=== PATIENT | female | born 1955 | race Caucasian/White ===

== ENCOUNTER 2018-01-21 14:53 | Emergency (ER) | payer OTHER ==
--- OUTSIDE RECORDS SUMMARY | 2018-01-21 15:02 | XMS REPORT | Continuity of Care Document ---
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/2017 [facility], dysfunction of [address] [place] [address] [facility] Atherosclerotic 08/13/19 11/13/2017 [facility] heart disease of [address] [place] [address] coronary Center artery without angina pectoris CAD/ CHEST PAIN Active 07/24/[address] 4 MONTHS Active 07/23/[address] G82.52 - Active 05/31/20 [facility] QUADRIPLEGIA, [address] [place] C1-C4 INCOMPLETE F/U Active 10/20/19 [facility] 17 10CC Active 08/08/19 [facility] 17 2 MONTH FU Active 08/08/19 [facility] 17 10 ML Active 07/04/19 [facility] 17 EVAL Active 06/07/20 [facility] 16 PHENOL Active 01/19/20 [facility] 16 1500 UNITS Active 01/19/20 [facility] 16 6 MONTH FOLLOW UP Active 01/03/[address] FOLLOW UP-3 MONTHS Active 08/23/[address] M50.02 - CERVICAL Active 06/29/19 [facility] DISC DISORDER WITH [facility] NEUROGENIC BLADDER Active 06/25/19 [facility] 6 MONTH EVALUATION 15 DC F/U Active 06/01/20 [facility] 14 QUADRAPLEGIA Active 05/03/20 [facility] 14 CHRONIC NECK PAIN Active 05/03/20 [facility] 14 NEUROGENIC Active 04/28/20 [facility] BLADDER/RETENTION 14 CAD Active 02/10/[address] CAD/SP PCI PRE- Active 02/02/20 [facility] Center CHF Active 07/08/19 [facility] [place] 14 Medical Center FOLLOW-UP NEW TO Active 11/18/19 [facility] FACILITY. 13 Medical Center MANUAL WHEELCHAIR Active 06/17/19 [facility] EVAL 01 Coronary artery Active Problem 12/30/2017 Center disease for Adv Heart Failure, [facility] Diabetes mellitus Active Problem 12/30/2017 [facility] for Adv [facility], [facility] Heart disorder Active Problem 12/30/2017 [facility], [facility] Hypertension Active Problem 12/30/2017 [facility], [facility] Incontinence of Active Problem 12/30/2017 [facility] bowel for Adv Heart Failure, [facility] Incontinence of Active Problem 12/30/2017 [facility] urine for Adv Heart Failure, [facility] Lung collapse Resolved Problem 12/30/2017 [facility], [facility] Neurogenic bladder Active Problem 12/30/2017 [facility], [facility] Pain Active Problem 12/30/2017 [facility], [facility] Psoriasis (<span Active Problem 12/30/2017 Center ID="[id number]">C for Adv onfirmed</span>) Heart Failure, [facility] Quadriplegia Active Problem 12/30/2017 [facility], [facility] Rheumatoid Active Problem 12/30/2017 [facility] arthritis for Adv Heart Failure, [facility] Other muscle spasm Active Problem 12/30/2017 [facility], [facility] Chest pain, 11/13/2017 [facility] Coronary artery Active Problem 12/26/2017 Center disease for Adv Heart Failure,[facility] Diabetes mellitus Active Problem 12/26/2017 [facility] Heart disorder Active Problem 12/26/2017 [facility] Hypertension Active Problem 12/26/2017 [facility] Incontinence of Active Problem 12/26/2017 [facility] bowel for Adv Heart Failure,[facility] Incontinence of Active Problem 12/26/2017 [facility] urine for Adv Heart Failure,[facility] Lung collapse Resolved Problem 12/26/2017 [facility] for Adv Heart Failure,[facility] Neurogenic bladder Active Problem 12/26/2017 [facility] Pain Active Problem 12/26/2017 [facility] for Adv Heart Failure,[facility] Psoriasis (<span Active Problem 12/26/2017 Center ID="[id number]">C for Adv onfirmed</span>) Heart Failure,[facility] Quadriplegia Active Problem 12/26/2017 [facility] for Adv Heart Failure,[facility] Rheumatoid Active Problem 12/26/2017 [facility] arthritis for Adv Heart Failure,[facility] Other muscle spasm Active Problem 12/26/2017 [facility] for Adv Heart Failure,[facility] Essential 10/29/2017 [facility] hypertension [facility] Hyperlipidemia, 10/29/2017 [facility] unspecified [facility] Center Spinal stenosis, 10/29/2017 [facility] cervical region [facility] Type 2 diabetes 10/29/2017 [facility] mellitus without Medical complications Center ROUTINE MEDICAL Active [facility] QUADRPLG C1-C4, Active [facility] INCOMPLT CRNRY ATHRSCL Active [facility] PRE-OP EXAM NOS Active [facility] LATE EFF SPINAL Active [facility] CORD INJ FOLLOW-UP EXAM NOS Active [facility] MEDICAL SERVICES Active [facility] NOT AVAILABLE IN Medical HOME Center PARAPLEGIA, Active [facility] UNSPECIFIED QUADRIPLEGIA, Active [facility] UNSPECIFIED ENCNTR FOR GENERAL Active [facility] ADULT MEDICAL EXAM Medical W/ Center OTHER MUSCLE SPASM Active [facility] OTHER ABNORMAL Active [facility] INVOLUNTARY MOVEMENTS CRAMP AND SPASM Active [facility] ENCNTR FOR F/U Active [facility] EXAM AFT TRTMT FOR COND O OTHER CHRONIC PAIN Active [facility] Medications Medication Details Route Status Patient Ordering Order Source Instructions Provider Date atorvastatin 40 mg 40 mg=1 tab, Active 12/23[facility] oral tablet PO, Bedtime, 2017 Medical # 90 tab, 3 Center Refill(s) leflunomide 10 mg See Active 12/23[facility] oral tablet Instructions, 2018 Medical 1 tab PO Q Center Saturday and Saturday, 0 Refill(s) Centratex 1 cap, PO, Active 11/21[facility] qWeek, 0 2018 Refill(s) nortriptyline 25 mg 25 mg=1 cap, Active 11/21[facility] oral capsule PO, Bedtime, 2018 start with 1 tab nightly for 1 week, then increase to twice daily if needed, # 30 cap, 1 Refill(s), Pharmacy: [facility] [id number] Zinc-220 oral capsule 220 mg=1 cap, Active [facility] PO, Daily, 0 2018 Refill(s) sodium chloride 500 mL, Inactive [facility] Route: IRRIG, 2018 Irrigation Site: Bladder, "For Irrigation Only", Start date: 10/21/17 13:39:00 CDT, Stop date: 10/21/17 13:39:00 CDTNotes: For irrigation only. gabapentin 400 MG See Active [facility] Oral Capsule Instructions, 2018 # 540 unknown unit, Refill(s) 1, TAKE 2 CAPSULES BY MOUTH THREE TIMES DAILY, Pharmacy: [facility] [id number] clopidogrel 75 MG 75 mg=1 tab, Active Oral Tablet [Plavix] PO, Daily, # 2018 Center 90 tab, 3 for Adv Refill(s), Heart Pharmacy: [facility] [id number], PLEASE FAX ALL FUTURE REFILL REQUESTS TO: [phone]. magnesium oxide 600 600 mg=1 cap, Active [place] mg oral capsule PO, Daily, 0 2018 Medical Refill(s) [place] Diclofenac Sodium 20 TOP, BID, 0 Active [place] MG/ML Topical Refill(s) 2018 [facility] Center Fish Oil oral capsule =1 cap, PO, Active [place] Daily, # 100 2018 Medical cap, 0 Center Refill(s) gabapentin 800 MG 800 mg=1 tab, No Longer [facility] Oral Tablet PO, TID, # Active 2018 270 tab, 0 Refill(s), Pharmacy: [facility] [id number] gabapentin 400 MG 800 mg=2 cap, No Longer [facility] Oral Capsule PO, TID, # Active 2018 540 cap, 0 Refill(s), Pharmacy: [facility] [address] losartan 50 mg oral 100 mg=2 tab, Active tablet PO, Daily, # 2017 Center 60 tab, 2 for Adv Refill(s), Heart Pharmacy: [facility] [id number], PLEASE FAX ALL FUTURE REFILL REQUESTS TO: [phone] baclofen 20 mg oral 20 mg=1 tab, Active [facility] tablet PO, TID, # 2017 273 tab, 4 Refill(s), Pharmacy: [facility] [id number] cephalexin 500 mg 500 mg=1 tab, Active 05/23/ [facility] oral tablet PO, Daily, 0 2017 Refill(s) 24 HR Metoprolol 25 mg=1 tab, Active 05/16/ Tartrate 25 MG PO, BID, # 2017 Center Extended Release 180 tab, 3 for Adv Tablet [Toprol] Refill(s), Heart Pharmacy: [facility] [id number] 24 HR Metoprolol 25 mg=1 tab, Active 05/01/ Tartrate 25 MG PO, BID, # 2017 Center Extended Release 180 tab, 3 for Adv Tablet [Toprol] Refill(s), Heart Pharmacy: Failure [facility] [id number] cyclobenzaprine 10 mg 10 mg=1 tab, Active 11/29/ [facility] oral tablet PO, TID, # 90 2017 tab, 5 Refill(s), [facility] [address] losartan 50 mg oral 100 mg=2 tab, Active 11/26/ tablet PO, Daily, # 2017 Center 60 tab, 5 for Adv Refill(s), Heart Pharmacy: Failure [facility] [id number], PLEASE FAX ALL FUTURE REFILL REQUESTS TO: [phone] atorvastatin 80 mg 80 mg=1 tab, Active 11/19/ oral tablet PO, Daily, X 2017 Center 90 day, # 90 for Adv tab, 3 Heart Refill(s), Failure [facility] [address] 24 HR Isosorbide 30 mg=1 tab, Active 11/02/ Mononitrate 30 MG PO, QAM, # 90 2017 Center Extended Release tab, 3 for Adv Tablet [Imdur] Refill(s), Heart Pharmacy: Failure [facility] [address] losartan 50 mg oral 100 mg=2 tab, Active 10/18/ tablet PO, Daily, # 2017 Center 60 tab, 5 for Adv Refill(s), Heart Pharmacy: Failure [facility] [address], PLEASE FAX ALL FUTURE REFILL REQUESTS TO: [phone] Nitroglycerin 0.4 MG 0.4 mg=1 tab, Active 08/28/ Sublingual Tablet SL, Q5Min, 2017 Center PRN Chest for Adv pain, Give up Heart to 3 doses. Failure Call 911 if pain persists., # 100 tab, 1 Refill(s), Pharmacy: [facility] [id number], PLEASE FAX ALL FUTURE REFILL REQUESTS TO: [phone]. clopidogrel 75 MG 75 mg=1 tab, Active Oral Tablet [Plavix] PO, Daily, # 2017 Center 90 tab, 3 for Adv Refill(s), Heart Pharmacy: Failure [facility] [id number], PLEASE FAX ALL FUTURE REFILL REQUESTS TO: [phone]. tramadol 50 mg=1 tab, Active [facility] hydrochloride 50 MG PO, BID, PRN 2017 Oral Tablet Pain Score 7-10, X 30 day, # 60 tab, 0 Refill(s) Nitroglycerin 0.4 MG 0.4 mg=1 tab, Active [place] Sublingual Tablet SL, Q5Min, 2017 Medical [Nitrostat] PRN Chest Center Pain, # 100 tab, 0 Refill(s), Pharmacy: [facility] [id number] lidocaine 1% 10 mL, Route: Inactive [facility] preservative-free intra-ARTICUL 2017 injectable solution AR, Dosing Weight 57.273, kg, ONCE, Start date: 07/11/16 12:43:00 [employer], Stop date: 07/11/16 12:43:00 [employer] losartan 50 mg oral 100 mg=2 tab, Active [place] tablet PO, Daily, 2017 Medical Reminder: Center Follow-up appointment with Dr. Tang07/23/16 @ 11:20 A.M., # 60 tab, 1 Refill(s), Pharmacy: [facility] [id number] cyclobenzaprine 10 mg 5 mg=0.5 tab, Active [facility] oral tablet PO, TID, PRN 2016 for spasms, Start taking 0.5 mg TID x 1 week then increase it to 10 mg TID, X 30 day, # 45 tab, 4 Refill(s), Pharmacy: [facility] [id number] gabapentin 800 MG 800 mg=1 tab, Active [facility] Oral Tablet PO, TID, # 90 2016 tab, 3 Refill(s), Pharmacy: [facility] [id number] 24 HR Metoprolol 25 mg=1 tab, Active Tartrate 25 MG PO, BID, # 2016 [place] Extended Release 180 tab, 3 for Adv Tablet [Toprol] Refill(s), Heart Pharmacy: Failure [facility] [id number] phenol 6% AQ in water 15 mL, Route: Inactive [facility] for injection NERVE BLOCK, 2016 Dosing Weight 58.636, kg, ONCALL, Start date: 02/17/16 14:00:00 CDT, Duration: 30 day, Stop date: 03/18/16 13:59:00 CDT Losartan Potassium 50 100 mg=2 tab, Active MG Oral Tablet PO, Daily, # 2016 [place] [Cozaar] 60 tab, 4 for Adv Refill(s), Heart Pharmacy: [facility] [address] tizanidine 2 mg oral 4 mg=2 tab, Active [facility] tablet PO, Q8H, # 2016 180 tab, 2 Refill(s), Pharmacy: [facility] [address] certolizumab pegol See Active [facility] 200 MG/ML Injectable Instructions, 2016 Solution [Cimzia] SUB-Q q4wk, 0 Refill(s) atorvastatin 80 mg See Active [facility] oral tablet Instructions, 2016 # 30 tab, TAKE 1 TABLET BY MOUTH AT BEDTIME., [facility] [id number] 24 HR Metoprolol 25 mg=1 tab, Active [place] Tartrate 25 MG PO, BID, 0 2016 Medical Extended Release Refill(s) [place] Tablet [Toprol] baclofen 10 mg oral 10 mg=1 tab, Active [place] tablet PO, QID, 0 2016 Medical Refill(s) [place] certolizumab pegol See Active [place] 200 MG/ML Injectable Instructions, 2016 Medical Solution [Cimzia] 200 mg SUB-Q Center twice a month, 0 Refill(s) methotrexate 2.5 mg 2.5 mg=1 tab, Active [place] oral tablet PO, TID, 0 2016 Medical Refill(s) Center Probiotic Formula 1 cap, PO, Active [facility] Daily, 0 2016 Medical Refill(s) [place] duloxetine 60 MG 60 mg=1 cap, Active [facility] Enteric Coated PO, Daily, # 2016 Medical Capsule [Cymbalta] 30 cap, 0 Center Refill(s) lubiprostone 0.024 MG 24 Active [facility] Oral Capsule microgram=1 2016 Medical [Amitiza] cap, PO, BID, Center # 60 cap, 0 Refill(s) D3 1000 1,000 Active [facility] IntlUnit, PO, 2016 Medical Daily, 0 Center Refill(s) Metformin 500 mg=1 tab, Active [facility] hydrochloride 500 MG PO, TID, 0 2016 Medical Oral Tablet Refill(s) [place] promethazine 25 mg 25 mg=1 tab, Active [facility] oral tablet PO, PRN, 0 2016 Medical Refill(s) [place] gabapentin 800 MG 800 mg=1 tab, Active [facility] Oral Tablet PO, TID, # 90 2016 tab, 3 Refill(s) gabapentin 800 MG 800 mg=1 tab, Inactive [facility] Oral Tablet PO, TID, # 90 2016 tab, 3 Refill(s) atorvastatin 80 MG 80 mg=1 tab, Active Oral Tablet [Lipitor] PO, Bedtime, 2016 Center # 90 tab, 3 for Adv Refill(s), Heart Pharmacy: [facility] [id number], PLEASE FAX ALL FUTURE REFILL REQUESTS TO: [phone]. 24 HR Isosorbide 30 mg=1 tab, Active [facility] Mononitrate 30 MG PO, QAM, # 90 2016 Medical Extended Release tab, 3 Center Tablet [Imdur] Refill(s), Pharmacy: [facility] [id number] clopidogrel 75 MG 75 mg=1 tab, Active Oral Tablet [Plavix] PO, Daily, # 2016 Center 90 tab, 3 for Adv Refill(s), [facility] [employer] [facility] [address], PLEASE FAX ALL FUTURE REFILL REQUESTS TO: [phone]. baclofen 10 mg oral 10 mg=1 tab, Active 03/08/ [facility] [place] tablet PO, Q8H-05, # 2016 Medical 90 tab, 0 Center Refill(s), Pharmacy: [facility] [address] Losartan Potassium 50 100 mg=2 tab, Active [place] MG Oral Tablet PO, Daily, # 2016 Medical [Cozaar] 60 tab, 4 Center Refill(s), Pharmacy: [facility] [address] Nitroglycerin 0.4 0.4 mg=1 Active [place] MG/ACTUAT Mucosal spray, SL, 2015 Medical [place] Q5Min, # 4 Center gm, 1 Refill(s), Pharmacy: [facility], Please fax all future refill requests to: [phone]. 24 HR Metoprolol 25 mg=1 tab, Active [place] Tartrate 25 MG PO, BID, # 2015 Medical Extended Release 180 tab, 3 Center Tablet [Toprol] Refill(s), Pharmacy: [facility] Aspirin 81 MG 81 mg=1 tab, Active [facility] Chewable Tablet PO, Daily, # 2015 Medical 30 tab, 0 Center Refill(s), other Metformin 1,000 mg=1 Active [facility] hydrochloride 1000 MG tab, PO, 2015 Medical Oral Tablet BID-Meals, # Center [Glucophage] 60 tab, 1 Refill(s) Losartan Potassium 50 50 mg=1 tab, Active [place] MG Oral Tablet PO, Daily, # 2015 Medical [Cozaar] 30 tab, 0 Center Refill(s) Vitamin B 12 =1 mL, per Active [facility] month, 0 2014 Medical Refill(s) Center Vitamin C 1000 mg 1,000 mg=1 Active [facility] oral tablet tab, PO, 2015 Medical Daily, # 30 Center tab, 0 Refill(s) atorvastatin 80 MG 80 mg=1 tab, Active [facility] Oral Tablet [Lipitor] PO, Bedtime, 2014 Medical # 30 tab, 0 Center Refill(s) lubiprostone 24 mcg 24 Active [facility] oral capsule microgram=1 2014 Medical cap, PO, BID, Center # 60 cap, 0 Refill(s) meloxicam 15 mg oral 15 mg=1 tab, Active [facility] tablet PO, Daily, # 2015 14 tab, 0 Refill(s) gabapentin 300 MG 600 mg=2 cap, Active [facility] Oral Capsule PO, TID, # 2014 180 cap, 11 Refill(s) Aquaphor topical 1 appl, TOP, Active [facility] ointment BID, for dry 2014 skin, # 454 gm, 0 Refill(s), Pharmacy: [facility]94 Aspirin 81 MG 1/2 tablet, Active [facility] Chewable Tablet PO, Daily, # 2014 30 tab, 0 Refill(s), Pharmacy: [facility] #1294 Trazodone 100 mg=1 tab, Active [facility] Hydrochloride 100 MG PO, Bedtime, 2014 Oral Tablet # 30 tab, 6 Refill(s), Pharmacy: [facility] #1294 gabapentin 300 MG 300 mg=1 cap, Active 07/06/ [facility] Oral Capsule PO, Q8H-05, # 2014 90 cap, 6 Refill(s), Pharmacy: [facility] #1294 baclofen 10 mg oral 10 mg=1 tab, Active [facility] tablet PO, Q8H-05, # 2014 90 tab, 6 Refill(s), Pharmacy: [facility] #[id number] 24 HR Metoprolol 25 mg=1 tab, Active 06/04/ Tartrate 25 MG PO, Daily, # 2013 Center Extended Release 30 tab, 5 for Adv Tablet [Toprol] Refill(s), Heart [facility]: [facility] Docusate Sodium 100 100 mg=1 cap, Active 06/03/ [facility] MG Oral Capsule PO, BID, 2013 [Colace] Constipation, # 60 cap, 1 Refill(s) Docusate Sodium 56.6 283 mg=1 ea, Inactive [facility] MG/ML Enema [Enemeez] AK, Every 2013 Other Day, # 30 ea, 0 Refill(s) gabapentin 300 MG 300 mg=1 cap, Active 06/03/ [facility] Oral Capsule PO, Q8H-05, # 2013 90 cap, 0 Refill(s) Magnesium Sulfate 2 gm, 50 mL, Inactive [facility] Route: IVPB, 2013 Drug form: INJ, Q2H, Dosing Weight 60.966, kg, Total dose=4 gm, Start date: 06/02/14 16:00:00, Duration: 2 doses or times, Stop date: 06/02/14 18:00:00 Amiloride 5 mg, 1 tab, No Longer [facility] Route: PO, Active 2013 Drug form: TAB, Daily, Dosing Weight 60.966, kg, Start date: 06/02/14 8:30:00, Duration: 60 day, Stop date: 07/31/14 8:30:00Notes: Non-Formulary Drug (Same as: Midamor) Miralax 17 gm, Route: No Longer [facility] PO, Daily, Active 2013 Dosing Weight 60.966, kg, Start date: 06/02/14 8:30:00, Duration: 30 day, Stop date: 07/01/14 8:30:00 Miralax 17 gm, 1 pkt, No Longer [facility] Route: PO, Active 2013 Drug form: PWDR, BID, Dosing Weight 60.966, kg, Start date: 06/01/14 21:00:00, Duration: 30 day, Stop date: 07/01/14 8:30:00Notes: Dissolve in 8 oz of water or juice. (Same as: Miralax) magnesium sulfate 2 gm, 50 mL, Inactive [facility] Route: IVPB, 2013 Drug form: INJ, ONCE, Start date: 06/01/14 17:47:00, Stop date: 06/01/14 17:47:00 magnesium oxide 400 800 mg=2 tab, Active [facility] mg oral tablet PO, TID, 0 2013 Refill(s) Lidocaine 2 patch, TOP, Active [facility] Hydrochloride 0.05 Daily, Remove 2014 MG/MG Transdermal after 12 Patch [Lidoderm] hours, 0 Refill(s)Spec ial Instructions: Remove after 12 hours Fluocinonide 0.5 1 appl, TOP, Active [facility] MG/ML Topical Cream BID, 0 2013 Refill(s) Folic Acid 1 MG Oral 1 mg=1 tab, Active [facility] Tablet PO, Daily, 0 2013 Refill(s) bisacodyl 5 mg oral 10 mg=2 tab, Active [facility] enteric coated tablet PO, Daily, # 2013 60 tab, 1 Refill(s) bisacodyl 10 mg 10 mg=1 supp, Active [facility] rectal suppository AK, Daily, # 2013 30 supp, 1 Refill(s) gabapentin 300 MG 300 mg=1 cap, No Longer [facility] Oral Capsule PO, Q8H, # 90 Active 2013 cap, 1 Refill(s) Cranberry preparation 36 mg=1 cap, Active [facility] PO, Daily, 0 2013 Refill(s) baclofen 10 mg oral 10 mg=1 tab, Active [facility] tablet PO, Q8H-05, # 2013 90 tab, 1 Refill(s) aMILoride 5 mg oral 5 mg=1 tab, Active [facility] tablet PO, Daily, # 2013 30 tab, 0 Refill(s) atorvastatin 40 mg 80 mg=2 tab, Active [facility] oral tablet PO, Bedtime, 2013 0 Refill(s) ascorbic acid 500 mg 500 mg=1 tab, Active [facility] oral tablet PO, BID, 0 2013 Refill(s) enoxaparin 30 mg/0.3 30 mg=0.3 mL, Active [facility] mL subcutaneous SUB-Q, 2013 solution [id number], # 42 unit, 0 Refill(s) pantoprazole 40 mg 40 mg=1 tab, Active [facility] oral enteric coated PO, Before 2013 tablet Breakfast, 0 Refill(s) 24 HR Metoprolol 1/2 tab, PO, No Longer [facility] Tartrate 25 MG Daily, 0 Active 2013 Extended Release Refill(s) Tablet [Toprol] polyethylene glycol 17 gm, PO, Active [facility] 3350 oral powder for BID, # 527 2014 reconstitution gm, 1 Refill(s) Trazodone 50 mg=1 tab, Active [facility] Hydrochloride 50 MG PO, Bedtime, 2013 Oral Tablet # 30 tab, 1 Refill(s) Magnesium Sulfate 2 gm, 50 mL, Inactive [facility] Route: IVPB, 2013 Drug form: INJ, Q2H, Dosing Weight 60.966, kg, Total dose=4 gm, Start date: 06/01/14 12:00:00, Duration: 2 doses or times, Stop date: 06/01/14 14:00:00 BD Normal Saline 10 mL, Route: Inactive [facility] Flush IV, Drug 2013 Form: INJ, ONCE, Start date: 06/01/14 11:19:00, Stop date: 06/01/14 11:19:00Notes : (Same as: BD Posiflush) BD Normal Saline 10 mL, Route: Inactive [facility] Flush IV, Drug 2013 Form: INJ, PRN, PRN Other -See Comment, Start date: 05/31/14 17:52:00, Duration: 6 hr, Stop date: 05/31/14 23:51:00Notes : (Same as: BD Posiflush) Magnesium Sulfate 2 gm, 50 mL, Inactive [facility] Route: IVPB2013 Drug form: INJ, Q2H, Dosing Weight 60.966, kg, Total dose=4 gm, Start date: 05/31/14 12:00:00, Duration: 2 doses or times, Stop date: 05/31/14 14:00:00 Docusate Sodium 56.6 283 mg, 5 mL, No Longer [facility] MG/ML Enema [Enemeez] Route: AK, Active 2013 Drug form: [place], Every Other Day, Dosing Weight 60.966, kg, Start date: 05/30/14 9:00:00, Stop date: 07/27/14 21:00:00Notes : Same as Enemeez Non formulary item Baclofen 10 mg, 1 tab, No Longer [facility] Route: PO, Active 2013 Drug form: TAB, Q8H-05, Dosing Weight 60.966, kg, Start date: 05/27/14 21:00:00, Duration: 30 day, Stop date: 06/26/14 13:00:00Notes : (Same As: Lioresal) Fluocinonide 0.5 1 appl, No Longer [facility] MG/ML Topical Cream Route: TOP, Active 2013 BID, Drug form: CRM, Start date: 05/26/14 8:30:00, Duration: 30 day, Stop date: 06/24/14 21:00:00Notes : (Same as: Lidex) sennosides, [facility] 34.4 mg, 4 No Longer [facility] tab, Route: Active 2013 PO, Drug Form: TAB, Dosing Weight 65.455, kg, QNoon, Start date: 05/25/14 12:00:00, Duration: 60 day, Stop date: 07/23/14 12:00:00Notes : (Same as: Senokot) Dulcolax Laxative 10 mg, 1 No Longer [facility] supp, Route: Active 2013 AK, Drug form: SUPP, Bedtime, Dosing Weight 60.966, kg, Start date: 05/24/14 21:00:00, Duration: 60 day, Stop date: 07/22/14 21:00:00Notes : (Same As: Dulcolax, Bisco-Lax) Magnesium Oxide 800 mg, 2 No Longer [facility] tab, Route: Active 2013 PO, Drug form: TAB, TID, Dosing Weight 65.455, kg, Start date: 05/24/14 21:00:00, Duration: 60 day, Stop date: 07/23/14 13:00:00Notes : (Same as: Mag-Ox 400) Magnesium oxide [id number] elemental magnesium Dose=____mg magnesium oxide (___mg elemental magnesium) Folic Acid 1 mg, 1 tab, No Longer [facility] Route: PO, Active 2013 Drug form: TAB, Daily, Dosing Weight 60.966, kg, Start date: 05/22/14 8:30:00, Duration: 30 day, Stop date: 06/20/14 8:30:00Notes: (Same as: Folvite) Baclofen 5 mg, 0.5 No Longer [facility] tab, Route: Active 2013 PO, Drug form: TAB, Q8H-05, Dosing Weight 60.966, kg, Start date: 05/21/14 21:00:00, Duration: 30 day, Stop date: 06/20/14 13:00:00Notes : (Same As: Lioresal) azelaic acid 5 MG / 1 tab, Route: Inactive [facility] Cupric oxide 1.5 MG / PO, Drug 2013 Folic Acid 0.5 MG / Form: TAB, Niacinamide 600 MG / Dosing Weight pyridoxine 5 MG / 60.966, kg, Zinc Oxide 10 MG Oral Daily, Start Tablet date: 05/21/14 8:30:00, Duration: 60 day, Stop date: 07/19/14 8:30:00Notes: (Same as:Thera-M, Theragran-M) Give with food. Zinc Sulfate 220 mg, 1 No Longer [facility] cap, Route: Active 2013 PO, Drug form: CAP, Daily, Dosing Weight 60.966, kg, Start date: 05/20/14 8:30:00, Duration: 60 day, Stop date: 07/18/14 8:30:00Notes: (Zinc sulfate capsule) - 220 mg Zinc sulfate=50 mg elemental zinc Same as Zinc Sulfate Ascorbic Acid 120 MG 1 tab, Route: Inactive [facility] / Beta Carotene 2700 PO, Drug 2013 UNT / Calcium Form: TAB, Carbonate 200 MG / Dosing Weight Cholecalciferol 400 60.966, kg, UNT / Cupric oxide 2 Daily, Start MG / Docusate Sodium date: 50 MG / Folic Acid 1 05/20/14 MG / Iron Carbonyl 90 8:30:00, MG / Magnesium Oxide Duration: 60 30 MG / Niacinamide day, Stop 20 MG / Pyridoxine date: Hydrochloride 2 07/18/14 8:30:00 Vitamin C 500 mg, 1 No Longer [facility] tab, Route: Active 2013 PO, Drug form: TAB, BID, Dosing Weight 60.966, kg, Start date: 05/19/14 21:00:00, Duration: 60 day, Stop date: 07/18/14 8:30:00Notes: (Same as: Vitamin C) Oxymetazoline 2 spray, No Longer [facility] hydrochloride 0.5 Route: NASAL, Active 2013 MG/ML Nasal [place] Q12H, Drug [Afrin] form: SPRY, PRN Nasal Congestion, Start date: 05/19/14 11:29:00, Duration: 3 day, Stop date: 05/22/14 11:28:00Notes : (Same as: Afrin) 120 ACTUAT 2 spray, No Longer [facility] Fluticasone Route: Each Active 2013 propionate 0.05 Affected MG/ACTUAT Nasal Nostril, Drug Inhaler [Flonase] Form: SPRY, Dosing Weight 60.966, kg, Daily, PRN Allergic reaction, Start date: 05/19/14 7:33:00, Duration: 30 day, Stop date: 06/18/14 7:32:00Notes: (Same as: Flonase) Robitussin Cough & 10 mL, Route: No Longer [facility] Congestion PO, Drug Active 2013 Form: LIQ, Dosing Weight 60.966, kg, Q6H, PRN as needed for cough, Start date: 05/16/14 21:59:00, Duration: 30 day, Stop date: 06/15/14 21:58:00Notes : (dextromethor burleson-guaifene sin 10-100mg/5ml 120ml LIQ) (Same as: Robitussin-DM ) remove patch 1 patch, No Longer [facility] Route: TOP, Active 2013 Bedtime, Drug form: ERFILM, Start date: 05/16/14 20:30:00, Duration: 60 day, Stop date: 07/14/14 20:30:00Notes : Remove patch 12 hours after application each day. Lidocaine 2 patch, No Longer [facility] Hydrochloride 0.05 Route: TOP, Active 2013 MG/MG Transdermal Daily, Drug Patch [Lidoderm] form: FILM, Start date: 05/16/14 10:30:00, Stop date: 07/15/14 8:30:00, Remove after 12 hoursSpecial Instructions: Remove after 12 hoursNotes: Apply only once for up to 12 hours in a 24-hour period (12 hours on and 12 hours off). (Same as: Lidoderm) "Remove old patch before application of new patch" Mag-Tab SR 168 mg, 2 No Longer [facility] tab, Route: Active 2013 PO, Drug form: TAB, BID, Dosing Weight 60.966, kg, Start date: 05/12/14 21:00:00, Duration: 10 day, Stop date: 05/22/14 8:30:00Notes: (Same as: Mag Tab SR) Docusate Sodium 56.6 283 mg, 5 mL, No Longer [facility] MG/ML Enema [Enemeez] Route: AK, Active 2013 Drug form: GEORGINA, Bedtime, Dosing Weight 60.966, kg, Start date: 05/12/14 21:00:00, Stop date: 07/09/14 21:00:00Notes : Same as Enemeez Non formulary item Milk of Magnesia 60 ml, Route: Inactive [facility] PO, Drug 2013 Form: SUSP, Dosing Weight 60.966, kg, ONCE, Start date: 05/12/14 16:19:00, Stop date: 05/12/14 16:19:00Notes : (Same as: Milk of Magnesia, MOM) Cascara sagrada 450 mg, 1 Inactive [facility] cap, Route: 2013 PO, Drug Form: CAP, Dosing Weight 60.966, kg, ONCE, Start date: 05/12/14 11:29:00, Stop date: 05/12/14 11:29:00Notes : Non-Formulary Item Milk of Magnesia 60 ml, Route: Inactive [facility] PO, Drug 2013 Form: SUSP, Dosing Weight 60.966, kg, ONCE, Start date: 05/12/14 11:29:00, Stop date: 05/12/14 11:29:00Notes : (Same as: Milk of Magnesia, MOM) SMOG Enema 900 ml, Inactive [facility] Route: AK, 2013 Drug Form: GEORGINA, Dosing Weight 60.966, kg, ONCE, Start date: 05/12/14 11:29:00, Duration: 1 doses or times, Stop date: 05/12/14 11:29:00Notes : Non formulary item gabapentin 300 MG 300 mg, 1 No Longer [facility] Oral Capsule cap, Route: Active 2013 PO, Drug form: CAP, Q8H-05, Dosing Weight 65.455, kg, Start date: 05/10/14 21:00:00, Duration: 60 day, Stop date: 07/09/14 13:00:00Notes : (Same as: Neurontin) Docusate Sodium 56.6 283 mg, 5 mL, No Longer [facility] MG/ML Enema [Enemeez] Route: AK, Active 2013 Drug form: GEORGINA, BID, Dosing Weight 60.966, kg, PRN Constipation, Start date: 05/10/14 14:06:00, Duration: 60 day, Stop date: 07/09/14 14:05:00Notes : Same as Enemeez Non formulary item Trazodone 50 mg, 1 tab, No Longer [facility] Hydrochloride 50 MG Route: PO, Active 2013 Oral Tablet Drug form: TAB, Bedtime, Dosing Weight 65.455, kg, Start date: 05/09/14 21:00:00, Duration: 30 day, Stop date: 07/07/14 21:00:00Notes : (Same As: Desyrel) Magnesium Oxide 800 mg, 2 No Longer [facility] tab, Route: 2013 PO, Drug form: TAB, BID, Dosing Weight 65.455, kg, Start date: 05/07/14 21:00:00, Duration: 60 day, Stop date: 07/06/14 8:30:00Notes: (Same as: Mag-Ox 400) Magnesium oxide 349ao=365ct elemental magnesium Dose=____mg magnesium oxide (___mg elemental magnesium) Bisacodyl 10 mg, 1 No Longer [facility] supp, Route: 2013 AK, Drug form: SUPP, Daily, Dosing Weight 65.455, kg, Start date: 05/07/14 20:00:00, Duration: 60 day, Stop date: 07/05/14 20:00:00Notes : (Same As: Dulcolax, Bisco-Lax) sennosides, [facility] 17.2 mg, 2 No Longer [facility] tab, Route: Active 2013 PO, Drug Form: TAB, Dosing Weight 65.455, kg, QNoon, Start date: 05/07/14 12:00:00, Duration: 60 day, Stop date: 07/05/14 12:00:00Notes : (Same as: Senokot) Fish Oil 1,000 mg, 1 No Longer [facility] cap, Route: Active 2013 PO, Drug form: CAP, Daily, Dosing Weight 65.455, kg, Start date: 05/07/14 8:30:00, Duration: 60 day, Stop date: 07/05/14 8:30:00Notes: (Same as: MaxEPA, Emmalena 3 fish oil ) Non-Formular y Drug 24 HR Metoprolol 12.5 mg, 0.5 No Longer [facility] Tartrate 25 MG tab, Route: 2013 Extended Release PO, Drug Tablet [Toprol] form: ERTAB, Daily, Start date: 05/07/14 8:30:00, Duration: 60 day, Stop date: 07/05/14 8:30:00Notes: (Same as: Toprol XL) Do Not Crush Cymbalta 20 mg, 1 cap, No Longer [facility] Route: PO, 2013 Drug form: DRC, Daily, Dosing Weight 65.455, kg, Start date: 05/07/14 8:30:00, Duration: 60 day, Stop date: 07/05/14 8:30:00Notes: (Same as: Cymbalta) (Do Not Crush) Folic Acid 1 mg, 1 tab, No Longer [facility] Route: PO, 2013 Drug form: TAB, Daily, Dosing Weight 65.455, kg, Start date: 05/07/14 8:30:00, Duration: 60 day, Stop date: 07/05/14 8:30:00Notes: (Same as: Folvite) Plavix 75 mg, 1 tab, No Longer [facility] Route: PO, Active 2013 Drug form: TAB, Daily, Dosing Weight 65.455, kg, Start date: 05/07/14 8:30:00, Duration: 60 day, Stop date: 07/05/14 8:30:00Notes: (Same As: Plavix) Bisacodyl 10 mg, 2 tab, No Longer [facility] Route: PO, Active 2013 Drug form: ECTAB, Daily, Dosing Weight 65.455, kg, Start date: 05/07/14 8:30:00, Duration: 60 day, Stop date: 07/05/14 8:30:00Notes: (Same As: Dulcolax, Correctol) (Do Not Crush) "Do Not Crush" Cranberry preparation 36 mg, 1 cap, No Longer [facility] Route: PO, Active 2013 Drug Form: CAP, Dosing Weight 65.455, kg, Daily, Start date: 05/07/14 8:30:00, Stop date: 07/05/14 8:30:00Notes: (Same as: Soni) Non Formulary Metformin 500 mg, 1 No Longer [facility] hydrochloride 500 MG tab, Route: Active 2013 Oral Tablet PO, Drug form: TAB, TID-Meals, Dosing Weight 65.455, kg, Start date: 05/07/14 8:00:00, Duration: 60 day, Stop date: 07/05/14 17:00:00Notes : (Same as: Glucophage) Take with meal Protonix 40 mg, 1 tab, No Longer [facility] Route: PO, Active 2013 Drug form: ECTAB, Before Breakfast, Dosing Weight 65.455, kg, Start date: 05/07/14 7:30:00, Stop date: 08/06/14 7:30:00Notes: Tablet should not be chewed or crushed. (Same as: Protonix) Imdur 30 mg, 1 tab, No Longer [facility] Route: PO, Active 2013 Drug form: ERTAB, QAM, Dosing Weight 65.455, kg, Start date: 05/07/14 6:30:00, Duration: 60 day, Stop date: 07/05/14 6:30:00Notes: (Same as:Imdur) "Do Not Crush" Take on empty stomach/ full glass of water. Do not crush Lovenox 30 mg, 0.3 No Longer [facility] mL, Route: Active 2013 SUB-Q, Drug form: INJ, [id number], Dosing Weight 65.455, kg, Start date: 05/06/14 22:00:00, Stop date: 08/06/14 9:00:00Notes: (Same as: Lovenox) gabapentin 300 MG 300 mg, 1 No Longer [facility] Oral Capsule cap, Route: Active 2013 PO, Drug form: CAP, TID, Dosing Weight 65.455, kg, Start date: 05/06/14 21:00:00, Duration: 60 day, Stop date: 07/05/14 13:00:00Notes : (Same as: Neurontin) Docusate Sodium 100 100 mg, 1 No Longer [facility] MG Oral Capsule cap, Route: Active 2013 [Colace] PO, Drug form: CAP, BID, Dosing Weight 65.455, kg, Start date: 05/06/14 21:00:00, Duration: 60 day, Stop date: 07/05/14 8:30:00Notes: (Same as: Colace) (Do Not Crush) Lipitor 80 mg, 2 tab, No Longer [facility] Route: PO, Active 2013 Drug form: TAB, Bedtime, Dosing Weight 65.455, kg, Start date: 05/06/14 21:00:00, Duration: 60 day, Stop date: 07/04/14 21:00:00Notes : (Same as: Lipitor) Robaxin 500 mg, 1 No Longer [facility] tab, Route: Active 2013 PO, Drug form: TAB, Q8H, PRN Muscle Spasms, Start date: 05/06/14 20:49:00, Duration: 60 day, Stop date: 07/05/14 20:48:00Notes : (Same as:Robaxin) Tylenol 650 mg, 2 No Longer [facility] tab, Route: Active 2013 PO, Drug form: TAB, Q6H, Dosing Weight 65.455, kg, PRN Pain Score 1-3, Start date: 05/06/14 20:37:00, Duration: 60 day, Stop date: 07/05/14 20:36:00Notes : Do not exceed 4 gm/day. (Same as: Tylenol) Acetaminophen 325 MG 1 tab, Route: No Longer [facility] / Hydrocodone PO, Drug Active 2013 Bitartrate 10 MG Oral Form: TAB, Tablet [Elora 10/325] Dosing Weight 65.455, kg, Q4H, PRN Pain Score 1-3, Start date: 05/06/14 20:00:00, Duration: 60 day, Stop date: 07/05/14:59:00Notes : Do not exceed 4gm/day of acetaminophen . (Same as: Elora 325/10) Simethicone 80 mg, 1 tab, No Longer [facility] Route: PO, Active 2013 Drug form: CHEWTAB, Q6H, Dosing Weight 65.455, kg, PRN Gas, Start date: 05/06/14 20:00:00, Duration: 60 day, Stop date: 07/05/14 19:59:00Notes : (Same as: Mylicon) Insulin, Aspart, 10 unit, 0.1 No Longer [facility] Human mL, Route: Active 2013 SUB-Q, Drug form: SOLN, TID-Before Meals, Dosing Weight 65.455, kg, PRN Blood Glucose Results, Start date: 05/06/14 20:00:00, Duration: 60 day, Stop date: 07/05/14:59:00Notes : Roll in palms of hands gently; Do not shake vigorously. (Same as: NovoLOG) "single patient use only" Stable for 28 days at room temperature. Expires in days from _Date Melatonin 6 mg, 2 tab, No Longer [facility] Route: PO, Active 2013 Drug form: TAB, Bedtime, Dosing Weight 65.455, kg, PRN Insomnia, Start date: 05/06/14 20:00:00, Stop date: 07/05/14:59:00Notes : (Same as: Melatonin) Saline Flush 0.9% 10 mL, Route: No Longer [facility] IVP, Drug Active 2013 Form: INJ, Dosing Weight 65.455, kg, PRN, PRN Line Flush, Start date: 05/06/14 20:00:00, Duration: 60 day, Stop date: 07/05/14 19:59:00Notes : (Same as: BD Posiflush) Zofran 4 mg, 1 tab, No Longer [facility] Route: PO, Active 2013 Drug form: TAB, Q8H, Dosing Weight 65.455, kg, PRN Nausea, Start date: 05/06/14 20:00:00, Duration: 60 day, Stop date: 07/05/14 19:59:00Notes : (Same as: Zofran) Acetaminophen 325 MG 1 tab, Route: No Longer [facility] / Hydrocodone PO, Drug Active 2013 Bitartrate 5 MG Oral Form: TAB, Tablet [Elora 5/325] Dosing Weight 65.455, kg, Q4H, PRN Pain Score 1-3, Start date: 05/06/14 20:00:00, Duration: 60 day, Stop date: 07/05/14 19:59:00Notes : (Same as: Elora 325/5) Do not exceed 4gm/day of acetaminophen . Promethazine 25 mg, 1 tab, No Longer [facility] Route: PO, Active 2013 Drug form: TAB, Daily, Dosing Weight 65.455, kg, PRN as needed for nausea/vomiti ng, Start date: 05/06/14 19:51:00, Duration: 60 day, Stop date: 07/05/14 19:50:00Notes : (Same as: Phenergan) Clonidine 0.1 mg, 1 No Longer [facility] Hydrochloride 0.1 MG tab, Route: Active 2013 Oral Tablet PO, Drug form: TAB, TID, Dosing Weight 65.455, kg, PRN Hypertension, Start date: 05/06/14 19:48:00, Duration: 60 day, Stop date: 07/05/14 19:47:00Notes : (Same As: Catapres) Soma 350 mg, Inactive [facility] Route: PO, 2013 Drug form: TAB, Q8H, Dosing Weight 65.455, kg, PRN Muscle Spasms, Start date: 05/06/14 19:48:00, Stop date: 06/05/14 19:47:00 Clonidine 0.1 mg, PO, No Longer [facility] Hydrochloride 0.1 MG TID, Active 2013 Oral Tablet Hypertension, 0 Refill(s) Docusate Sodium 100 100 mg, PO, No Longer [facility] MG Oral Capsule BID, Active 2013 [Colace] Constipation, # 20 cap, 0 Refill(s) 24 HR Isosorbide 30 mg=1 tab, Active [facility] Mononitrate 30 MG PO, QAM, # 90 2013 Extended Release tab, 0 Tablet [Imdur] Refill(s) Carisoprodol 350 MG 350 mg, PO, No Longer [facility] Oral Tablet [Soma] Q8H, Muscle Active 2013 Spasms, 0 Refill(s) bisacodyl 5 mg oral 10 mg=2 tab, No Longer [facility] enteric coated tablet PO, Daily, Active 2013 Constipation, # 20 tab, 0 Refill(s) bisacodyl 10 mg 10 mg=1 supp, No Longer [facility] rectal suppository AK, Daily, Active 2013 Constipation, # 10 supp, 0 Refill(s) gabapentin 300 MG 300 mg=1 cap, No Longer [facility] Oral Capsule PO, TID, # 90 Active 2013 cap, 0 Refill(s) Hydrochlorothiazide 25 mg, Daily, Active [facility] 0 Refill(s) 2013 [facility] Metformin 500 mg=1 tab, Active [facility] hydrochloride 500 MG PO, TID, # 30 2013 [facility] Oral Tablet tab, 0 Center Refill(s) [place] Potassium 99 oral 2 tabs, PO, Active [facility] tablet Daily, 0 2013 Medical Refill(s) [place] Insulin, Aspart, sliding Active [place] [facility] 100 UNT/ML scale, SUB-Q, 2013 [facility] Injectable Solution PRN, # 10 mL, [place] [NovoLog] 0 Refill(s) Insulin Glargine 100 =15 unit, Active [facility] UNT/ML Injectable SUB-Q, Daily, 2013 Medical Solution [Lantus] # 10 ml, 0 Center Refill(s) atorvastatin 80 MG 80 mg=1 tab, Active [facility] Oral Tablet [Lipitor] PO, Bedtime, 2013 Medical # 90 tab, 0 Center Refill(s) promethazine 25 mg 25 mg=1 tab, Active [facility] oral tablet PO, Daily, 2013 [facility] sickness, # 60 tab, 0 Refill(s) Probiotic Formula PO, Daily, 0 Active [facility] oral capsule Refill(s) 2013 [facility] metoprolol 50 mg oral =0.5 mg, PO, Active [facility] tablet, extended Daily, # 30 2013 Medical release tab, 0 Center Refill(s) isosorbide dinitrate 30 mg=1 tab, Active [facility] 30 mg oral tablet PO, Daily, # 2013 Medical 120 tab, 0 Center Refill(s) lubiprostone 0.024 MG 24 Active [facility] Oral Capsule microgram=1 2013 Medical [Amitiza] cap, PO, BID, Center # 60 cap, 0 Refill(s) duloxetine 20 MG 20 mg=1 cap, Active [facility] Enteric Coated PO, Daily, # 2013 Medical Capsule [Cymbalta] 180 cap, 0 Center Refill(s) Zinc 50 mg, PO, Active [facility] Daily, 0 2013 Medical Refill(s) Center Aspirin 81 MG Enteric 81 mg=1 tab, Active [facility] Coated Tablet PO, Daily, # 2013 Medical 0 tab, 0 Center Refill(s) Vitamin C 500 mg oral 500 mg=1 tab, Active [facility] tablet PO, Daily, # 2013 Medical 30 tab, 0 Center Refill(s) clopidogrel 75 MG 75 mg=1 tab, Active [facility] Oral Tablet [Plavix] PO, Daily, # 2013 Medical 30 tab, 0 Center Refill(s) magnesium oxide 400 400 mg=1 tab, Active 11/02[facility] mg oral tablet PO, BID, # 10 2013 Medical tab, 0 Center Refill(s) Fish Oil PO, Daily, 0 Active [facility] Refill(s) 2013 [facility] Folic Acid 400 mg, PO, Active 11/02[facility] BID, 0 2013 Medical Refill(s) Center ramipril 10 mg oral 10 mg=1 cap, Active 11/02[facility] capsule PO, BID, # 30 2013 Medical cap, 0 Center Refill(s) Nitroglycerin 0.4 MG 0.4 mg=1 tab, Active 11/02[facility] Sublingual Tablet SL, Q5Min, 2013 [facility] Chest pain, # Center 100 tab, 0 Refill(s) Allergies, Adverse Reactions, Alerts Substance Category Reaction Severity Reaction Status Date Comments Source type Reported Cipro Assertion Drug Active [facility] allergy erythromycin Assertion Drug Active [facility] allergy Erythromycin Assertion Drug Active [facility] Ethylsuccinate allergy penicillins Assertion Drug Active [facility] allergy NKDA Assertion Drug Active [facility] Immunizations Immunization Date Given Site Status Last Comments Source Updated influenza virus 05/10/2014 Right completed [facility] vaccine, deltoid for Adv inactivated Heart Failure, [facility] influenza virus 05/10/2014 [facility], deltoid for Adv inactivated Heart Failure,[facility] Results Order Name Results Value Reference Date Interpretation Comments Source Range Shoulder 2+ Shoulder 2+ 3 VIEW LEFT SHOULDER 11/21 - [facility] Views Views /2017 - Bilateral Bilateral DX 3 VIEW RIGHT SHOULDER DX Read by: Fadi Betancourt MD Dictated Date/time: 11/21/17 09:49 HISTORY: Tetraplegia. Bilateral shoulder pain. Electronically Signed by: Fadi Betancourt MD 11/21/17 09:53 FINAL REPORT COMPARISON: 05/25/2014 right shoulder x-ray. Left shoulder: Bony structures are intact without fracture or malalignment. Subacromial space normal. Upper left ribs intact. Right shoulder: Bony structures are intact. Subacromial space normal. Acromioclavicular and glenohumeral joints normal. Upper left ribs and clavicle normal. IMPRESSION: Negative bilateral shoulders. END REPORT SL: [id number] Abdomen/Pel Abdomen/Pelv PROCEDURE: CT ABDOMEN AND PELVIS WITHOUT CONTRAST 09/23 - [facility] vis wo IV is wo IV /2017 - contrast CT contrast CT Clinical Indication: Neurogenic bladder. Presurgical planning for suprapubic tube placement . Read by: Fadi Betancourt MD Dictated Date/time: 09/23/17 13:16 Comparison: No relevant priors available. Electronically Signed by: Fadi Betancourt MD 09/23/17 13:22 FINAL REPORT TECHNIQUE: Helical imaging was performed diaphragm through the symphysis with multiplanar reconstructions. IV CONTRAST: None. GI CONTRAST: None. DLP: 141.61 mGy-cm FINDINGS: This examination is limited for the evaluation of solid organs and vascular structures due to lack of intravenous contrast. LOWER CHEST: Chronic interstitial fibrotic changes both lung bases. No acute infiltrate or pleural fluid collection. LIVER: Normal. GALLBLADDER: Cholecystectomy. SPLEEN: Normal. PANCREAS: Normal. ADRENALS: Normal. 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 I cannot definitely follow [address] into the bladder. Kidneys otherwise normal. BOWEL: Stomach is distended with debris and fluid. Large amount of rectal stool. Appendix not identified. PERITONEUM: No free intraperitoneal fluid or air. RETROPERITONEUM: No adenopathy. The aorta is normal. PELVIS: A Figueroa catheter present in the urinary bladder is empty. No pelvic mass. MUSCULOSKELETAL: Bones are osteopenic but intact. IMPRESSION: 1. 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 2. Chronic fibrotic interstitial changes both lung bases. 3. Large amount of rectal and distal sigmoid colon stool. 4. Figueroa catheter present. END REPORT SL: [id number] Spine Spine PROCEDURE: CT CERVICAL SPINE WITHOUT CONTRAST 06/07 - [facility] cervical wo cervical - contrast CT contrast CT Clinical Indication: Pain upper portion of the neck. Read by: Fadi Betancourt MD Dictated Date/time: 06/07/16 14:51 Comparison: Cervical spine x-ray 05/12/2014 Electronically Signed by : Fadi Betancourt MD 06/07/16 15:04 FINAL REPORT Technique: Multi-detector CT imaging of the cervical spine is performed. Coronal and sagittal reconstructions were obtained. DLP 357.90 mGy-cm FINDINGS: ALIGNMENT AND GENERAL ASSESSMENT: There is reversal of the normal lordotic curve. Laminectomies resident C1-C7. There is posterior longitudinal ligament ossification extending from inferior aspect of C3 superiorly to inferior aspect to C1. There is fusion of the articulation between the anterior arch of C1 and the odontoid there also appears to be fusion with the basion. C2-3: Prominent ossification of the longitudinal ligament displaces the cord posteriorly without significant spinal stenosis due to the laminectomy. Bony foramina are patent. C3-4: There is moderate left foraminal stenosis. No significant right foraminal stenosis. Posterior osteophytes are present. C4-5: Posterior osteophytes. There is moderate bilateral foraminal narrowing right worse than left. C5-6: There is severe right and moderate left bony foraminal stenosis. Posterior osteophytes present. C6-7: No bony foraminal stenosis evident. IMPRESSION: 1. Extensive postoperative change as noted above consisting of laminectomies C1-C7. 2. Prominent posterior longitudinal ligament ossification. 3. C1-2 fusion. 4. Multilevel bony foraminal stenosis. END IMPRESSION [id number] Spine Spine MRI CERVICAL SPINE WITHOUT CONTRAST 07/08 - [facility] cervical cervical /2015 - [facility] w/wo w/ [place] contrast contrast MRI MRI TECHNIQUE: Multiplanar multisequence imaging of the cervical spine was performed without administration of intravenous gadolinium. Read by: Sam Haynes MD Dictated Date/time: 07/09/15 08:46 Electronically Signed by: Sam Haynes MD 07/09/15 09:36 FINAL REPORT COMPARISON: 05/12/2014 radiograph exam. FINDINGS: Multilevel disc desiccation is seen. C1 to C6 laminectomies are again seen. No pseudomeningocele, osteomyelitis , or discitis is identified. Multilevel cervical cord myelomalacia and atrophy are present. 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 C2-C3: Left paracentral C2 and C3 level ossification of the posterior longitudinal ligament is seen, measuring up to 4.7 mm AP dimension, with mild central canal stenosis and mild mass effect on the left anterior cord margin. No foraminal stenosis. C3-C4: 3.5 mm central OPLL and disc protrusion complex is seen, without central canal stenosis due to the laminectomy. There is severe left foraminal stenosis due to foraminal osteophytes and left uncovertebral joint arthrosis. C4-C5: 2.8 mm left paracentral disc protrusion is seen without central canal stenosis due to the laminectomy. Bilateral foraminal osteophytes are present with moderate to severe right foraminal stenosis and moderate left foraminal stenosis. C5-C6: Anterior and posterior disc osteophyte complexes are present with the posterior complex measuring 2.8 mm. No central canal stenosis. Severe right foraminal stenosis and moderate left foraminal stenosis are present. C6-C7: 3.5 mm posterior disc osteophyte complex is seen without central canal stenosis due to the laminectomy. There is moderate to severe left foraminal stenosis and moderate right foraminal stenosis. C7-T1: No central canal stenosis. Mild left foraminal stenosis is present. IMPRESSION: 1. Multilevel laminectomies without pseudomeningocele. 2. 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 3. C2 and C3 level OPLL with mild central canal stenosis and mild mass effect on the left cord margin. 4. Additional multilevel disc osteophyte complexes without central canal stenosis due to the laminectomies. 5. C3-C4 to C6-C7 moderate to severe foraminal stenosis. CHEM PANEL eGFR 114 07/06 1Result Comment: The eGFR is calculated using the CKD-EPI formula. In most young, healthy individuals the eGFR will be > 90 mL/min/1.73m2. The eGFR declines with age. An eGFR of 60-89 may be normal in R mL/min/1. some populations, particularly the elderly, for whom the CKD-EPI formula has not been extensively validated. Use of the eGFR is not recommended in the following populations: 3m2 Individuals with unstable creatinine concentrations, including patients and those with serious co-morbid conditions. Patients with extremes in muscle mass or diet. The data above are obtained from the National Kidney Disease Education Program (NKDEP) which additionally recommends that when the eGFR is used in patients with extremes of body mass index for purposes of drug dosing, the eGFR should be multiplied by the estimated BMI. CHEM PANEL CO2 24 meq/L 24 - 32 07/06 [facility] CHEM PANEL Chloride Lvl 94 meq/L 95 - 109 07/06 [facility] CHEM PANEL Alk Phos 76 unit/L 39 - 136 07/06 [facility] CHEM PANEL AST 13 unit/L 0 - 37 07/06 [facility] CHEM PANEL Total 6.3 g/dL 6.4 - 8.4 07/06 [facility] CHEM PANEL Calcium Lvl 9.3 mg/dL 8.5 - 10.5 07/06 [facility] CHEM PANEL Bili Total 0.4 mg/dL 0.2 - 1.3 07/06 [facility] CHEM PANEL ALT 14 unit/L 0 - 65 07/06 [facility] CHEM PANEL Albumin Lvl 3.0 g/dL 3.5 - 5.0 07/06 [facility] CHEM PANEL Potassium 5.0 meq/L 3.5 - 5.1 07/06 [facility] CHEM PANEL Sodium Lvl 128 meq/L 135 - 145 07/06 [facility] CHEM PANEL Creatinine 0.4 mg/dL 0.5 - 1.4 07/06 [facility] CHEM PANEL BUN 8 mg/dL 7 - 22 07/06 [facility] CHEM PANEL Glucose Lvl 113 mg/dL 70 - 99 07/06 2Interpretive Data: Adult reference range values reflect the clinical guidelines of the [place] [employer]. CHEM PANEL AGAP 15.0 meq/L 10.0 - 07/06 [facility] . CHEM PANEL B/C Ratio 20 6 - 25 07/06 [facility] CHEM PANEL Globulin 3.3 g/dL 2.0 - 4.0 07/06 [facility] CHEM PANEL A/G Ratio 0.9 0.7 - 1.6 07/06 [facility] HEMATOLOGY Basophils 0.4 % 0.0 - 1.0 07/06 [facility] HEMATOLOGY Segs-Bands # 8.7 K/CMM 1.5 - 8.1 07/06 [facility] HEMATOLOGY Monocytes 9.2 % 2.0 - 12.0 07/06 [facility] HEMATOLOGY Lymphocytes 20.1 % 20.0 - 07/06 [facility] 40.0 HEMATOLOGY Eosinophils 0.7 % 0.0 - 4.0 07/06 [facility]EMATOLOGY Segs 69.6 % 45.0 - 07/06 [facility] 75.0 HEMATOLOGY Toxic Gran Slight 07/06 [facility] HEMATOLOGY Anisocyte 1+ None Seen 07/06 [facility] *ABN* (07/06/14 10:20 AM) HEMATOLOGY Microcyte 3+ None Seen 07/06 [facility] *NA* (07/06/14 10:20 AM) HEMATOLOGY Basophils # 0.1 K/CMM 0.0 - 0.2 07/06 [facility] HEMATOLOGY Monocytes # 1.1 K/CMM 0.0 - 0.8 07/06 [facility] HEMATOLOGY Eosinophils 0.1 K/CMM 0.0 - 0.5 07/06 [facility] HEMATOLOGY Lymphocytes 2.5 K/CMM 1.0 - 5.5 07/06 [facility] HEMATOLOGY Plt Morph Normal 07/06 [facility] (07/06/14 10:20 AM) HEMATOLOGY Hypochrom 1+ None Seen 07/06 [facility] (07/06/14 10:20 AM) HEMATOLOGY MPV 8.6 fL 7.4 - 10.4 07/06 [facility] HEMATOLOGY RDW 21.4 % 11.5 - 07/06 [facility] 14.5 HEMATOLOGY Platelet 354 K/CMM 133 - 450 07/06 [facility] HEMATOLOGY MCH 21.3 pg 27.0 - 07/06 [facility] 31.0 HEMATOLOGY MCHC 29.8 g/dL 32.0 - 07/06 [facility] 36.0 HEMATOLOGY Hgb 10.6 g/dL 12.0 - 07/06 [facility] 16.0 HEMATOLOGY RBC 5.01 M/CMM 4.20 - 07/06 [facility] 5.40 /2014 HEMATOLOGY Hct 35.7 % 36.0 - 07/06 [facility] 48.0 HEMATOLOGY MCV 71.3 fL 80.0 - 07/06 [facility] 98.0 HEMATOLOGY WBC 12.5 K/CMM 3.7 - 10.4 07/06 [facility] CHEM PANEL Magnesium 1.5 mg/dL 1.8 - 2.4 06/03 [facility] Lvl CHEM PANEL eGFR 106 06/03 1Result Comment: The eGFR is calculated using the CKD-EPI formula. In most young, healthy individuals the eGFR will be > 90 mL/min/1.73m2. The eGFR declines with age. An eGFR of 60-89 may be normal in [facility] mL/min/1.7 some populations, particularly the elderly, for whom the CKD-EPI formula has not been extensively validated. Use of the eGFR is not recommended in the following populations: 3m2 Individuals with unstable creatinine concentrations, including patients and those with serious co-morbid conditions. Patients with extremes in muscle mass or diet. The data above are obtained from the National Kidney Disease Education Program (NKDEP) which additionally recommends that when the eGFR is used in patients with extremes of body mass index for purposes of drug dosing, the eGFR should be multiplied by the estimated BMI. CHEM PANEL CO2 30 meq/L 24 - 32 06/03 [facility] CHEM PANEL Chloride Lvl 101 meq/L 95 - 109 06/03 [facility] CHEM PANEL AGAP 12.6 meq/L 10.0 - 06/03 [facility] . CHEM PANEL Calcium Lvl 9.1 mg/dL 8.5 - 10.5 06/03 [facility] CHEM PANEL Glucose Lvl 104 mg/dL 70 - 99 06/03 4Interpretive Data: Adult reference range values reflect the clinical guidelines of the [place] [employer]. CHEM PANEL Potassium 4.6 meq/L 3.5 - 5.1 06/03 [facility] Lv CHEM PANEL Sodium Lvl 139 meq/L 135 - 145 06/03 CHEM PANEL BUN 4 mg/dL 7 - 22 06/03 [facility] CHEM PANEL Creatinine 0.5 mg/dL 0.5 - 1.4 06/03 [facility] Lv CHEM PANEL Magnesium 1.2 mg/dL 1.8 - 2.4 06/02 [facility] Lv CHEM PANEL eGFR 106 06/02 2Result Comment: The eGFR is calculated using the CKD-EPI formula. In most young, healthy individuals the eGFR will be > 90 mL/min/1.73m2. The eGFR declines with age. An eGFR of 60-89 may be normal in [facility] mL/min/1.7 some populations, particularly the elderly, for whom the CKD-EPI formula has not been extensively validated. Use of the eGFR is not recommended in the following populations: 3m2 Individuals with unstable creatinine concentrations, including patients and those with serious co-morbid conditions. Patients with extremes in muscle mass or diet. The data above are obtained from the National Kidney Disease Education Program (NKDEP) which additionally recommends that when the eGFR is used in patients with extremes of body mass index for purposes of drug dosing, the eGFR should be multiplied by the estimated BMI. CHEM PANEL Calcium Lvl 8.9 mg/dL 8.5 - 10.5 06/02 [facility] CHEM PANEL AGAP 15.3 meq/L 10.0 - 06/02 [facility] . CHEM PANEL CO2 28 meq/L 24 - 32 06/02 [facility] CHEM PANEL Creatinine 0.5 mg/dL 0.5 - 1.4 06/02 [facility] CHEM PANEL Sodium Lvl 138 meq/L 135 - 145 06/02 CHEM PANEL Potassium 4.3 meq/L 3.5 - 5.1 06/02 [facility] CHEM PANEL Chloride Lvl 99 meq/L 95 - 109 06/02 CHEM PANEL BUN 7 mg/dL 7 - 22 06/02 CHEM PANEL Glucose Lvl 123 mg/dL 70 - 99 06/02 5Interpretive Data: Adult reference range values reflect the clinical guidelines of the [place] [employer]. CHEM PANEL Magnesium 1.5 mg/dL 1.8 - 2.4 06/01 [facility] ELECTROLYTE CO2 29 meq/L 24 - 32 06/01 [facility] ELECTROLYTE Calcium Lvl 8.7 mg/dL 8.5 - 10.5 06/01 [facility] ELECTROLYTE AGAP 14.7 meq/L 10.0 - 06/01 [facility] .0 ELECTROLYTE Chloride Lvl 99 meq/L 95 - 109 06/01 R ELECTROLYTE Potassium 4.7 meq/L 3.5 - 5.1 06/01 [facility] ELECTROLYTE Creatinine 0.5 mg/dL 0.5 - 1.4 06/01 [facility] ELECTROLYTE Sodium Lvl 138 meq/L 135 - 145 06/01 R ELECTROLYTE eGFR 106 06/01 3Result Comment: The eGFR is calculated using the CKD-EPI formula. In most young, healthy individuals the eGFR will be > 90 mL/min/1.73m2. The eGFR declines with age. An eGFR of 60-89 may be normal in [facility] mL/min/1.7 /2013 some populations, particularly the elderly, for whom the CKD-EPI formula has not been extensively validated. Use of the eGFR is not recommended in the following populations: 3m2 Individuals with unstable creatinine concentrations, including patients and those with serious co-morbid conditions. Patients with extremes in muscle mass or diet. The data above are obtained from the National Kidney Disease Education Program (NKDEP) which additionally recommends that when the eGFR is used in patients with extremes of body mass index for purposes of drug dosing, the eGFR should be multiplied by the estimated BMI. ELECTROLYTE BUN 6 mg/dL 7 - 22 06/01 [facility] S ELECTROLYTE Glucose Lvl 92 mg/dL 70 - 99 06/01 6Interpretive Data: Adult reference range values reflect the clinical guidelines [facility] of the [place] [employer]. CHEM PANEL Phosphorus 3.1 mg/dL 2.5 - 4.5 05/31 [facility] HEMATOLOGY Eosinophils 0.2 K/CMM 0.0 - 0.5 05/31 [facility] HEMATOLOGY Lymphocytes 3.2 K/CMM 1.0 - 5.5 05/31 [facility] HEMATOLOGY Anisocyte 1+ None Seen 05/31 [facility] *ABN* (05/31/14 4:16 AM) HEMATOLOGY Basophils # 0.0 K/CMM 0.0 - 0.2 05/31 [facility] HEMATOLOGY Monocytes # 0.6 K/CMM 0.0 - 0.8 05/31 [facility] HEMATOLOGY Polychrom Slight 05/31 [facility] HEMATOLOGY Microcyte 3+ None Seen 05/31 [facility] *NA* (05/31/14 4:16 AM) HEMATOLOGY Lymphocytes 33.1 % 20.0 - 05/31 [facility] 40.0 HEMATOLOGY Monocytes 6.6 % 2.0 - 12.0 05/31 [facility] HEMATOLOGY Segs-Bands # 5.8 K/CMM 1.5 - 8.1 05/31 [facility] HEMATOLOGY Basophils 0.1 % 0.0 - 1.0 05/31 [facility] HEMATOLOGY Segs 58.5 % 45.0 - 05/31 [facility] 75.0 HEMATOLOGY Eosinophils 1.7 % 0.0 - 4.0 05/31 [facility] HEMATOLOGY MCHC 31.3 g/dL 32.0 - 05/31 [facility] 36.0 /2013 HEMATOLOGY MCH 21.7 pg 27.0 - 05/31 [facility] 31.0 HEMATOLOGY MPV 8.2 fL 7.4 - 10.4 05/31 [facility] /2013 HEMATOLOGY Platelet 563 K/CMM 133 - 450 05/31 [facility] HEMATOLOGY RDW 20.7 % 11.5 - 05/31 [facility] 14. HEMATOLOGY WBC 9.8 K/CMM 3.7 - 10.4 05/31 [facility] HEMATOLOGY MCV 69.2 fL 80.0 - 05/31 [facility] 98.0 HEMATOLOGY Hct 28.9 % 36.0 - 05/31 [facility] 48.0 HEMATOLOGY Hgb 9.1 g/dL 12.0 - 05/31 [facility] 16.0 HEMATOLOGY RBC 4.18 M/CMM 4.20 - 05/31 [facility] 5. CHEM PANEL Phosphorus 2.8 mg/dL 2.5 - 4.5 05/24 [facility] HEMATOLOGY Monocytes # 0.5 K/CMM 0.0 - 0.8 05/24 [facility] HEMATOLOGY Lymphocytes 3.3 K/CMM 1.0 - 5.5 05/24 [facility] HEMATOLOGY Segs-Bands # 2.2 K/CMM 1.5 - 8.1 05/24 [facility] HEMATOLOGY Eosinophils 3.5 % 0.0 - 4.0 05/24 [facility] HEMATOLOGY Monocytes 7.4 % 2.0 - 12.0 05/24 [facility] HEMATOLOGY Lymphocytes 52.6 % 20.0 - 05/24 [facility] 40.0 HEMATOLOGY Basophils 0.3 % 0.0 - 1.0 05/24 [facility] HEMATOLOGY Microcyte 3+ None Seen 05/24 [facility] *NA* (05/24/14 5:00 AM) HEMATOLOGY Anisocyte 1+ None Seen 05/24 [facility] *ABN* (05/24/14 5:00 AM) HEMATOLOGY Basophils # 0.0 K/CMM 0.0 - 0.2 05/24 [facility] HEMATOLOGY Eosinophils 0.2 K/CMM 0.0 - 0.5 05/24 [facility] HEMATOLOGY Plt Morph Normal 05/24 [facility] (05/24/14 5:00 AM) HEMATOLOGY Segs 36.2 % 45.0 - 05/24 [facility] 75.0 HEMATOLOGY Hypochrom 1+ None Seen 05/24 [facility] (05/24/14 5:00 AM) HEMATOLOGY RBC 4.35 M/CMM 4.20 - 05/24 [facility] 5. HEMATOLOGY WBC 6.2 K/CMM 3.7 - 10.4 05/24 [facility] HEMATOLOGY Hct 29.3 % 36.0 - 05/24 [facility] 48.0 HEMATOLOGY MCHC 30.7 g/dL 32.0 - 05/24 [facility] 36.0 HEMATOLOGY Hgb 9.0 g/dL 12.0 - 05/24 [facility] 16.0 HEMATOLOGY MCV 67.4 fL 80.0 - 05/24 [facility] 98.0 HEMATOLOGY MCH 20.7 pg 27.0 - 05/24 [facility] 31.0 HEMATOLOGY RDW 21.3 % 11.5 - 05/24 [facility] 14. HEMATOLOGY Platelet 409 K/CMM 133 - 450 05/24 [facility] HEMATOLOGY MPV 8.5 fL 7.4 - 10.4 05/24 [facility] CHEM PANEL Phosphorus 3.6 mg/dL 2.5 - 4.5 05/20 [facility] HEMATOLOGY Microcyte 3+ None Seen 05/20 [facility] *NA* (05/20/14 5:20 AM) HEMATOLOGY Anisocyte 1+ None Seen 05/20 [facility] *ABN* (05/20/14 5:20 AM) HEMATOLOGY Monocytes # 0.4 K/CMM 0.0 - 0.8 05/20 [facility] HEMATOLOGY Basophils # 0.0 K/CMM 0.0 - 0.2 05/20 [facility] HEMATOLOGY Eosinophils 0.1 K/CMM 0.0 - 0.5 05/20 [facility] HEMATOLOGY Lymphocytes 2.7 K/CMM 1.0 - 5.5 05/20 [facility] HEMATOLOGY Hypochrom 1+ None Seen 05/20 [facility] (05/20/14 5:20 AM) HEMATOLOGY Basophils 0.2 % 0.0 - 1.0 05/20 [facility] HEMATOLOGY Segs-Bands # 3.6 K/CMM 1.5 - 8.1 05/20 [facility] HEMATOLOGY Segs 52.5 % 45.0 - 05/20 [facility] 75.0 HEMATOLOGY Eosinophils 2.0 % 0.0 - 4.0 05/20 [facility] HEMATOLOGY Monocytes 6.1 % 2.0 - 12.0 05/20 [facility] HEMATOLOGY Lymphocytes 39.2 % 20.0 - 05/20 [facility] 40.0 HEMATOLOGY MCHC 30.7 g/dL 32.0 - 05/20 7Result [facility] 36.0 Comment: rechecked. HEMATOLOGY MCH 20.7 pg 27.0 - 05/20 [facility] 31.0 HEMATOLOGY MCV 67.3 fL 80.0 - 05/20 [facility] 98.0 HEMATOLOGY MPV 9.0 fL 7.4 - 10.4 05/20 [facility] HEMATOLOGY RDW 21.1 % 11.5 - 05/20 [facility] 14.5 HEMATOLOGY Platelet 286 K/CMM 133 - 450 05/20 [facility] HEMATOLOGY WBC 6.8 K/CMM 3.7 - 10.4 05/20 [facility] HEMATOLOGY Hct 30.1 % 36.0 - 05/20 [facility] 48.0 HEMATOLOGY RBC 4.47 M/CMM 4.20 - 05/20 [facility] 5.40 HEMATOLOGY Hgb 9.2 g/dL 12.0 - 05/20 [facility] 16.0 HEMATOLOGY Polychrom Slight 05/17 [facility] HEMAT[facility] Target Cell Slight 05/17 [facility] HEMATOLOGY Hypochrom 1+ None Seen 05/17 [facility] (05/17/14 4:30 AM) HEMATOLOGY Plt Morph Normal 05/17 [facility] (05/17/14 4:30 AM) HEMATOLOGY Bands 0.0 % 0.0 - 11.0 05/17 [facility] HEMATOLOGY Atypical 0.0 % <=0.0 % 05/17 [facility] CHEM PANEL Globulin 3.1 g/dL 2.0 - 4.0 05/14 [facility] CHEM PANEL B/C Ratio 18 6 - 25 05/14 [facility] CHEM PANEL A/G Ratio 0.8 0.7 - 1.6 05/14 [facility] CHEM PANEL Bili Total 0.3 mg/dL 0.2 - 1.3 05/14 [facility] CHEM PANEL Alk Phos 75 unit/L 39 - 136 05/14 [facility] CHEM PANEL Total 5.6 g/dL 6.4 - 8.4 05/14 [facility] Protein CHEM PANEL ALT 17 unit/L 0 - 65 05/14 [facility] CHEM PANEL Albumin Lvl 2.5 g/dL 3.5 - 5.0 05/14 [facility] CHEM PANEL AST 20 unit/L 0 - 37 05/14 [facility] HEMATOLOGY Plt Morph Normal 05/14 [facility] (05/14/14 5:45 AM) HEMATOLOGY Sed Rate 50 mm/h 0 - 20 05/12 [facility] IMMUNOLOGY C-REACTIVE 64.3 mg/L <=2.9 mg/L 05/12 [facility] PROTEIN HEMATOLOGY Polychrom Slight 05/12 [facility] HEMATOLOGY Atypical 0.0 % <=0.0 % 05/11 [facility] Lymphs HEMATOLOGY Bands 0.0 % 0.0 - 11.0 05/11 [facility] URINE AND UA Turbidity Clear Clear 05/07 [facility]OOL (05/07/14 6:38 AM) URINE AND UA Spec Grav 1.012 <=1.030 05/07 [facility]OL URINE AND UA Leuk Est Negative Negative 05/07 [facility] (05/07/14 6:38 AM) URINE AND UA Nitrite Negative Negative 05/07 [facility] (05/07/14 6:38 AM) URINE AND UA 0.2 EU/dL 0.1 - 1.0 05/07 [facility] Urobilinogen URINE AND UA Ketones Negative Negative 05/07 [facility] *NA* (05/07/14 6:38 AM) URINE AND UA Glucose Negative Negative 05/07 [facility] (05/07/14 6:38 AM) URINE AND UA Blood Negative Negative 05/07 [facility] (05/07/14 6:38 AM) URINE AND UA Bili Negative Negative 05/07 [facility] *NA* (05/07/14 6:38 AM) URINE AND UA Color Yellow Yellow 05/07 [facility] *NA* (05/07/14 6:38 AM) URINE AND UA Protein Negative Negative 05/07 [facility] (05/07/14 6:38 AM) URINE AND UA pH 6.0 5.0 - 8.0 05/07 [facility] ST[facility]OL URINE AND UA Bacteria Rare 05/07 [facility] URINE AND UA Sq Epi None Seen Few 05/07 [facility]OOL /2013 (05/07/14 6:38 AM) URINE AND UA WBC 0-2 /HPF None Seen 05/07 [facility]OL /HPF /2013 URINE AND UA RBC 0-2 /HPF 0 - 2 05/07 [facility] SPECIAL Hgb A1C 6.9 % <=5.6 % 05/07 [facility] CHEMISTRY /2013 HEMATOLOGY PT 13.9 s 12.0 - 05/07 [facility] 14.7 HEMATOLOGY INR 1.07 0.85 - 05/07 8Interpretive Data: RECOMMENDED RANGES FOR PROTIME INR: [facility] 1.17 2.0-3.0 for most medical and surgical thromboembolic states. 2.5-3.5 for artificial heart valves and recurrent embolism. INR SHOULD BE USED ONLY FOR PATIENTS ON STABLE ANTICOAGULANT THERAPY. HEMATOLOGY PTT 24.6 s 22.9 - 05/07 9Interpretive [facility] 35.8 Data: Heparin Therapeutic Range: 57 - 92 Seconds LIPIDS VLDL 26 05/07 [facility] LIPIDS Trig 131 mg/dL <=149 05/07 [facility] mg/dL LIPIDS Chol 115 mg/dL <=199 05/07 [facility] mg/dL LIPIDS HDL 36 mg/dL >=61 mg/dL 05/07 [facility] LIPIDS CHD Risk 3.19 3.90 - 05/07 [facility] 5.80 LIPIDS LDL 53 mg/dL <=99 mg/dL 05/07 [facility] (Calculated) CHEM PANEL B/C Ratio 27 6 - 25 05/07 [facility] CHEM PANEL A/G Ratio 0.9 0.7 - 1.6 05/07 [facility] CHEM PANEL Globulin 3.0 g/dL 2.0 - 4.0 05/07 [facility] CHEM PANEL ALT 16 unit/L 0 - 65 05/07 [facility] CHEM PANEL Bili Total 0.3 mg/dL 0.2 - 1.3 05/07 [facility] CHEM PANEL AST 15 unit/L 0 - 37 05/07 [facility] /2013 CHEM PANEL Alk Phos 79 unit/L 39 - 136 05/07 [facility] CHEM PANEL Albumin Lvl 2.7 g/dL 3.5 - 5.0 05/07 [facility] CHEM PANEL Total 5.7 g/dL 6.4 - 8.4 05/07 [facility] Protein THYROID T4 Free 1.55 ng/dL 0.76 - 05/07 [facility] PANEL 1.46 /2013 THYROID TSH 4.080 0.360 - 05/07 [facility] PANEL uIU/mL 3.740 /2013 Vital Signs Vital Sign Value Date Comments Source Height 152.4 cm 12/23/2017 [facility] Weight 63.636 12/23/2017 [facility] BMI Calculated 27.4 12/23/2017 [facility] Respitory Rate 18 12/23/2017 [facility] Temperature Oral (F) 97.7 F 12/23/2017 [facility] Heart Rate 99 12/23/2017 [facility] Systolic (mm Hg) 113 12/23/2017 [facility] Diastolic (mm Hg) 76 12/23/2017 [facility] Weight 66.818 11/21/2017 [facility] BMI Calculated 28.77 11/21/2017 [facility] Height 152.4 cm 11/21/2017 [facility] Respitory Rate 20 11/21/2017 [facility] Heart Rate 93 11/21/2017 [facility] Systolic (mm Hg) 104 11/21/2017 [facility] Diastolic (mm Hg) 73 11/21/2017 [facility] Weight 63.636 11/20/2017 [facility] Systolic (mm Hg) 126 11/20/2017 [facility] Diastolic (mm Hg) 57 11/20/2017 [facility] Heart Rate 83 11/20/2017 [facility] Temperature Oral (F) 97.3 F 11/20/2017 [facility] Height 152.4 cm 11/20/2017 [facility] BMI Calculated 27.4 11/20/2017 [facility] Heart Rate 85 10/21/2017 [facility] Respitory Rate 20 10/21/2017 [facility] Systolic (mm Hg) 123 10/21/2017 [facility] Diastolic (mm Hg) 78 10/21/2017 [facility] Weight 62.273 10/21/2017 [facility] BMI Calculated 26.81 10/21/2017 [facility] Height 152.4 cm 10/21/2017 [facility] BMI Calculated 26.81 10/08/2017 [facility] Weight 62.273 10/08/2017 [facility] Height 152.4 cm 10/08/2017 [facility] Heart Rate 87 10/08/2017 [facility] Temperature Oral (F) 98.1 F 10/08/2017 [facility] Systolic (mm Hg) 134 10/08/2017 [facility] Diastolic (mm Hg) 72 10/08/2017 [facility] BMI Calculated 25.44 09/23/2017 [facility] Weight 59.091 09/23/2017 [facility] Height 152.4 cm 09/23/2017 [facility] Systolic (mm Hg) 135 09/23/2017 [facility] Diastolic (mm Hg) 72 09/23/2017 [facility] Heart Rate 82 09/23/2017 [facility] Respitory Rate 20 09/23/2017 [facility] Weight 60 08/08/2017 [facility] BMI Calculated 25.83 08/08/2017 [facility] Height 152.4 cm 08/08/2017 [facility] Heart Rate 92 08/08/2017 [facility] Temperature Oral (F) 98.4 F 08/08/2017 [facility] Systolic (mm Hg) 101 08/08/2017 [facility] Diastolic (mm Hg) 66 08/08/[facility] Temperature Oral (F) 97.6 F 08/07/2017 [facility] Systolic (mm Hg) 94 08/07/2017 [facility] Diastolic (mm Hg) 53 08/07/2017 [facility] Weight 60 08/07/2017 [facility] BMI Calculated 25.83 08/07/2017 [facility] Height 152.4 cm 08/07/2017 [facility] Weight 62.273 07/23/2017 [facility] BMI Calculated 26.78 07/23/2017 [facility] Respitory Rate 18 07/23/2017 [facility] Temperature Oral (F) 97.9 F 07/23/2017 [facility] Heart Rate 83 07/23/2017 [facility] Height 152.5 cm 07/23/2017 [facility] Systolic (mm Hg) 108 07/23/2017 [facility] Diastolic (mm Hg) 70 07/23/2017 [facility] BMI Calculated 27.4 06/26/2017 [facility] Weight 63.636 06/26/2017 [facility] Systolic (mm Hg) 122 06/26/2017 [facility] Diastolic (mm Hg) 71 06/26/2017 [facility] Respitory Rate 20 06/26/2017 [facility] Heart Rate 108 06/26/2017 [facility] Height 152.4 cm 06/26/2017 [facility] Heart Rate 89 05/23/2017 [facility] Respitory Rate 20 05/23/2017 [facility] Temperature Oral (F) 98.1 F 05/23/2017 [facility] Systolic (mm Hg) 139 05/23/2017 [facility] Diastolic (mm Hg) 89 05/23/2017 [facility] BMI Calculated 20.13 11/29/2016 [facility] Weight 63.636 11/29/2016 [facility] Height 177.8 cm 11/29/2016 [facility] Respitory Rate 18 11/29/2016 [facility] Heart Rate 89 11/29/2016 [facility] Systolic (mm Hg) 96 11/29/2016 [facility] Diastolic (mm Hg) 54 11/29/2016 [facility] Height 152.4 cm 08/08/2016 [facility] BMI Calculated 27.99 08/08/2016 [facility] Weight 65 08/08/2016 [facility] Respitory Rate 18 08/08/2016 [facility] Heart Rate 79 08/08/2016 [facility] Systolic (mm Hg) 127 08/08/2016 [facility] Diastolic (mm Hg) 78 08/08/2016 [facility] BMI Calculated 27.4 07/23/2016 [facility] Weight 63.636 07/23/2016 [facility] Height 152.4 cm 07/23/2016 [facility] Temperature Oral (F) 97.4 F 07/23/2016 [facility] Respitory Rate 16 07/23/2016 [facility] Heart Rate 80 07/23/2016 [facility] Systolic (mm Hg) 93 07/23/2016 [facility] Diastolic (mm Hg) 58 07/23/2016 [facility] Weight 63.636 07/11/2016 [facility] BMI Calculated 27.4 07/11/2016 [facility] Height 152.4 cm 07/11/2016 [facility] Heart Rate 70 07/11/2016 [facility] Respitory Rate 20 07/11/2016 [facility] Systolic (mm Hg) 126 07/11/2016 [facility] Diastolic (mm Hg) 71 07/11/2016 [facility] Height 152.4 cm 07/04/2016 [facility] BMI Calculated 24.66 07/04/2016 [facility] Weight 57.273 07/04/2016 [facility] Systolic (mm Hg) 101 07/04/2016 [facility] Diastolic (mm Hg) 68 07/04/2016 [facility] Heart Rate 76 07/04/2016 [facility] Respitory Rate 18 07/04/2016 [facility] Weight 55.455 06/07/2016 [facility] BMI Calculated 23.88 06/07/2016 [facility] Height 152.4 cm 06/07/2016 [facility] Systolic (mm Hg) 127 06/07/2016 [facility] Diastolic (mm Hg) 72 06/07/2016 [facility] Respitory Rate 18 06/07/2016 [facility] Weight 62.273 04/20/2016 [facility] Height 152.4 cm 04/20/2016 [facility] BMI Calculated 26.81 04/20/2016 [facility] BMI Calculated 25.05 02/17/2016 [facility] Weight 58.182 02/17/2016 [facility] Height 152.4 cm 02/17/2016 [facility] Respitory Rate 20 02/17/2016 [facility] Heart Rate 72 02/17/2016 [facility] Systolic (mm Hg) 130 02/17/2016 [facility] Diastolic (mm Hg) 69 02/17/2016 [facility] Height 152.4 cm 02/15/2016 [facility] BMI Calculated 26.44 02/15/2016 [facility] Weight 61.42 02/15/2016 [facility] Heart Rate 79 02/15/2016 [facility] Systolic (mm Hg) 121 02/15/2016 [facility] Diastolic (mm Hg) 69 02/15/2016 [facility] Height 152.4 cm 01/19/2016 [facility] BMI Calculated 25.25 01/19/2016 [facility] Weight 58.636 01/19/2016 [facility] Respitory Rate 20 01/19/2016 [facility] Heart Rate 73 01/19/2016 [facility] Systolic (mm Hg) 145 01/19/2016 [facility] Diastolic (mm Hg) 84 01/19/2016 [facility] Weight 59.659 01/03/2016 [facility] Height 152.4 cm 01/03/2016 [facility] BMI Calculated 25.69 01/03/2016 [facility] Heart Rate 71 01/03/2016 [facility] Respitory Rate 16 01/03/2016 [facility] Temperature Oral (F) 97.9 F 01/03/2016 [facility] Systolic (mm Hg) 147 01/03/2016 [facility] Diastolic (mm Hg) 79 01/03/2016 [facility] Weight 57.273 12/29/2015 [facility] Systolic (mm Hg) 165 12/29/2015 [facility] Diastolic (mm Hg) 86 12/29/2015 [facility] BMI Calculated 24.66 12/29/2015 [facility] Height 152.4 cm 12/29/2015 [facility] Temperature Oral (F) 97.8 F 12/29/2015 [facility] Heart Rate 75 12/29/2015 [facility] Respitory Rate 20 12/29/2015 [facility] BMI Calculated 23.51 08/23/2015 [facility] Weight 54.602 08/23/2015 [facility] Height 152.4 cm 08/23/2015 [facility] Heart Rate 69 08/23/2015 [facility] Respitory Rate 16 08/23/2015 [facility] Temperature Oral (F) 97.7 F 08/23/2015 [facility] Systolic (mm Hg) 121 08/23/2015 [facility] Diastolic (mm Hg) 74 08/23/2015 [facility] Heart Rate 77 04/26/2015 [facility] Respitory Rate 16 04/26/2015 [facility] Temperature Oral (F) 97.8 F 04/26/2015 [facility] Systolic (mm Hg) 151 04/26/2015 [facility] Diastolic (mm Hg) 86 04/26/2015 [facility] Weight 47.5 04/26/2015 [facility] BMI Calculated 20.45 04/26/2015 [facility] Height 152.4 cm 04/26/2015 [facility] Systolic (mm Hg) 77 12/22/2014 [facility] Diastolic (mm Hg) 48 12/22/2014 [facility] Respitory Rate 18 12/22/2014 [facility] Heart Rate 92 12/22/2014 [facility] Weight 52.727 12/22/2014 [facility] BMI Calculated 22.7 12/22/2014 [facility] Height 152.4 cm 12/22/2014 [facility] Systolic (mm Hg) 77 12/22/2014 [facility] Diastolic (mm Hg) 48 12/22/2014 [facility] Diastolic (mm Hg) 54 07/06/2014 [facility] Heart Rate 92 07/06/2014 [facility] Respitory Rate 18 07/06/2014 [facility] Systolic (mm Hg) 98 07/06/2014 [facility] Height 152.4 cm 07/06/2014 [facility] Weight 59.545 06/25/2014 [facility] Height 152.4 cm 06/25/2014 [facility] BMI Calculated 25.64 06/25/2014 [facility] Diastolic (mm Hg) 59 06/25/2014 [facility] Systolic (mm Hg) 91 06/25/2014 [facility] Temperature Oral (F) 98.4 F 06/25/2014 [facility] Heart Rate 92 06/25/2014 [facility] Diastolic (mm Hg) 60 06/03/2014 [facility] Heart Rate 76 06/03/2014 [facility] Respitory Rate 18 06/03/2014 [facility] Systolic (mm Hg) 113 06/03/2014 [facility] Diastolic (mm Hg) 64 06/03/2014 [facility] Heart Rate 74 06/03/2014 [facility] Respitory Rate 19 06/03/2014 [facility] Systolic (mm Hg) 115 06/03/2014 [facility] Respitory Rate 18 06/02/2014 [facility] Diastolic (mm Hg) 73 06/02/2014 [facility] Systolic (mm Hg) 141 06/02/2014 [facility] Heart Rate 72 06/02/2014 [facility] Height 152.4 cm 05/27/2014 [facility] Height 152.4 cm 05/25/2014 [facility] Height 152.4 cm 05/24/2014 [facility] Weight 60.966 05/10/2014 [facility] BMI Calculated 26.25 05/10/2014 [facility] Weight 65.455 05/07/2014 [facility] BMI Calculated 28.18 05/07/2014 [facility] BMI Calculated 28.23 05/06/2014 [facility] Weight 65.568 05/06/2014 [facility] Weight 61.364 03/22/2014 [facility] BMI Calculated 23.22 03/22/2014 [facility] Height 162.56 cm 03/22/2014 [facility] Heart Rate 81 02/01/2014 [facility] Temperature Oral (F) 96.9 F 02/01/2014 [facility] Diastolic (mm Hg) 77 02/01/2014 [facility] Systolic (mm Hg) 163 02/01/2014 [facility] Respitory Rate 16 02/01/2014 [facility] Height 152.4 cm 02/01/2014 [facility] BMI Calculated 28.88 02/01/2014 [facility] Weight 67.074 02/01/2014 [facility] Height 152.4 cm 11/02/2013 [facility] BMI Calculated 28.57 11/02/2013 [facility] Heart Rate 92 11/02/2013 [facility] Temperature Oral (F) 97.4 F 11/02/2013 [facility] Weight 66.364 11/02/2013 [facility] Diastolic (mm Hg) 74 11/02/2013 [facility] Systolic (mm Hg) 117 11/02/2013 [facility] Respitory Rate 16 11/02/2013 [facility] Encounters Location Location Encounter Encounter Reason Attending ADM DC Status Source Details Type Number For Provider Date Date Visit [facility] Outpatient [id number] FOLLOW- BISJIT 10/13 Active [facility] Center [facility] Outpatient [id number] FOLLOW- JIT 11/17 Active [facility] [id number] 10/05 10/07 [facility] Message /2013 [facility] [id number] Biswajit 11/02 11/03 [facility] Mario /2013 [facility] [id number] Biswajit 02/01 02/02 [facility] Mario /2013 [facility] Outpatient [id number] Biswajit 03/22 03/23 [facility] Mario /2013 [facility] Inpatient [id number] Eleanor 05/06 06/03 [facility] [place] [facility] Lexus /2013 [facility] Phone [id number] 06/04 06/06 [facility] Message /2013 [facility] Outpatient [id number] Roldan 06/25 06/26 [facility] [place] Barrera /2014 [facility] Outpatient [id number] Eleanor 07/06 07/07 [facility] Ablerts /2014 [facility] Outpatient [id number] Roldan 12/22 12/23 [facility] [place] Barrera /2014 [facility] Outpatient [id number] Biswanano 04/26 04/27 [facility] /2014 [facility] Advanced Heart Failure [facility] Outpt Diag [id number] Tobias Cho 07/08 07/09 [facility] Gui /2015 [facility] Outpatient [id number] Biswajit 08/22 08/23 [facility] /2015 [facility] [place] for Center Advanced Heart Failure [facility] Phone [id number] 08/24 08/26 [place] Message /2015 [facility] Heart Heart Failure Failure [facility] Phone [id number] 11/24 11/25 [place] Message /2015 [facility] Advanced Heart Heart Failure Failure [facility] Outpatient [id number] Argyrios 12/28 12/29 [facility] /2015 [facility] Outpatient [id number] Biswajoset 01/02 01/03 [facility] /2015 [facility] Advanced Heart Failure [facility] Outpatient [id number] Kayla 01/18 01/19 [facility] /2015 [facility] Phone [id number] 01/18 01/20 Fritz Message /2015 [facility] Advanced Heart Heart Failure Failure [facility] Recurring [id number] Argyrios 02/14 03/16 [facility] /2015 [facility] Outpatient [id number] Kayla 02/16 02/17 [facility]2015 [facility] Outpatient [id number] Kayla 04/20 04/21 [facility] /2015 [facility] Phone [id number] 05/01 05/03 Fritz Message /2015 [facility] Heart Failure Failure [facility] Outpatient [id number] Kayla 06/07 06/08 [facility] [place] /2015 [facility] Outpatient [id number] Yfn 07/04 07/05 [facility] [place] /2016 [facility] Outpatient [id number] Yfn 07/11 07/12 [facility] [place] [id number] Rosywajoset 07/23 07/24 [place] Mario /2016 [facility] Advanced [facility] Failure [facility] Outpatient [id number] Yfn 08/08 08/09 [facility] [place] Phone [id number] 08/14 08/16 Fritz Message /2016 [facility] Failure [facility] Phone [id number] 08/28 08/30 Fritz Message /2016 [facility] Heart Failure [facility] Phone [id number] 10/18 10/20 [place] Message /2016 [facility] Heart Failure [facility] Phone [id number] 11/01 11/03 Fritz Message /2016 [facility] Heart Failure [facility] Phone [id number] 11/19 11/21 [place] Message /2016 [facility] Heart Failure [facility] Phone [id number] 11/20 11/22 [place] Message /2016 [facility] Heart Failure [facility] Phone [id number] 11/26 11/28 Fritz Message /2016 [facility] Heart Failure Failure [facility] Outpatient [id number] Kayla 11/29 11/30 [facility] [place] /2016 [facility] Phone [id number] 05/01 05/03 [place] Message /2016 [facility] Heart Heart Failure Failure [facility] Phone [id number] 05/16 05/18 Fritz Message /2016 [facility] Heart Failure Failure [facility] Outpatient [id number] Argyrios 05/23 05/24 [facility]2016 [facility] Phone [id number] 06/03 06/05 [facility] Heart Failure [facility] Outpatient [id number] Roldan 06/26 06/27 [facility] Phone [id number] 07/15 07/17 [facility] Message Neuro y [facility] Outpatient [id number] Biswajit 07/23 07/24 [facility] Advanced Heart Failure [facility] Outpatient [id number] Biswajit 08/07 08/08 [facility] /2017 [facility] Outpatient [id number] CHAVEZ 08/08 [facility][note 2] [place] [facility] Outpatient [id number] Argyrios 08/08 08/09 [facility] Neuro y [facility] Phone [id number] 08/20 08/22 [facility] Message [facility] Heart Failure [facility] Outpatient [id number] Roldan 09/23 09/24 [facility] Outpatient [id number] Roldan 10/08 10/09 [facility] Fritz [facility] Outpatient [id number] Roldan 10/21 10/22 [facility] Outpatient [id number] Roldan 11/20 11/21 [facility] Fritz [facility] Outpatient [id number] Argyrios 11/21 11/22 [facility] Outpatient [id number] Biswajit 12/23 12/24 [facility] /2017 [facility] Advanced Heart Failure [facility] Outpatient [id number] FOLLOW- BISWAJIT Cancel [facility] TO [facility] FACILIT Y. [facility] Preadmit [id number] CHF BISWAJIT Cancel [facility] Center Procedures Procedure Code Date Perfomer Comments Source Change of [id number] 11/20/2017 [facility] suprapubic catheter-(18 fr 5cc) Change of [id number] 11/20/2017 Center for suprapubic Adv Heart catheter-(18 fr Failure 5cc) Change of [id number] 11/20/2017 [facility] catheter-(18 fr 5cc) Video urodynamic [id number] 06/25/2014 Center for study Adv Heart Failure Video urodynamic [id number] 06/25/2014 [facility] study Video urodynamic [id number] 06/25/2014 [facility] Video urodynamic [id number] 06/25/2014 [facility] study Video urodynamic [id number] 06/25/2014 [facility] study [facility] Bile duct stone [id number] Center for removal Adv Heart Failure Gallbladder 62099730 Center for excision Adv Heart Failure Hysterectomy 816886569 [facility] Knee maneuver 534787704 [facility] Stent placement [id number] [facility] Bile duct stone 966229190 [facility] removal Gallbladder 42700196 [facility] excision Hysterectomy 414822823 [facility] Knee maneuver 719230045 [facility] Stent placement [id number] [facility] Bile duct stone [id number] [facility] Gallbladder [id number] [facility] Hysterectomy 122813442 [facility] Knee maneuver [id number] [facility] Stent placement [id number] [facility] Bile duct stone 221955107 [facility] removal Gallbladder 11169255 [facility] excision Hysterectomy 393724346 [facility] Knee maneuver 906960199 [facility] Stent placement [id number] [facility] Bile duct stone [id number] [facility] removal [facility] Gallbladder [id number] [facility] excision [facility] Hysterectomy [id number] [facility] Knee maneuver [id number] [facility] Stent placement [id number] [facility]
--- OUTSIDE RECORDS SUMMARY | 2018-01-21 15:05 | XMS REPORT | Summary of Care ---
:1955 Author Organization [facility] Address [address] [place], [place] [address] Encounter HQ Stanislav_cony(FIN) [id number] Date(s): 09/23/17 - 09/23/[address] [phone] Encounter Diagnosis Neuromuscular dysfunction of bladder, unspecified (Final) - 09/26/17 Discharge Disposition: Home or Self Care Attending Physician: Roldan Barrera MD Referring Physician: Roldan Barrera MD Vital Signs Most recent to oldest [Reference Range]: 1 Height 152.4 cm (09/23/17 1:28 PM) Blood Pressure [90-140/60-90 mmHg] 135/72 mmHg (09/23/17 1:28 PM) Respiratory Rate [14-20 BRMIN] 20 BRMIN (09/23/17 1:28 PM) Peripheral Pulse Rate [60-100 bpm] 82 bpm (09/23/17 1:28 PM) Weight 59.091 kg (09/23/17 1:28 PM) Body Mass Index 25.44 m2 (09/23/17 1:28 PM) Problem List Condition Effective Dates Status Health Status Informant Coronary artery disease(Confirmed) Active Diabetes mellitus(Confirmed) Active Heart disorder(Confirmed) Active Hypertension(Confirmed) Active Hypertension(Confirmed) Active Incontinence of bowel(Confirmed) Active Incontinence of urine(Confirmed) Active Lung collapse(Confirmed) Resolved Neurogenic bladder(Confirmed) Active Pain(Confirmed) Active Psoriasis (a type of skin Active inflammation)(Confirmed) Quadriplegia(Confirmed) Active Rheumatoid arthritis(Confirmed) Active Other muscle spasm(Confirmed) Active Allergies, Adverse Reactions, Alerts Substance Reaction Severity Status penicillins Active erythromycin Active Cipro Active Medications No Known Medications Results No data available for this section Immunizations Given and Recorded Vaccine Date Status Refusal Reason influenza virus vaccine, inactivated 05/09/14 Given Procedures Procedure Date Related Diagnosis Body Site Status Change of suprapubic catheter-(18 fr 11/20/17 Completed 5cc) Video urodynamic study 06/25/14 Completed Bile duct stone removal Completed Gallbladder excision Completed Hysterectomy Completed Knee maneuver Completed Stent placement Completed Social History Social History Type Response Smoking Status Never smoker; Ready to change: No; Concerns about tobacco use in household: No; Lives with someone who smokes; Cigarette Smoking Last 365 Days No; Reg Smoking Cessation Counseling No entered on: 12/23/17 Assessment and Plan No data available for this section
--- OUTSIDE RECORDS SUMMARY | 2018-01-21 15:07 | XMS REPORT ---
:1955 [facility] Address [address] [place] [address] Care Team Providers Name Role Phone UNKNOWN, REFFERING Primary Care Provider Unavailable ISIAH BLACKMAN Unavailable Unavailable Problems This patient has no known problems. Allergies, Adverse Reactions, Alerts This patient has no known allergies or adverse reactions. Medications This patient has no known medications. Results Test Description Test Time Test Comments Text Results Atomic Results Result Comments Culture, Urine 2017-09-27 Specimen: UrineCollected: 09/24/2017 07:00 Status : 08:48:00 Final Last Updated: 09/27/2017 08:48 Isolate (Final) (Final) 09/25/17 >100,000 CFU/mL Enterobacter cloacae Amikacin <=16 Susceptible Ampicillin <=8 Resistant Ampicillin/Sulb <=8/4 Resistant Cefazolin >16 Resistant Cefepime <=4 Susceptible Cefotaxime <=2 Susceptible Ceftazidime <=1 Susceptible Ceftriaxone <=1 Susceptible Cefuroxime <=4 Resistant Ciprofloxacin <=1 Susceptible Gentamicin <=4 Susceptible Imipenem <=1 Susceptible Levofloxacin <=2 Susceptible Meropenem <=1 Susceptible Nitrofurantoin <=32 Susceptible Piperacillin/Tazo <=16 Susceptible Tobramycin <=4 Susceptible Trimethoprim/Sulfa <=2/38 Susceptible Isolate (Final) (Final) 09/25/17 60,000 CFU/mL Group D Enterococcus Isolate (Final) (Final) 09/26/17 20,000 CFU/mL Staph-coag positive 09/27/17 Methicillin Resistant Staph aureus- contact isolationrecommended Isolate Isolate Group D Enterococcus Staph-coag positive JESS (mcg/ml) Amoxicillin/Clav (AUG) >4/2 Resistant Ampicillin (AM) <=2 Susceptible >8 Resistant Ampicillin/Sulb (A/S) <=8/4 Resistant Cefazolin (CFZ) 16 Resistant Ceftriaxone (LINING LAYER) 16 Resistant Ciprofloxacin (CP) >2 Resistant >2 Resistant Gentamicin (GM) 8 Intermediate Gentamicin Syn (HLG) >500 Resistant Imipenem (IMP) 8 Resistant Levofloxacin (LEV) >4 Resistant >4 Resistant Linezolid (LNZ) 2 Susceptible 2 Susceptible Nitrofurantoin (FT) <=32 Susceptible <=32 Susceptible Oxacillin (OX1) >2 Resistant Penicillin (P) 8 Susceptible >8 Resistant Rifampin (RA) <=1 Susceptible Streptomycin Syn (HLS)>1000 Resistant Tetracycline (TE) >8 Resistant >8 Resistant Trimethoprim/Sulfa <=0.5/9.Susceptible (SXT) 5 Vancomycin (VA) 2 Susceptible 1 Susceptible Antibiotic Summary Grid: AUG AM A/S CFZ LINING LAYER CP GM HLG IMP LEV LNZ Group D S R R R S Enterococcus Staph-coag positive R R R R R R I R R S FT OX1 P RA HLS TE SXT VA Group D S S R R S Enterococcus Staph-coag positive S R R S R S S POC Glucose, Blood 2017-09-24 11:09:00 Test Item Value Reference Range Comments POC Glucose (test code=POCGLUC) 112 mg/dL 70-115 If you consider your patient critically ill, the Gui Accu-Chek InformII metershould not be used for Glucose determinations.Draw a venous Glucose and send to the Main Lab for Analysis. Urinalysis [id number] 10:12:00 Test Item Value Reference Range Comments Color (test code=COLOR) Yellow Yellow,Straw,Pl yellow Clarity (test code=CLAR) Sl Cloudy Clear Specific [place] (test code=SPGR) 1.006 1.001-1.035 pH (test code=PH) 5.0 5.0-9.0 Ketone (test code=KET) Negative mg/dL Negative Glucose (test code=GLUCUR) Negative mg/dL Negative Protein (test code=PROT) 25 mg/dL Negative Bilirubin (test code=BILI) Negative mg/dL Negative Occult Blood (test code=UDOB) Large Negative Urobilinogen (test code=UROB) 0.2 mg/dL 0.2-1.0 Nitrite (test code=NIT) Positive Negative Leuk Esterase (test code=LEUK) Large Negative Micros Exam (test code=MEXAM) Indicated Epithelial Cells (test code=EPI) 3-5 /LPF 0-30 WBC, Urine (test code=UWBC) 2-5 /HPF 0-5 RBC, Urine (test code=URBC) 3-5 /HPF 0-5 Amorph Deposit (test code=AMORD) Few /HPF Bacteria (test code=BACT) Few /HPF CBC with [id number] 09:23:00 Test Item Value Reference Range Comments WBC (test code=WBC) 9.6 K/cumm 4.4-10.5 RBC (test code=RBC) 3.97 M/cumm 3.75-5.20 Hemoglobin (test code=HGB) 10.5 gm/dL 12.2-14.8 Hematocrit (test code=HCT) 31.9 % 36.5-44.4 MCV (test code=MCV) 80.5 fL 80-100 MCH (test code=MCH) 26.4 pg 27.0-32.5 MCHC (test code=MCHC) 32.8 g/dL 32.0-37.5 RDW (test code=RDW) 22.3 % 11.5-14.5 Platelet Count (test 290 K/cumm 140-440 code=PLTCT) MPV (test code=MPV) 7.5 fL Diff Method (test code=DIFFM) Auto Neutrophil (test code=NEUT) 53.6 % 36-70 Lymphocyte (test code=LYMPH) 37.4 % 12-44 Monocyte (test code=MONO) 3.6 % 0-11 Eosinophil (test code=EOS) 5.1 % 0-7 Basophil (test code=BASO) 0.3 % 0-2 Neutro Abs (test code=ANEUT) 5.2 K/cumm 1.6-7.4 Lymph Abs (test code=ALYMPH) 3.6 K/cumm 0.5-4.6 Turner Abs (test code=AMONO) 0.3 K/cumm 0.0-1.2 Eos Abs (test code=AEOS) 0.49 K/cumm 0.00-0.74 Baso Abs (test code=ABASO) 0.0 K/cumm 0.00-0.21 RBC Morphology (test Slight Microcytosis ; Slight code=RBCMRPH) Hypochromia ; Moderate Anisocytosis Platelet Est (test Normal Platelet on Smear code=PLTEST) Comprehensive Metabolic [id number] 07:35:00 Test Item Value Reference Range Comments Sodium (test code=NA) 139 mmol/L 135-145 Potassium (test code=K) 4.5 mmol/L 3.5-5.1 Chloride (test code=CL) 98 mmol/L 98-105 Carbon Dioxide (test 27 mmol/L 22-29 code=CO2) Glucose (test code=GLU) 151 mg/dL 70-115 Blood Urea Nitrogen 6 mg/dL 8-23 (test code=BUN) Creatinine (test 0.5 mg/dL 0.5-0.9 code=CREAT) Calcium (test code=CA) 9.1 mg/dL 8.3-10.5 Prot Total (test 6.1 g/dL 6.4-8.3 code=TP) Albumin (test code=ALB) 3.6 g/dL 3.5-5.2 A/G Ratio (test 1.4 Ratio code=AGRATIO) Globulin (test 2.5 2.9-3.1 code=GLOB) Bili Total (test <0.1 mg/dL 0.1-0.9 code=TBIL) Alk Phos (test 95 U/L 35-104 code=APHOS) AST (test code=AST) 20 U/L 1-32 ALT (test code=ALT) 18 U/L 1-33 BUN/Creatinine Ratio 12.0 (test code=BCRATIO) Anion Gap (test 14 mmol/L 7-16 code=AGAP) Estimated GFR (test >60 mL/min/1.73m2 eGFR (estimated Glomerular code=GFR) Filtration Rate) is an estimated value,calculated from the patient's serum creatinine using the MDRD equation.It is NOT the patient's actual GFR. The eGFR provides a more clinicallyuseful measure of kidney disease than serum creatinine alone.This calculation takes sex and race into account, if the informationis provided. If the race is not provided, and the patient isAfrican-Polish, multiply by 1.212. If sex is not provided, and thepatient is female, multiply by 0.742. Results for patients <18 years ofage have not been validated by the MDRD study and should be interpretedwith caution.eGFR Result Interpretation:eGFR > or=60 is in the Normal RangeeGFR < 60 may mean kidney diseaseeGFR < 15 may mean kidney failureRanges recommended by the National Kidney Foundation,http://nkdep.nih .gov POC Glucose, [id number] 07:12:00 Test Item Value Reference Range Comments POC Glucose (test 138 mg/dL 70-115 If you consider your patient code=POCGLUC) critically ill, the Gui Accu-Chek InformII metershould not be used for Glucose determinations.Draw a venous Glucose and send to the Main Lab for Analysis.
--- NOTE | 2018-01-21 15:43 | RAD REPORT ---
EXAM DESCRIPTION: CT - Head Brain Wo Cont - 01/21/2018 3:28 pm CLINICAL HISTORY: Numbness 2 bilateral lower extremities COMPARISON: May 2017 TECHNIQUE: Computed axial tomography of the head was obtained. IV contrast was not requested. All CT scans are performed using dose optimization technique as appropriate and may include automated exposure control or mA/KV adjustment according to patient size. FINDINGS: An intracranial bleed is not seen . The ventricles are normal in caliber. No extra-axial fluid collection is noted. Fluid within the sinuses/ mastoids is not seen. IMPRESSION: No acute intracranial abnormality is seen. If patient's symptoms persist MRI of the bra in would be recommended.
--- NOTE | 2018-01-21 15:55 | RAD REPORT ---
EXAM DESCRIPTION: CT - C Spine Wo Con - 01/21/2018 3:28 pm CLINICAL HISTORY: Bilateral leg numbness COMPARISON: May 2017 MRI TECHNIQUE: Computed axial tomography of the cervical spine were obtained with sagittal and coronal r econstruction images generated and reviewed. All CT scans are performed using dose optimization technique as appropriate and may include automated exposure control or mA/KV adjustment according to patient size. FINDINGS: Laminectomies involve most of the cervical spine. 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 Mild to moderate central spinal stenosis is present throughout most of the cervical spine. The spinal cord appears flattened. A syrinx seen on the prior MRI is not as well depicted on the current exam. No fracture or dislocation is seen. Disc osteophyte complexes are present from C3-C7 IMPRESSION: Postsurgical changes involving the cervical spine Ossification of the posterior longitudinal ligament in combination with disc osteophyte complexes res ulting in central spinal stenosis and compression of the spinal cord. No obvious change from the prio r MRI is noted
--- NOTE | 2018-01-21 15:58 | RAD REPORT ---
EXAM DESCRIPTION: CTThoracic Spine W/o Cont01/21/2018 3:28 pm CLINICAL HISTORY: Bilateral leg numbness COMPARISON: None TECHNIQUE: Computed axial tomography of thoracic spine was obtained with coronal and sagittal recons truction. All CT scans are performed using dose optimization technique as appropriate and may include automated exposure control or mA/KV adjustment according to patient size. FINDINGS: No fracture is seen. No dislocation is noted. An obvious significant bulging/disc herniation is not seen. Mild spondylosis is present IMPRESSION: Negative for a thoracic fracture Central spinal stenosis is not seen. If the patient has clinical symptoms to suggest spinal cord/canal pathology then MRI would be recomme nded.
[2018-01-21 15:59] LABS: Absolute Lymphocytes (CBC) 4.4 K/uL (0.7-4.9); Absolute Monocytes 0.7 K/uL (0.1-1.3); Absolute Neutrophil 6.4 K/uL (1.8-8.0); Basophils % 1.2 % (0-1.3); Eosinophils % 5.2 % (0-4.4); Hematocrit 35.3 % (36.0-45.0); Lymphocytes % 35.5 % (15.3-44.8); MCH 27.8 pg (27.0-35.0); MCV 84.8 fL (80-100); MPV 8.1 fL (7.6-11.3); RBC Red Blood Cell Count 4.16 M/uL (3.86-4.86)
--- NOTE | 2018-01-21 16:01 | RAD REPORT ---
EXAM DESCRIPTION: CTSpine Lumbar Wo Con01/21/2018 3:28 pm CLINICAL HISTORY: Bilateral leg numbness COMPARISON: None TECHNIQUE: Computed axial tomography lumbar spine was obtained with coronal and sagittal reconstruct ion. All CT scans are performed using dose optimization technique as appropriate and may include automated exposure control or mA/KV adjustment according to patient size. FINDINGS: No fracture is seen. No dislocation is noted. Disc bulge with ligamentum flavum and facet hypertrophy at L4-5 results in narrowing of the thecal sa c which measures approximately 6 millimeters. Moderate narrowing of the right neural foramina is pres ent. Mild spondylosis involves remainder of the lumbar spine. IMPRESSION: Spondylosis L4-5 resulting in moderate central spinal stenosis
[2018-01-21 16:07] LABS: Protime INR 1.04
[2018-01-21 16:16] LABS: Urine Bacteria 20-50 /HPF (<20); Urine Culture Reflex Order REFLEXED; Urine Mucus 1+ /HPF (NONE SEEN); Urine RBC <5 /HPF (NONE SEEN)
[2018-01-21 16:17] LABS: Urine Blood NEGATIVE (NEG); Urine Glucose NEGATIVE (NEG); Urine Protein NEGATIVE (NEG); Urine Specific Gravity 1.005 (1.005-1.030); Urine pH 6.5 (5.0-7.0)
[2018-01-21 16:19] LABS: BUN Blood Urea Nitrogen 5 mg/dL (7-18); Bicarbonate 29 mmol/L (21-32); Creatine Phosphokinase 49 U/L (26-192); Glucose Level 110 mg/dL (74-106); Magnesium 1.7 mg/dL (1.8-2.4); Potassium 4.1 mmol/L (3.5-5.1); Sodium Level 139 mmol/L (136-145)
--- NOTE | 2018-01-21 17:17 | RAD REPORT ---
EXAM DESCRIPTION: MRI - C Spine Wo Cont- 01/21/2018 5:07 pm CLINICAL HISTORY: numbness to bilateral legs Radiculopathy. COMPARISON: C Spine Wo Cont dated 06/06/2017; Thoracic Spine W/o Cont dated 01/21/2018; C Spine Wo Con dated 01/21/2018; Thoracic Spine Wo Contr dated 01/21/2018 FINDINGS: Again noted are changes of OPLL spanning C1-3 resulting in moderate central canal narrowin g. The findings appear mildly to moderately progressive since the 06/06/2017 prior exam. Multilevel posterior laminectomy noted. Mild spondylosis is also present at C3-4 and C6-7 in the form of posterior disc bulging and endplate osteophyte complexes. Significant myelomalacia involves the cervical cord with syrinx present in the upper cervical levels, appearing unchanged since prior study. IMPRESSION: Mild to moderate progression of central canal stenosis is in the upper cervical levels r elated to OPLL since 06/06/2017. Again noted is prominent cervical cord myelomalacia with syrinx, unchanged.
--- NOTE | 2018-01-21 17:20 | RAD REPORT ---
EXAM DESCRIPTION: MRI - Thoracic Spine Wo Contr - 01/21/2018 5:08 pm CLINICAL HISTORY: numbness to bilateral legs Radiculopathy COMPARISON: Thoracic Spine W/o Cont dated 01/21/2018; Spine Lumbar Wo Con dated 01/21/2018 FINDINGS: The vertebral body heights and disc spaces are maintained. Marrow pattern of the thoracic spine is within normal limits. Mild disc bulges are present throughout the thoracic levels without significant disc herniation, idalia l stenosis or foraminal stenosis seen. No paraspinal mass or hematoma. The thoracic cord is thin. IMPRESSION: No acute thoracic spine abnormality seen. Mild thoracic spondylosis.
--- NOTE | 2018-01-21 17:23 | RAD REPORT ---
EXAM DESCRIPTION: MRI - Lumbar Spine Wo Con- 01/21/2018 5:10 pm CLINICAL HISTORY: numbness to bilateral legs Radiculopathy COMPARISON: Spine Lumbar Wo Con dated 01/21/2018 FINDINGS: Vertebral body heights are within normal limits. No aggressive marrow pattern is observed. No fracture is suspected. The conus medullaris terminates at a normal level. No thickening of the cauda equina or clumping of n erve roots seen. L1-2 level: No significant findings. L2-3 level: Minimal posterior disc bulge with facet and ligamentum flavum hypertrophy. No significant canal or foraminal stenosis. L3-4 level: Mild posterior disc bulge is present with mild to moderate facet and ligamentum flavum hy pertrophy. No significant canal or foraminal stenosis. L4-5 level: Mild posterior disc bulge is present with mild to moderate facet and ligamentum flavum hy pertrophy. Mild central canal narrowing is present. Mild narrowing the anterior inferior aspect of nazanin th exit foramina. L5-S1 level: No significant findings. IMPRESSION: No acute lumbar spine abnormality detected. Mild lower lumbar spondylosis.
--- NOTE | 2018-01-21 18:20 | EKG ---
Test Date: 2018-01-21 Test Time: 15:05:32 Rn Labor And Delivery: MARYANNE MEASUREMENT RESULTS: Intervals: Rate: 86 NC: 148 QRSD: 72 QT: 342 QTc: 409 [place]: P: 59 NC: 148 QRS: 1 T: -2 INTERPRETIVE STATEMENTS: Normal sinus rhythm Inferior infarct, age undetermined Cannot rule out Anterior infarct, age undetermined Abnormal ECG Compared to ECG 03/25/2017 13:58:52 Left ventricular hypertrophy no longer present Myocardial infarct finding still present Electronically Signed On 01-21-18 18:19:37 CDT by Austin Barrera
[2018-01-21] MEDS ORDERED: MAGNESIUM SULFATE 1 gm IVPB 1 GM/100 ML BAG IV ONE (18:33)
--- NOTE | 2018-01-21 19:01 | EDPHYS ---
Physician Documentation [facility] Name: Radha Shipman Age: 63 yrs Sex: Female : 1955 Arrival Date: 01/21/2018 Time: 14:56 Bed 5 Private MD: ED Physician Altaf Machuca HPI: 01/21 18:19 This 63 yrs old Female presents to ER via EMS with complaints of numbness to rn bilateral legs. 18:19 The patient presents to the emergency department with difficulty standing, paresthesias rn of the. Onset: The symptoms/episode began/occurred at an unknown time. Associated signs and symptoms: Pertinent positives: paresthesias, weakness. Severity of symptoms: At their worst the symptoms were moderate in the emergency department the symptoms have improved. Current symptoms: paralysis or paresis. The patient has experienced similar episodes in the past. Reports today noticed increased difficulty standing up, has had chronic spinal cord issues following spinal surgery in past, cannot walk on her own or move her legs at baseline, but daughter states able to help with standing by bearing weight, today felt would collapse if let her go, was feeling numbness to both legs, noticed this AM upon awakening, now numbness and weakness has resolved of left leg, still mild presence on right leg, No other new focal problems. . Historical: - Allergies: 15:07 Cipro IV; jl7 15:07 Erythromycin; jl7 15:07 PENICILLINS; jl7 - Home Meds: 16:07 Flexeril 10 mg Oral tab 1 tab 3 times per day [Active]; Toprol XL 25 mg Oral Tb24 jl7 [Active]; isosorbide mononitrate 30 mg Oral Tb24 1 tab once daily [Active]; Cozaar 50 mg Oral tab 1 tab 2 times per day [Active]; metformin 500 mg Oral Tb24 [Active]; Amitiza 24 mcg oral cap 1 cap 2 times per day [Active]; Cymbalta 60 mg oral cpDR 1 cap once daily [Active]; Lipitor 40 mg Oral tab 1 tab once daily [Active]; Plavix 75 mg Oral tab 1 tab once daily [Active]; methotrexate sodium 2.5 mg Oral tab 3 tabs once wkly [Active]; baclofen 20 mg Oral tab 1 tab 3 times per day [Active]; gabapentin 800 mg oral tab 1 tab 3 times per day [Active]; aspirin 81 mg Oral TbEC 1 tab once daily [Active]; promethazine 25 mg Oral tab [Active]; folic acid 800 mcg Oral tab 1 tab once daily [Active]; Vitamin D Oral [Active]; Probiotic oral oral [Active]; Cimzia 400 mg/2 mL (200 mg/mL x 2) subcutaneous sykt 1 mL every 2 wks [Active]; magnesium oxide 250 mg Oral tab [Active]; leflunomide 10 mg oral tab [Active]; zinc sulfate 220 mg Oral tab [Active]; Hemocyte-Plus oral oral [Active]; nortriptyline 25 mg Oral cap 1 cap [Active]; - PMHx: 15:07 UTI; urinary retention; self cath having bladder spasms; [place] x 3; Hypertension; Diabetes jl7 - NIDDM; cardiac stent x 9; both lungs collapsed before; - PSHx: 15:07 Cholecystectomy; Hysterectomy; Knee surgery; Heart stents; neck sx; sx removal of tail jl7 bone; Suprapubic catheter; - Immunization history:: Adult Immunizations up to date. - Social history:: Smoking status: Patient/guardian denies using tobacco, Patient/guardian denies using alcohol, street drugs. - Ebola Screening: : No symptoms or risks identified at this time. - Family history:: not pertinent. - Hospitalizations: : No recent hospitalization is reported. ROS: 18:19 Constitutional: Negative for fever, chills, and weight loss, Eyes: Negative for injury, rn pain, redness, and discharge, Neck: Negative for injury, pain, and swelling, Cardiovascular: Negative for chest pain, palpitations, and edema, Respiratory: Negative for shortness of breath, cough, wheezing, and pleuritic chest pain, Abdomen/GI: Negative for abdominal pain, nausea, vomiting, diarrhea, and constipation, MS/Extremity: Negative for injury and deformity, Skin: Negative for injury, rash, and discoloration, Neuro: + weakness and numbness bilateral lower ext Exam: 18:19 Constitutional: This is a well developed, well nourished patient who is awake, alert, rn and in no acute distress. Head/Face: Normocephalic, atraumatic. Eyes: Pupils equal round and reactive to light, extra-ocular motions intact. Lids and lashes normal. Conjunctiva and sclera are non-icteric and not injected. Cornea within normal limits. Periorbital areas with no swelling, redness, or edema. ENT: MMM Cardiovascular: Regular rate and rhythm with a normal S1 and S2. No gallops, murmurs, or rubs. Normal PMI, no JVD. No pulse deficits. Respiratory: Lungs have equal breath sounds bilaterally, clear to auscultation and percussion. No rales, rhonchi or wheezes noted. No increased work of breathing, no retractions or nasal flaring. Abdomen/GI: Soft, non-tender, with normal bowel sounds. No distension or tympany. No guarding or rebound. No evidence of tenderness throughout. Neuro: Awake and alert, GCS 15, oriented to person, place, time, and situation. Cranial nerves II-XII grossly intact. Motor strength bilateral upper extremities at baseline, cannot lift arms against gravity but can wiggle fingers. 3+/5 strength bilateral lower ext and equal, but numbness proximal right thigh. normal plantar flexion of bilateral feet and equal. No saddle anesthesia. Vital Signs: 15:02 BP 135 / 76; Pulse 88; Resp 16 S; Temp 98.7(O); Pulse Ox 97% on R/A; Pain 7/10; jl7 17:00 BP 127 / 73; Pulse 85; Resp 16; Pulse Ox 97% ; jl7 18:00 BP 156 / 80; Pulse 78; Resp 16; Pulse Ox 97% ; jl7 19:00 BP 140 / 75; Pulse 85; Resp 16 S; Pulse Ox 97% on R/A; jl7 19:40 BP 156 / 76; Pulse 86; Resp 18; Pulse Ox 96% on R/A; lp1 MDM: 14:58 Patient medically screened. rn 18:57 Data reviewed: vital signs, nurses notes, lab test result(s), EKG, radiologic studies, rn CT scan, MRI, and as a result, I will discharge patient. Counseling: I had a detailed discussion with the patient and/or guardian regarding: the historical points, exam findings, and any diagnostic results supporting the discharge/admit diagnosis, lab results, radiology results, the need for outpatient follow up, to return to the emergency department if symptoms worsen or persist or if there are any questions or concerns that arise at home. Response to treatment: the patient's symptoms have mildly improved after treatment, and as a result, I will discharge patient. Special discussion: I discussed with the patient/guardian in detail that at this point there is no indication for admission to the hospital. It is understood, however, that if the symptoms persist or worsen the patient needs to return immediately for re-evaluation. ED course: Pt with chronic spinal cord issues and worsening weakness/numbness over last year or so per and daughter, worse today, but now improved, Cervical spinal changes unchanged compared to previous MRI, lumbar disc bulge with right foraminal stenosis likely explains lower ext problems that are intermittent and why right leg is worse, has f/u with her spinal doctor in 2 days, will treat with steroids and return precautions, offered transfer for spinal evaluation but patient and family state she feels better, is now able to stand near baseline, declines transfer. . 19:01 ED course: Pt with UTI signs on exam, family and patient state that has been told is rn colonized and will "always test positive for UTI", no urinary symptoms so will not treat with abx. . 01/21 15:10 Order name: Urine Microscopic Only 01/21 15:10 Order name: Basic Metabolic Panel 01/21 15:10 Order name: CBC with Diff rn 01/21 15:10 Order name: CPK 01/21 15:10 Order name: Magnesium rn 01/21 15:10 Order name: Protime (+inr) 01/21 15:10 Order name: Ptt, Activated rn 01/21 15:10 Order name: Troponin (emerg Dept Use Only) 01/21 16:02 Order name: CBC with Automated Diff; Complete Time: 17:47 EDSD 01/21 16:03 Order name: Urine Dipstick--Ancillary (enter results) 01/21 16:08 Order name: Protime (+INR); Complete Time: 17:47 EDMS 01/21 16:08 Order name: PTT, Activated Partial Thromb; Complete Time: 17:47 EDSD 01/21 16:16 Order name: Urine Microscopic Only; Complete Time: 17:47 EDSD 01/21 16:17 Order name: Urine Dipstick-Ancillary; Complete Time: 17:47 EDSD 01/21 15:10 Order name: CT Head Brain wo Cont rn 01/21 15:12 Order name: CT Lumbar Spine Wo Con rn 01/21 15:12 Order name: Thoracic Spine WO Cont CT rn 01/21 15:12 Order name: CT C Spine rn 01/21 15:44 Order name: CT; Complete Time: 15:49 EDMS 01/21 15:55 Order name: CT; Complete Time: 17:47 EDMS 01/21 15:58 Order name: CT; Complete Time: 17:47 EDMS 01/21 16:01 Order name: CT; Complete Time: 17:47 EDMS 01/21 16:19 Order name: Basic Metabolic Panel; Complete Time: 17:47 EDMS 01/21 16:19 Order name: Creatine Phosphokinase; Complete Time: 17:47 EDMS 01/21 16:19 Order name: Magnesium; Complete Time: 17:47 EDMS 01/21 16:19 Order name: Troponin (Emerg Dept Use Only); Complete Time: 17:47 EDMS 01/21 17:17 Order name: MRI; Complete Time: 17:47 EDMS 01/21 17:20 Order name: MRI; Complete Time: 17:47 EDMS 01/21 17:24 Order name: MRI; Complete Time: 17:47 EDMS 01/21 15:10 Order name: EKG; Complete Time: 15:11 rn 01/21 15:10 Order name: Cardiac monitoring; Complete Time: 15:58 rn 01/21 15:10 Order name: EKG - Nurse/Tech; Complete Time: 15:58 rn 07 15:10 Order name: IV Saline Lock; Complete Time: 15:58 rn 01/21 15:10 Order name: Labs collected and sent; Complete Time: 15:57 rn 01/21 15:10 Order name: NPO; Complete Time: 15:57 rn 01/21 15:10 Order name: O2 Per Protocol; Complete Time: 15:57 rn 01/21 15:10 Order name: O2 Sat Monitoring; Complete Time: 15:57 rn 01/21 15:10 Order name: Urine Dipstick-Ancillary (obtain specimen); Complete Time: 15:57 rn Administered Medications: 18:30 Drug: Magnesium Sulfate 1 grams Route: IVPB; Infused Over: 1 hrs; Site: right wrist; jl7 19:43 Follow up: IV Status: Completed infusion lp1 19:13 Drug: Decadron - Dexamethasone 10 mg Route: IVP; Site: right hand; lp1 19:44 Follow up: Response: No adverse reaction lp1 Disposition: 01/21/18 19:01 Discharged to Home. Impression: Paresthesia of skin, Weakness, Radiculopathy, lumbosacral region. - Condition is Stable. - Discharge Instructions: Lumbosacral Radiculopathy, Paresthesia, Weakness. - Prescriptions for Medrol (Martin) 4 mg Oral Tablets, Dose Pack - take 1 tablet by ORAL route as directed - follow package instructions; 1 packet. - Medication Reconciliation Form, Thank You Letter, Antibiotic Education, Prescription Opioid Use form. - Follow up: Private Physician; When: 2 - 3 days; Reason: Recheck today's complaints, Re-evaluation by your physician. - Problem is new. - Symptoms have improved. Signatures: Dispatcher [employer] EDMS Altaf Machuca MD MD rn Pena, Laura RN RN lp1 Lelo Pacheco RN RN jl7 Corrections: (The following items were deleted from the chart) 19:01 19:01 01/21/2018 19:01 Discharged to Home. Impression: Paresthesia of skin; Weakness. rn Condition is Stable. Forms are Medication Reconciliation Form, Thank You Letter, Antibiotic Education, Prescription Opioid Use. Follow up: Private Physician; When: 2 - 3 days; Reason: Recheck today's complaints, Re-evaluation by your physician. Problem is new. Symptoms have improved. rn 19:43 19:01 01/21/2018 19:01 Discharged to Home. Impression: Paresthesia of skin; Weakness; lp1 Radiculopathy, lumbosacral region. Condition is Stable. Forms are Medication Reconciliation Form, Thank You Letter, Antibiotic Education, Prescription Opioid Use. Follow up: Private Physician; When: 2 - 3 days; Reason: Recheck today's complaints, Re-evaluation by your physician. Problem is new. Symptoms have improved. rn
--- NOTE | 2018-01-21 19:01 | ER ---
Nurse's Notes [facility] Name: Radha Shipman Age: 63 yrs Sex: Female : 1955 Arrival Date: 01/21/2018 Time: 14:56 Bed 5 Private MD: Diagnosis: Paresthesia of skin;Weakness;Radiculopathy, lumbosacral region Presentation: 01/21 14:56 Presenting complaint: EMS states: Pt woke up at approx 1100 today and reported to ss caregiver that she was experiencing numbness to bilateral lower extremities. Pt reports that some sensation has returned to L leg. Pt has a history of an "old neck injury" four years ago. Transition of care: patient was not received from another setting of care. Onset of symptoms was January 21, 2018. Risk Assessment: Do you want to hurt yourself or someone else? Patient reports no desire to harm self or others. Initial Sepsis Screen: Does the patient meet any 2 criteria? No. Patient's initial sepsis screen is negative. Does the patient have a suspected source of infection? No. Patient's initial sepsis screen is negative. Care prior to arrival: None. 14:56 Method Of Arrival: EMS: [facility] 14:56 Acuity: JULISSA 3 Triage Assessment: 15:07 General: Appears in no apparent distress. uncomfortable, Behavior is calm, cooperative, jl7 appropriate for age. Pain: Complains of pain in neck and bilateral shoulders Pain currently is 7 out of 10 on a pain scale. Pain began years ago. Is continuous. EENT: No signs and/or symptoms were reported regarding the EENT system. Neuro: Level of Consciousness is awake, alert, obeys commands, Oriented to person, place, time, situation, Speech is normal, Facial symmetry appears normal. Cardiovascular: Patient's skin is warm and dry. Respiratory: Airway is patent Respiratory effort is even, unlabored, Respiratory pattern is regular, symmetrical. GI: No signs and/or symptoms were reported involving the gastrointestinal system. : [place] in place. Derm: Skin is pink, warm \\T\\ dry. Historical: - Allergies: 15:07 Cipro IV; jl7 15:07 Erythromycin; jl7 15:07 PENICILLINS; jl7 - Home Meds: 16:07 Flexeril 10 mg Oral tab 1 tab 3 times per day [Active]; Toprol XL 25 mg Oral Tb24 jl7 [Active]; isosorbide mononitrate 30 mg Oral Tb24 1 tab once daily [Active]; Cozaar 50 mg Oral tab 1 tab 2 times per day [Active]; metformin 500 mg Oral Tb24 [Active]; Amitiza 24 mcg oral cap 1 cap 2 times per day [Active]; Cymbalta 60 mg oral cpDR 1 cap once daily [Active]; Lipitor 40 mg Oral tab 1 tab once daily [Active]; Plavix 75 mg Oral tab 1 tab once daily [Active]; methotrexate sodium 2.5 mg Oral tab 3 tabs once wkly [Active]; baclofen 20 mg Oral tab 1 tab 3 times per day [Active]; gabapentin 800 mg oral tab 1 tab 3 times per day [Active]; aspirin 81 mg Oral TbEC 1 tab once daily [Active]; promethazine 25 mg Oral tab [Active]; folic acid 800 mcg Oral tab 1 tab once daily [Active]; Vitamin D Oral [Active]; Probiotic oral oral [Active]; Cimzia 400 mg/2 mL (200 mg/mL x 2) subcutaneous sykt 1 mL every 2 wks [Active]; magnesium oxide 250 mg Oral tab [Active]; leflunomide 10 mg oral tab [Active]; zinc sulfate 220 mg Oral tab [Active]; Hemocyte-Plus oral oral [Active]; nortriptyline 25 mg Oral cap 1 cap [Active]; - PMHx: 15:07 UTI; urinary retention; self cath having bladder spasms; [place] x 3; Hypertension; Diabetes jl7 - NIDDM; cardiac stent x 9; both lungs collapsed before; - PSHx: 15:07 Cholecystectomy; Hysterectomy; Knee surgery; Heart stents; neck sx; sx removal of tail jl7 bone; Suprapubic catheter; - Immunization history:: Adult Immunizations up to date. - Social history:: Smoking status: Patient/guardian denies using tobacco, Patient/guardian denies using alcohol, street drugs. - Ebola Screening: : No symptoms or risks identified at this time. - Family history:: not pertinent. - Hospitalizations: : No recent hospitalization is reported. Screenin:27 Abuse screen: Denies threats or abuse. Denies injuries from another. Nutritional jl7 screening: No deficits noted. Tuberculosis screening: No symptoms or risk factors identified. Fall Risk No fall in past 12 months (0 pts). Secondary diagnosis (15 points) impaired mobility, IV access (20 points). Ambulatory Aid- Crutches/Cane/Walker (15 pts). Gait- Impaired (20 pts.). Mental Status- Oriented to own ability (0 pts). Total Kerr Fall Scale indicates High Risk Score (45 or more points). Fall prevention measures have been instituted. Side Rails Up X 2 Placed Close to Nursing Station Frequent Obs/Assessments Occuring Family Present and informed to notify staff if the need to leave the bedside As available patient and family educated on Fall Prevention Program and Strategies. Assessment: 15:00 General: See triage assessment. jl7 16:02 Reassessment: No changes from previously documented assessment. Patient and/or family jl7 updated on plan of care and expected duration. Pain level reassessed. Patient is alert, oriented x 3, equal unlabored respirations, skin warm/dry/pink. 17:30 Reassessment: No changes from previously documented assessment. Patient and/or family jl7 updated on plan of care and expected duration. Pain level reassessed. Patient is alert, oriented x 3, equal unlabored respirations, skin warm/dry/pink. 18:30 Reassessment: Patient and/or family updated on plan of care and expected duration. Pain jl7 level reassessed. Patient is alert, oriented x 3, equal unlabored respirations, skin warm/dry/pink. 19:07 Reassessment: Pt will be discharged once Magnesium infusion is complete. jl7 19:41 Reassessment: Patient appears in no apparent distress at this time. Patient is alert, lp1 oriented x 3, equal unlabored respirations, skin warm/dry/pink. Patient states feeling better. Vital Signs: 15:02 BP 135 / 76; Pulse 88; Resp 16 S; Temp 98.7(O); Pulse Ox 97% on R/A; Pain 7/10; jl7 17:00 BP 127 / 73; Pulse 85; Resp 16; Pulse Ox 97% ; jl7 18:00 BP 156 / 80; Pulse 78; Resp 16; Pulse Ox 97% ; jl7 19:00 BP 140 / 75; Pulse 85; Resp 16 S; Pulse Ox 97% on R/A; jl7 19:40 BP 156 / 76; Pulse 86; Resp 18; Pulse Ox 96% on R/A; lp1 ED Course: 14:56 Patient arrived in ED. ss 14:58 Altaf Machuca MD is Attending Physician. rn 15:00 Triage completed. ss 15:02 Lelo Pacheco RN is Primary Nurse. jl7 15:02 Arm band placed on right wrist. jl7 15:[address] vm2 15:27 Patient has correct armband on for positive identification. Placed in gown. Bed in low jl7 position. Call light in reach. Side rails up X 1. satellite project site monitor on. Pulse ox on. NIBP on. Warm blanket given. 15:27 EKG done, by geospatial technologist. reviewed by Altaf Machuca MD. tc 15:58 CT C Spine Sent. jl7 15:58 Thoracic Spine WO Cont CT Sent. jl7 15:58 CT Lumbar Spine Wo Con Sent. jl7 15:58 CT Head Brain wo Cont Sent. jl7 16:05 Patient moved to MRI via stretcher. em2 17:21 MRI completed. Patient tolerated well. Patient moved back from MRI. em2 18:25 Troponin (emerg Dept Use Only) Sent. jl7 19:31 Primary Nurse role handed off by Lelo Pacheco RN rg2 19:39 Alyssa Lopez, SUSAN is Primary Nurse. lp1 19:41 No provider procedures requiring assistance completed. IV discontinued, No lp1 redness/swelling at site. Pressure dressing applied. Administered Medications: 18:30 Drug: Magnesium Sulfate 1 grams Route: IVPB; Infused Over: 1 hrs; Site: right wrist; jl7 19:43 Follow up: IV Status: Completed infusion lp1 19:13 Drug: Decadron - Dexamethasone 10 mg Route: IVP; Site: right hand; lp1 19:44 Follow up: Response: No adverse reaction lp1 Outcome: 19:01 Discharge ordered by . rn 19:41 Discharged to home via wheelchair, with family. lp1 19:41 Condition: good 19:41 Discharge instructions given to patient, family, Instructed on discharge instructions, follow up and referral plans. medication usage, Demonstrated understanding of instructions, follow-up care, medications, Prescriptions given X 1. 19:43 Patient left the ED. lp1 Addendum: 01/26/2018 07:39 Addendum: Culture Results: Positive urine culture. No further action required. Other: h b Per Dr. Machuca, pt was asymptomatic. no action needed. Signatures: Snehal Contreras rg2 Altaf Machuca MD MD rn Smirch, Shelby, RN RN Alyssa Lopez RN RN 1 Cecil Palacios [facility] Maria Teresa Goins, summer child caregiver EKG Ttc Bonnie Man RN RN Lelo Pacheco RN RN 7 Merle [facility]
[2018-01-21] MEDS ORDERED: DEXAMETHASONE 10 MG/ML VIAL ONE (19:11)
[2018-01-21 19:46] VITALS: TEMP 98.7
[2018-01-21 19:51] VITALS: BP 156/76; O2SAT 96
== END 2018-01-21 19:43 | disposition home or self-care (01) ==
LOC: ER 14:53
DX: M54.17 Radiculopathy, lumbosacral region (principal); R53.1 Weakness; I10 Essential (primary) hypertension; E11.9 Type 2 diabetes mellitus without complications; Z79.01 Long term (current) use of anticoagulants; Z79.82 Long term (current) use of aspirin; Z88.0 Allergy status to penicillin; Z88.1 Allergy status to other antibiotic agents; Z88.3 Allergy status to other anti-infective agents; Z95.818 Presence of other cardiac implants and grafts
CPT/HCPCS: 36415; 70450; 72125; 72128; 72131; 72141; 72146; 72148; 80048; 82550; 83735; 84484; 85025; 85610; 85730; 87086; 87088; 93005; J1100; J3475; 81003; 81015; 87077; 87186; 96365; 96375; 99285

== ENCOUNTER 2018-07-10 12:36 | Inpatient (IN) | payer OTHER ==
--- OUTSIDE RECORDS SUMMARY | 2018-07-10 12:57 | XMS REPORT | Continuity of Care Document ---
:1955 Author Organization Interface Problems Problem Status Onset Classification Date Comments Source Date Reported FOLLOW UP Active 11/22/19 [facility] [address] [place] [address] 4 MONTH FOLLOW UP Active 11/07/19 [facility],[address] NEUROGENIC BLADDER Active 10/22/19 [facility] 18 POST OP FOLLOW UP Active 10/09/19 [facility] WITH INITIAL SP 18 FIGUEROA Neuromuscular 09/28/19 01/30/2018 [facility], dysfunction of [address] [place] [address] bladder, [facility] unspecified Center Atherosclerotic 08/13/19 11/13/2017 [facility] heart disease of [address] [place] [address] coronary [place] artery without angina pectoris CAD/ CHEST PAIN Active 07/24/[address] 4 MONTHS Active 07/23/[address] G82.52 - Active 05/31/20 [facility] QUADRIPLEGIA, 17 [facility] C1-C4 INCOMPLETE Hypokalemia Active 03/26/20 Finding 06/07/[address] [facility] Hyponatremia Active 03/26/20 Finding 06/07/[address] [facility] [facility] UTI Active 03/26/20 Finding 06/07/[address] [facility] [facility] Coronary disease Active 03/26/20 Finding 06/07/[address] [facility] [facility] Depression Active 03/26/20 Finding 06/07/[address] [facility] [facility] Hyperlipidemia Active 03/26/20 Finding 06/07/[address] [facility] [facility] Myopathy Active 03/26/20 Finding 06/07/[address] [facility] [facility] Psoriasis Active 03/26/20 Finding 06/07/[address] [facility] [facility] Obstructive Active 03/26/20 Finding 06/07/[address] uropathy [facility] Acute metabolic Active 03/26/20 Finding 06/07/[address] [facility] encephalopathy [facility] Urinary tract Active 03/26/20 Finding 06/07/[address] [facility] infection [facility] F/U Active 10/20/19 [facility] 17 10CC Active 10/04/19 [facility] 17 2 MONTH FU Active 08/08/19 [facility] 17 10 ML Active 07/04/19 [facility] 17 EVAL Active 06/07/20 [facility] 16 PHENOL Active 01/19/20 [facility] 16 1500 UNITS Active 01/19/20 [facility] 16 6 MONTH FOLLOW UP Active 01/03/20 [place] [address] [facility] FOLLOW UP-3 MONTHS Active 08/23/[address] M50.02 - CERVICAL Active 06/29/19 [facility] DISC DISORDER WITH [address] [facility] NEUROGENIC BLADDER Active 06/25/19 [facility] 6 MONTH EVALUATION 15 DC F/U Active 06/01/20 [facility] 14 QUADRAPLEGIA Active 05/03/20 [facility] 14 CHRONIC NECK PAIN Active 05/03/20 [facility] 14 NEUROGENIC Active 04/28/20 [facility] BLADDER/RETENTION 14 CAD Active 02/10/20 [place] [address] [facility] CAD/SP PCI PRE- Active 02/02/20 [facility] 14 Medical CLEARANCE Center CHF Active 07/08/19 [place] [address] [facility] Center FOLLOW-UP NEW TO Active 11/18/19 [facility] FACILITY. 13 Medical Center MANUAL WHEELCHAIR Active 06/17/19 [facility] EVAL 01 Hypocalcemia Active Finding 06/07/2017 DARREN Rivas - Diandrat Attacks of Active Finding 06/07/2017 DARREN StLupe weakness Deepti - Diandrat Dizziness Active Finding 06/07/2017 DARREN Manning Hypertension Active Problem 12/26/2017 Jerzy Santacruz [facility] Hypertension Active Problem 11/28/2017 Jerzy Santacruz [facility] Coronary artery Active Problem 01/30/2018 [facility], [facility], [facility] Diabetes mellitus Active Problem 01/30/2018 [facility] for Adv Heart Failure, [facility] Heart disorder Active Problem 01/30/2018 [facility] for Adv Heart Failure, [facility] Hypertension Active Problem 01/30/2018 Jerzy Santacruz H [facility] Incontinence of Active Problem 01/30/2018 [facility] bowel for Adv Heart Failure, [facility] Incontinence of Active Problem 01/30/2018 [facility] urine for Adv Heart Failure, [facility] Lung collapse Resolved Problem 01/30/2018 [facility], [facility] Neurogenic bladder Active Problem 01/30/2018 [facility], [facility] Neuro Pain Active Problem 01/30/2018 [facility], [facility] Psoriasis (<span Active Problem 01/30/2018 Center ID="[id number]">C for Adv onfirmed</span>) Heart Failure, [facility] Quadriplegia Active Problem 01/30/2018 [facility], [facility] Rheumatoid Active Problem 01/30/2018 [facility] arthritis for Adv Heart Failure, [facility] Diabetes mellitus Active Problem 12/26/2017 [facility] for Adv Heart Failure,[facility] Heart disorder Active Problem 12/26/2017 [facility] Incontinence of Active Problem 12/26/2017 [facility] bowel for Adv Heart Failure,[facility] Incontinence of Active Problem 12/26/2017 [facility] urine for Adv Heart Failure,[facility] Lung collapse Resolved Problem 12/26/2017 [facility] for Adv Heart Failure,[facility] Pain Active Problem 12/26/2017 [facility] for Adv Heart Failure,[facility] Psoriasis (<span Active Problem 12/26/2017 Center ID="[id number]">C for Adv onfirmed</span>) Heart Failure,[facility] Quadriplegia Active Problem 12/26/2017 [facility] for Adv Heart Failure,[facility] Rheumatoid Active Problem 12/26/2017 [facility] arthritis for Adv Heart Failure,[facility] Other muscle spasm Active Problem 01/30/2018 [facility] for Adv Heart Failure, [facility] Other muscle spasm Active Problem 12/26/2017 [facility] for Adv Heart Failure,[facility] Chest pain, [facility]13[facility]2017 [facility] Hypertension Active Problem 11/14/2017 Jerzy Santacruz [facility] Neuro Essential 10/29/2017 [facility] hypertension Medical Center Hyperlipidemia, 10/29/2017 [facility] unspecified Medical Center Spinal stenosis, 10/29/2017 [facility] cervical region [facility] Center Type 2 diabetes 10/29/2017 [facility] mellitus without Medical complications Center ROUTINE MEDICAL Active [facility] QUADRPLG C1-C4, Active [facility] INCOMPLT CRNRY ATHRSCL Active [facility] PRE-OP EXAM NOS Active [facility] LATE EFF SPINAL Active [facility] CORD INJ FOLLOW-UP EXAM NOS [facility] Active [facility] NOT AVAILABLE IN Medical HOME Center PARAPLEGIA, Active [facility] UNSPECIFIED QUADRIPLEGIA, Active [facility] UNSPECIFIED ENCNTR FOR GENERAL Active [facility] ADULT MEDICAL EXAM Medical W/ Center OTHER MUSCLE SPASM Active [facility] OTHER ABNORMAL Active [facility] INVOLUNTARY MOVEMENTS CRAMP AND SPASM Active [facility] ENCNTR FOR F/U Active [facility] EXAM AFT TRTMT FOR COND O OTHER CHRONIC PAIN Active [facility] Medications Medication Details Route Status Patient Ordering Order Source Instructions Provider Date atorvastatin 40 mg 40 mg=1 tab, Active 12/23[facility] oral tablet PO, Bedtime, 2018 Medical # 90 tab, 3 Center Refill(s) leflunomide 10 mg See Active 12/23[facility] oral tablet Instructions, 2018 Medical 1 tab PO Q Center Saturday and Saturday, 0 Refill(s) Centratex 1 cap, PO, Active 11[facility] qWeek, 0 2018 Refill(s) nortriptyline 25 25 mg=1 cap, Active 11/21[facility] mg oral capsule PO, Bedtime, 2018 start with 1 tab nightly for 1 week, then increase to twice daily if needed, # 30 cap, 1 Refill(s), Pharmacy: [facility] [id number] Zinc-220 oral 220 mg=1 cap, Active 11/21[facility] capsule PO, Daily, 0 2017 Refill(s) sodium chloride 500 mL, Inactive 10/21[facility] Route: IRRIG, 2018 Irrigation Site: Bladder, "For Irrigation Only", Start date: 10/21/17 13:39:00 CDT, Stop date: 10/21/17 13:39:00 CDTNotes: For irrigation only. gabapentin 400 MG See Active 09/27[facility] Oral Capsule Instructions, 2018 # 540 unknown unit, Refill(s) 1, TAKE 2 CAPSULES BY MOUTH THREE TIMES DAILY, Pharmacy: [facility] [id number] clopidogrel 75 MG 75 mg=1 tab, Active Center Oral Tablet PO, Daily, # 2018 for Adv [Plavix] 90 tab, 3 Heart Refill(s), Failure Pharmacy: [facility] [id number], PLEASE FAX ALL FUTURE REFILL REQUESTS TO: [phone]. magnesium oxide 600 mg=1 cap, Active [place] 600 mg oral PO, Daily, 0 2018 Medical capsule Refill(s) [place] Diclofenac Sodium TOP, BID, 0 Active [place] 20 MG/ML Topical Refill(s) 2018 Medical Solution [place] Fish Oil oral =1 cap, PO, Active [place] capsule Daily, # 100 2018 Medical cap, 0 Center Refill(s) gabapentin 800 MG 800 mg=1 tab, No Longer [facility] Oral Tablet PO, TID, # Active 2018 270 tab, 0 Refill(s), Pharmacy: [facility] [id number] gabapentin 400 MG 800 mg=2 cap, No Longer [facility] Oral Capsule PO, TID, # Active 2018 540 cap, 0 Refill(s), Pharmacy: [facility] [id number] Gentamicin Inj Q8H Active [place] 06/07/ [facility] losartan 50 mg 100 mg=2 tab, Active 06/03/ Center oral tablet PO, Daily, # 2017 for Adv 60 tab, 2 Heart Refill(s), Failure Pharmacy: [facility] [id number], PLEASE FAX ALL FUTURE REFILL REQUESTS TO: [phone] baclofen 20 mg 20 mg=1 tab, Active [facility] oral tablet PO, TID, # 2017 273 tab, 4 Refill(s), Pharmacy: [facility] [address] cephalexin 500 mg 500 mg=1 tab, Active 05/23[facility] oral tablet PO, Daily, 0 2016 Refill(s) 24 HR Metoprolol 25 mg=1 tab, Active [facility] Tartrate 25 MG PO, BID, # 2017 for Adv Extended Release 180 tab, 3 Heart Tablet [Toprol] Refill(s), Failure Pharmacy: [facility] [id number] 24 HR Metoprolol 25 mg=1 tab, Active [facility] Tartrate 25 MG PO, BID, # 2017 for Adv Extended Release 180 tab, 3 Heart Tablet [Toprol] Refill(s), Failure Pharmacy: [facility] [address] [facility] Cholecalciferol DAILY Active [facility]. (Vitamin D3) 2017 [facility] Duloxetine Hcl DAILY Active [facility]. 2016 [facility] Nitroglycerin Q5M PRN For Active [facility]. Chest Pain 2017 [facility] Potassium DAILY Active [facility] 2016 [facility] Magnesium Oxide TWICE DAILY Active St. 2017 [facility] cyclobenzaprine 10 10 mg=1 tab, Active [facility] mg oral tablet PO, TID, # 90 2017 tab, 5 Refill(s), Pharmacy: [facility] [id number] losartan 50 mg 100 mg=2 tab, Active 11/26[facility] oral tablet PO, Daily, # 2017 for Adv 60 tab, 5 Heart Refill(s), Failure Pharmacy: [facility] [id number], PLEASE FAX ALL FUTURE REFILL REQUESTS TO: [phone] atorvastatin 80 mg 80 mg=1 tab, Active 11/19[facility] oral tablet PO, Daily, X 2017 for Adv 90 day, # 90 Heart tab, 3 Failure Refill(s), Pharmacy: [facility] [id number] 24 HR Isosorbide 30 mg=1 tab, Active 11/02[facility] Center Mononitrate 30 MG PO, QAM, # 90 2017 for Adv Extended Release tab, 3 Heart Tablet [Imdur] Refill(s), Failure [facility] [address] losartan 50 mg 100 mg=2 tab, Active 10/18[facility] oral tablet PO, Daily, # 2017 for Adv 60 tab, 5 Heart Refill(s), Failure Pharmacy: [facility] [id number], PLEASE FAX ALL FUTURE REFILL REQUESTS TO: [phone] Nitroglycerin 0.4 0.4 mg=1 tab, Active Center MG Sublingual SL, Q5Min, 2017 for Adv Tablet PRN Chest Heart pain, Give up Failure to 3 doses. Call 911 if pain persists., # 100 tab, 1 Refill(s), [facility] [address], PLEASE FAX ALL FUTURE REFILL REQUESTS TO: [phone]. clopidogrel 75 MG 75 mg=1 tab, Active Center Oral Tablet PO, Daily, # 2017 for Adv [Plavix] 90 tab, 3 Heart Refill(s), Failure Pharmacy: [facility] [id number], PLEASE FAX ALL FUTURE REFILL REQUESTS TO: [phone]. tramadol 50 mg=1 tab, Active [facility] hydrochloride 50 PO, BID, PRN 2017 MG Oral Tablet Pain Score 7-10, X 30 day, # 60 tab, 0 Refill(s) Nitroglycerin 0.4 0.4 mg=1 tab, Active [place] MG Sublingual SL, Q5Min, 2017 Medical Tablet [Nitrostat] PRN Chest Center Pain, # 100 tab, 0 Refill(s), Pharmacy: [facility] [address] Magnesium Oxide DAILY Active [facility] . 2017 [facility] Cimzia SEE COMMENT Active . 2017 [facility] Gabapentin THREE TIMES A Active . DAY 2017 [facility] Baclofen THREE TIMES A Active . DAY 2017 [facility] Losartan Potassium TWICE DAILY Active . 2017 [facility] Methotrexate EVERY 7 DAYS Active . 2017 [facility] Rhame-[address] Acids 2017 [facility] Promethazine Hcl FOUR TIMES Active St. DAILY PRN For 2017 [facility] Metoprolol DAILY Active St. Succinate 2017 [facility] Leflunomide DAILY Active St. 2017 [facility] lidocaine 1% 10 mL, Route: Inactive [facility] preservative-free intra-ARTICUL 2017 injectable [place], Dosing solution Weight 57.273, kg, ONCE, Start date: 07/11/16 12:43:00 TOLL LINEMAN, Stop date: 07/11/16 12:43:00 TOLL LINEMAN losartan 50 mg 100 mg=2 tab, Active [place] oral tablet PO, Daily, 2017 Medical Reminder: Center Follow-up appointment with Dr. Tang07/23/16 @ 11:20 A.M., # 60 tab, 1 Refill(s), Pharmacy: [facility] [address] cyclobenzaprine 10 5 mg=0.5 tab, Active [facility] mg oral tablet PO, TID, PRN 2016 for spasms, Start taking 0.5 mg TID x 1 week then increase it to 10 mg TID, X 30 day, # 45 tab, 4 Refill(s), Pharmacy: [facility] [id number] gabapentin 800 MG 800 mg=1 tab, Active [facility] Oral Tablet PO, TID, # 90 2016 tab, 3 Refill(s), Pharmacy: [facility] [id number] 24 HR Metoprolol 25 mg=1 tab, Active [facility] Tartrate 25 MG PO, BID, # 2016 for Adv Extended Release 180 tab, 3 Heart Tablet [Toprol] Refill(s), Failure Pharmacy: [facility] [id number] phenol 6% AQ in 15 mL, Route: Inactive [facility] water for NERVE BLOCK, 2016 injection Dosing Weight 58.636, kg, ONCALL, Start date: 02/17/16 14:00:00 CDT, Duration: 30 day, Stop date: 03/18/16 13:59:00 CDT Losartan Potassium 100 mg=2 tab, Active Center 50 MG Oral Tablet PO, Daily, # 2016 for Adv [Cozaar] 60 tab, 4 Heart Refill(s), Failure Pharmacy: [facility] [id number] tizanidine 2 mg 4 mg=2 tab, Active [facility] oral tablet PO, Q8H, # 2016 180 tab, 2 Refill(s), Pharmacy: [facility] [address] certolizumab pegol See Active [facility] 200 MG/ML Instructions, 2016 Injectable SUB-Q q4wk, 0 Solution [Cimzia] Refill(s) atorvastatin 80 mg See Active [facility] oral tablet Instructions, 2016 # 30 tab, TAKE 1 TABLET BY MOUTH AT BEDTIME., Pharmacy: [facility] [id number] 24 HR Metoprolol 25 mg=1 tab, Active [place] Tartrate 25 MG PO, BID, 0 2016 Medical Extended Release Refill(s) [place] Tablet [Toprol] baclofen 10 mg 10 mg=1 tab, Active [facility] oral tablet PO, QID, 0 2016 Medical Refill(s) [place] certolizumab pegol See Active [place] 200 MG/ML Instructions, 2016 Medical Injectable 200 mg SUB-Q Center Solution [Cimzia] twice a month, 0 Refill(s) methotrexate 2.5 2.5 mg=1 tab, Active [place] mg oral tablet PO, TID, 0 2016 Medical Refill(s) Center Probiotic Formula 1 cap, PO, Active [place] Daily, 0 2016 Medical Refill(s) [place] duloxetine 60 MG 60 mg=1 cap, Active [facility] Enteric Coated PO, Daily, # 2016 Medical Capsule [Cymbalta] 30 cap, 0 Center Refill(s) lubiprostone 0.024 24 Active [facility] MG Oral Capsule microgram=1 2016 Medical [Amitiza] cap, PO, BID, Center # 60 cap, 0 Refill(s) D3 1000 1,000 Active [facility] IntlUnit, PO, 2016 Medical Daily, 0 Center Refill(s) Metformin 500 mg=1 tab, Active [place] hydrochloride 500 PO, TID, 0 2016 Medical MG Oral Tablet Refill(s) [place] promethazine 25 mg 25 mg=1 tab, Active [place] oral tablet PO, PRN, 0 2016 Medical Refill(s) Center gabapentin 800 MG 800 mg=1 tab, Active [facility] Oral Tablet PO, TID, # 90 2016 tab, 3 Refill(s) gabapentin 800 MG 800 mg=1 tab, Inactive [facility] Oral Tablet PO, TID, # 90 2016 tab, 3 Refill(s) atorvastatin 80 MG 80 mg=1 tab, Active Center Oral Tablet PO, Bedtime, 2016 for Adv [Lipitor] # 90 tab, 3 Heart Refill(s), [facility], PLEASE FAX ALL FUTURE REFILL REQUESTS TO: [phone]. 24 HR Isosorbide 30 mg=1 tab, Active [place] Mononitrate 30 MG PO, QAM, # 90 2016 Medical Extended Release tab, 3 Center Tablet [Imdur] Refill(s), [facility] [address] clopidogrel 75 MG 75 mg=1 tab, Active Center Oral Tablet PO, Daily, # 2016 for Adv [Plavix] 90 tab, 3 Heart Refill(s), Failure [facility], PLEASE FAX ALL FUTURE REFILL REQUESTS TO: [phone]. baclofen 10 mg 10 mg=1 tab, Active [facility] oral tablet PO, Q8H-05, # 2016 Medical 90 tab, 0 Center Refill(s), Pharmacy: [facility] [address] Losartan Potassium 100 mg=2 tab, Active [place] 50 MG Oral Tablet PO, Daily, # 2016 Medical [Cozaar] 60 tab, 4 Center Refill(s), [facility] [id number] Nitroglycerin 0.4 0.4 mg=1 Active [facility] MG/ACTUAT Mucosal spray, SL, 2015 Medical [place] Q5Min, # 4 Center gm, 1 Refill(s), Pharmacy: [facility], Please fax all future refill requests to: [phone]. 24 HR Metoprolol 25 mg=1 tab, Active [facility] Tartrate 25 MG PO, BID, # 2015 Medical Extended Release 180 tab, 3 Center Tablet [Toprol] Refill(s), Pharmacy: [facility] Aspirin 81 MG 81 mg=1 tab, Active [facility] Chewable Tablet PO, Daily, # 2015 Medical 30 tab, 0 Center Refill(s), other Metformin 1,000 mg=1 Active [place] hydrochloride 1000 tab, PO, 2015 Medical MG Oral Tablet BID-Meals, # Center [Glucophage] 60 tab, 1 Refill(s) Losartan Potassium 50 mg=1 tab, Active [place] 50 MG Oral Tablet PO, Daily, # 2014 Medical [Cozaar] 30 tab, 0 Center Refill(s) Vitamin B 12 =1 mL, per Active [facility] month, 0 2014 Medical Refill(s) Center Vitamin C 1000 mg 1,000 mg=1 Active [place] oral tablet tab, PO, 2014 Medical Daily, # 30 Center tab, 0 Refill(s) atorvastatin 80 MG 80 mg=1 tab, Active [place] Oral Tablet PO, Bedtime, 2014 Medical [Lipitor] # 30 tab, 0 Center Refill(s) lubiprostone 24 24 Active [place] mcg oral capsule microgram=1 2014 Medical cap, PO, BID, Center # 60 cap, 0 Refill(s) meloxicam 15 mg 15 mg=1 tab, Active [facility] oral tablet PO, Daily, # 2014 14 tab, 0 Refill(s) gabapentin 300 MG [...] 100 mg=1 tab, Active [facility] Hydrochloride 100 PO, Bedtime, 2015 MG Oral Tablet # 30 tab, 6 Refill(s), Pharmacy: [facility][id number] gabapentin 300 MG 300 mg=1 cap, Active [facility] Oral Capsule PO, Q8H-05, # 2014 90 cap, 6 Refill(s), Pharmacy: [facility] #1294 baclofen 10 mg 10 mg=1 tab, Active [facility] oral tablet PO, Q8H-05, # 2014 90 tab, 6 Refill(s), Pharmacy: [facility] #[id number] 24 HR Metoprolol 25 mg=1 tab, Active Center Tartrate 25 MG PO, Daily, # 2013 for Adv Extended Release 30 tab, 5 Heart Tablet [Toprol] Refill(s), Failure Pharmacy: [facility] #1294 Docusate Sodium 100 mg=1 cap, Active [facility] 100 MG Oral PO, BID, 2014 Capsule [Colace] Constipation, # 60 cap, 1 Refill(s) Docusate Sodium 283 mg=1 ea, Inactive [facility] 56.6 MG/ML Enema SD, Every 2013 [Enemeez] Other Day, # 30 ea, 0 Refill(s) gabapentin 300 MG 300 mg=1 cap, Active [facility] Oral Capsule PO, Q8H-05, # 2013 [...] 17:47:00, Stop date: 06/01/14 17:47:00 magnesium oxide 800 mg=2 tab, Active [facility] 400 mg oral tablet PO, TID, 0 2013 Refill(s) Lidocaine 2 patch, TOP, Active [facility] Hydrochloride 0.05 Daily, Remove 2014 MG/MG Transdermal after 12 Patch [Lidoderm] hours, 0 Refill(s)Spec ial Instructions: Remove after 12 hours Fluocinonide 0.5 1 appl, TOP, Active [facility] MG/ML Topical BID, 0 2013 Cream Refill(s) Folic Acid 1 MG 1 mg=1 tab, Active [facility] Oral Tablet PO, Daily, 0 2013 Refill(s) bisacodyl 5 mg 10 mg=2 tab, Active [facility] oral enteric PO, Daily, # 2013 coated tablet 60 tab, 1 Refill(s) bisacodyl 10 mg 10 mg=1 supp, Active [facility] rectal suppository SD, Daily, # 2013 30 supp, 1 Refill(s) gabapentin 300 MG 300 mg=1 cap, No Longer [facility] Oral Capsule PO, Q8H, # 90 Active 2013 cap, 1 Refill(s) Cranberry 36 mg=1 cap, Active [facility] preparation PO, Daily, 0 2013 Refill(s) baclofen 10 mg 10 mg=1 tab, Active [facility] oral tablet PO, Q8H-05, # 2013 90 tab, 1 Refill(s) aMILoride 5 mg 5 mg=1 tab, Active [facility] oral tablet PO, Daily, # 2013 30 tab, 0 Refill(s) atorvastatin 40 mg 80 mg=2 tab, Active [facility] oral tablet PO, Bedtime, 2013 0 Refill(s) ascorbic acid 500 500 mg=1 tab, Active [facility] mg oral tablet PO, BID, 0 2013 Refill(s) enoxaparin 30 30 mg=0.3 mL, Active [facility] mg/0.3 mL SUB-Q, 2013 subcutaneous [id number], # solution 42 unit, 0 Refill(s) pantoprazole 40 mg 40 mg=1 tab, Active [facility] oral enteric PO, Before 2013 coated tablet Breakfast, 0 Refill(s) 24 HR Metoprolol 1/2 tab, PO, No Longer [facility] Tartrate 25 MG Daily, 0 Active 2013 Extended Release Refill(s) Tablet [Toprol] polyethylene 17 gm, PO, Active [facility] glycol 3350 oral BID, # 527 2014 powder for gm, 1 reconstitution Refill(s) Trazodone 50 mg=1 tab, Active [facility] Hydrochloride 50 PO, Bedtime, 2014 MG Oral Tablet # 30 tab, 1 Refill(s) [...] times, Stop date: 05/31/14 14:00:00 Docusate Sodium 283 mg, 5 mL, No Longer [facility] 56.6 MG/ML Enema Route: SD, Active 2013 [Enemeez] Drug form: GEORGINA, Every Other Day, Dosing [...] 1 appl, No Longer [facility] MG/ML Topical Route: TOP, Active 2013 Cream BID, Drug form: CRM, Start date: 05/26/14 8:30:00, Duration: 30 day, Stop date: 06/24/14 21:00:00Notes : (Same as: Lidex) sennosides, FPC 34.4 mg, 4 No Longer [facility] tab, Route: Active 2013 PO, Drug Form: TAB, Dosing Weight 65.455, kg, QNoon, Start date: 05/25/14 12:00:00, Duration: 60 day, Stop date: 07/23/14 12:00:00Notes : (Same as: Senokot) Dulcolax Laxative 10 mg, 1 No Longer [facility] supp, Route: Active 2013 SD, Drug form: SUPP, Bedtime, Dosing Weight 60.966, kg, Start date: 05/24/14 21:00:00, Duration: 60 day, Stop date: 07/22/14 21:00:00Notes : (Same As: Dulcolax, Bisco-Lax) Magnesium Oxide 800 mg, 2 No Longer [facility] tab, Route: Active 2013 PO, Drug form: TAB, TID, Dosing Weight 65.455, kg, Start date: 05/24/14 21:00:00, Duration: 60 day, Stop date: 07/23/14 13:00:00Notes : (Same as: Mag-Ox 400) Magnesium oxide [id number] elemental magnesium Dose=____mg magnesium oxide (___mg elemental [...] (Same As: Lioresal) azelaic acid 5 MG 1 tab, Route: Inactive [facility] / Cupric oxide 1.5 PO, Drug 2013 MG / Folic Acid Form: TAB, 0.5 MG / Dosing Weight Niacinamide 600 MG 60.966, kg, / pyridoxine 5 MG Daily, Start / Zinc Oxide 10 MG date: Oral Tablet 05/21/14 8:30:00, Duration: 60 day, Stop date: [...] Same as Zinc Sulfate Ascorbic Acid 120 1 tab, Route: Inactive [facility] MG / Beta Carotene PO, Drug 2013 2700 UNT / Calcium Form: TAB, Carbonate 200 MG / Dosing Weight Cholecalciferol 60.966, kg, 400 UNT / Cupric Daily, Start oxide 2 MG / date: Docusate Sodium 50 05/20/14 MG / Folic Acid 1 8:30:00, MG / Iron Carbonyl Duration: 60 90 MG / Magnesium day, Stop Oxide 30 MG / date: Niacinamide 20 MG 07/18/14 / Pyridoxine 8:30:00 Hydrochloride 2 Vitamin C 500 mg, 1 No Longer [facility] tab, Route: Active 2013 PO, Drug form: TAB, BID, Dosing Weight 60.966, kg, Start date: 05/19/14 21:00:00, Duration: 60 day, Stop date: 07/18/14 8:30:00Notes: (Same as: Vitamin C) Oxymetazoline 2 spray, No Longer [facility] hydrochloride 0.5 Route: NASAL, Active 2013 MG/ML Nasal [place] Q12H, Drug [Afrin] form: ZARI, PRN Nasal Congestion, Start date: 05/19/14 11:29:00, [...] (Same as: Mag Tab SR) Docusate Sodium 283 mg, 5 mL, No Longer [facility] 56.6 MG/ML Enema Route: SD, Active 2013 [Enemeez] Drug form: GEORGINA, Bedtime, Dosing Weight 60.966, [...] SMOG Enema 900 ml, Inactive [facility] Route: SD, 2013 Drug Form: GEORGINA, Dosing Weight 60.966, kg, ONCE, Start date: 05/12/14 11:29:00, Duration: 1 doses or times, Stop date: 05/12/14 11:00Notes : Non formulary item gabapentin 300 MG 300 mg, 1 No Longer [facility] Oral Capsule cap, Route: Active 2013 PO, Drug form: CAP, Q8H-05, Dosing Weight 65.455, kg, Start date: 05/10/14 21:00:00, Duration: 60 day, Stop date: 07/09/14 13:00:00Notes : (Same as: Neurontin) Docusate Sodium 283 mg, 5 mL, No Longer [facility] 56.6 MG/ML Enema Route: SD, Active 2013 [Enemeez] Drug form: GEORGINA, BID, Dosing Weight 60.966, kg, PRN Constipation, Start date: 05/10/14 14:06:00, Duration: 60 day, Stop date: 07/09/14 14:05:00Notes : Same as Enemeez Non formulary item Trazodone 50 mg, 1 tab, No Longer [facility] Hydrochloride 50 Route: PO, Active 2013 MG Oral Tablet Drug form: TAB, Bedtime, Dosing Weight 65.455, kg, Start date: 05/09/14 21:00:00, Duration: 30 day, Stop date: 07/07/14 21:00:00Notes : (Same As: Desyrel) Magnesium Oxide 800 mg, 2 No Longer [facility] tab, Route: Active 2013 PO, Drug form: TAB, BID, Dosing Weight 65.455, kg, Start date: 05/07/14 21:00:00, Duration: 60 day, Stop date: 07/06/14 8:30:00Notes: (Same as: Mag-Ox 400) Magnesium oxide [id number] elemental magnesium Dose=____mg magnesium oxide (___mg elemental magnesium) Bisacodyl 10 mg, 1 No Longer [facility] supp, Route: Active 2013 SD, Drug form: SUPP, Daily, Dosing Weight 65.455, kg, Start date: 05/07/14 20:00:00, Duration: 60 day, Stop date: 07/05/14 20:00:00Notes : (Same As: Dulcolax, Bisco-Lax) sennosides, FPC 17.2 mg, 2 No Longer [facility] tab, Route: 2013 PO, Drug Form: TAB, Dosing Weight 65.455, kg, QNoon, Start date: 05/07/14 12:00:00, Duration: 60 day, Stop date: 07/05/14 12:00:00Notes : (Same as: Senokot) Fish Oil 1,000 mg, 1 No Longer [facility] cap, Route: 2013 PO, Drug form: CAP, Daily, Dosing Weight 65.455, kg, Start date: 05/07/14 8:30:00, Duration: 60 day, Stop date: 07/05/14 8:30:00Notes: (Same as: MaxEPA, Rhame 3 fish oil ) Non-Formular y Drug 24 HR Metoprolol 12.5 mg, 0.5 No Longer [facility] Tartrate 25 MG tab, Route: Active 2013 Extended Release PO, Drug Tablet [Toprol] form: ERTAB, Daily, Start date: 05/07/14 8:30:00, Duration: 60 day, Stop date: 07/05/14 8:30:00Notes: (Same as: Toprol XL) Do Not Crush Cymbalta 20 mg, 1 cap, No Longer [facility] Route: PO, Active 2013 Drug form: DRC, Daily, Dosing Weight [...] (Do Not Crush) "Do Not Crush" Cranberry 36 mg, 1 cap, No Longer [facility] preparation Route: PO, Active 2013 Drug Form: CAP, Dosing Weight 65.455, kg, Daily, Start date: 05/07/14 8:30:00, Stop date: 07/05/14 8:30:00Notes: (Same as: Soni) Non Formulary Metformin 500 mg, 1 No Longer [facility] hydrochloride 500 tab, Route: Active 2013 MG Oral Tablet PO, Drug form: TAB, TID-Meals, [...] Route: Active 2013 SUB-Q, Drug form: INJ, [id number], Dosing Weight 65.455, kg, Start date: 05/06/14 22:00:00, Stop date: 08/06/14 9:00:00Notes: (Same as: Lovenox) gabapentin 300 MG 300 mg, 1 No Longer [facility] Oral Capsule cap, Route: Active 2013 PO, Drug form: CAP, TID, Dosing Weight 65.455, kg, Start date: 05/06/14 21:00:00, Duration: 60 day, Stop date: 07/05/14 13:00:00Notes : (Same as: Neurontin) Docusate Sodium 100 mg, 1 No Longer [facility] 100 MG Oral cap, Route: Active 2013 Capsule [Colace] PO, Drug form: CAP, BID, Dosing [...] 4 gm/day. (Same as: Tylenol) Acetaminophen 325 1 tab, Route: No Longer [facility] MG / Hydrocodone PO, Drug Active 2013 Bitartrate 10 MG Form: TAB, Oral Tablet [Walker Dosing Weight 10/325] 65.455, kg, Q4H, PRN Pain Score 1-3, Start date: 05/06/14 20:00:00, Duration: 60 day, Stop date: 07/05/14 19:59:00Notes : Do not exceed 4gm/day of acetaminophen . (Same as: Walker 325/10) Simethicone 80 mg, 1 tab, No [...] 60 day, Stop date: 07/05/14 19:59:00Notes : Roll in palms of hands gently; Do not shake vigorously. (Same as: NovoLOG) "single patient use only" Stable for 28 days at room temperature. Expires in days from _Date Melatonin 6 mg, 2 tab, No Longer [facility] Route: PO, Active 2013 Drug form: TAB, Bedtime, Dosing Weight 65.455, kg, PRN Insomnia, Start date: 05/06/14 20:00:00, Stop date: 07/05/14 19:59:00Notes : (Same as: Melatonin) Saline Flush 0.9% [...] 19:59:00Notes : (Same as: Zofran) Acetaminophen 325 1 tab, Route: No Longer [facility] MG / Hydrocodone PO, Drug Active 2013 Bitartrate 5 MG Form: TAB, Oral Tablet [Walker Dosing Weight 5/325] 65.455, kg, Q4H, PRN Pain Score 1-3, Start date: 05/06/14 20:00:00, Duration: 60 day, Stop date: 07/05/14 19:59:00Notes : (Same as: Walker 325/5) Do not exceed 4gm/day of acetaminophen . Promethazine 25 mg, 1 tab, No Longer [facility] Route: PO, Active 2013 Drug form: TAB, Daily, Dosing Weight 65.455, kg, PRN as needed for nausea/vomiti ng, Start date: 05/06/14 19:51:00, Duration: 60 day, Stop date: 07/05/14 19:50:00Notes : (Same as: Phenergan) Clonidine 0.1 mg, 1 No Longer [facility] Hydrochloride 0.1 tab, Route: Active 2013 MG Oral Tablet PO, Drug form: TAB, TID, [...] mg, PO, No Longer [facility] Hydrochloride 0.1 TID, Active 2013 MG Oral Tablet Hypertension, 0 Refill(s) Docusate Sodium 100 mg, PO, No Longer [facility] 100 MG Oral BID, Active 2013 Capsule [Colace] Constipation, # 20 cap, 0 Refill(s) 24 HR Isosorbide 30 mg=1 tab, Active [facility] Mononitrate 30 MG PO, QAM, # 90 2013 Extended Release tab, 0 Tablet [Imdur] Refill(s) Carisoprodol 350 350 mg, PO, No Longer [facility] MG Oral Tablet Q8H, Muscle Active 2013 [Soma] Spasms, 0 Refill(s) bisacodyl 5 mg 10 mg=2 tab, No Longer [facility] oral enteric PO, Daily, Active 2013 coated tablet Constipation, # 20 tab, 0 Refill(s) bisacodyl 10 mg 10 mg=1 supp, No Longer [facility] rectal suppository SD, Daily, Active 2013 Constipation, # 10 supp, 0 Refill(s) gabapentin 300 MG 300 mg=1 cap, No Longer [facility] Oral Capsule PO, TID, # 90 Active 2013 cap, 0 Refill(s) Hydrochlorothiazid 25 mg, Daily, Active [place] e 0 Refill(s) 2013 [facility] Metformin 500 mg=1 tab, Active [facility] hydrochloride 500 PO, TID, # 30 2013 Medical MG Oral Tablet tab, 0 Center Refill(s) [place] Potassium 99 2 tabs, PO, Active [facility] oral tablet Daily, 0 2013 Medical Refill(s) [place] Insulin, Aspart, sliding Active [facility] Human 100 UNT/ML scale, SUB-Q, 2013 Medical Injectable PRN, # 10 mL, Center Solution [NovoLog] 0 Refill(s) Insulin Glargine =15 unit, Active [facility] 100 UNT/ML SUB-Q, Daily, 2013 Medical Injectable # 10 ml, 0 [place] Solution [Lantus] Refill(s) atorvastatin 80 MG 80 mg=1 tab, Active [facility] Oral Tablet PO, Bedtime, 2013 Medical [Lipitor] # 90 tab, 0 Center Refill(s) promethazine 25 mg 25 mg=1 tab, Active [facility] oral tablet PO, Daily, 2013 Medical for motion Center sickness, # 60 tab, 0 Refill(s) Probiotic Formula PO, Daily, 0 Active [facility] oral capsule Refill(s) 2013 [facility] metoprolol 50 mg =0.5 mg, PO, Active [facility] oral tablet, Daily, # 30 2013 Medical extended release tab, 0 Center Refill(s) isosorbide 30 mg=1 tab, Active [facility] dinitrate 30 mg PO, Daily, # 2013 Medical oral tablet 120 tab, 0 Center Refill(s) lubiprostone 0.024 24 Active [facility] MG Oral Capsule microgram=1 2013 Medical [Amitiza] cap, PO, BID, Center # 60 cap, 0 Refill(s) duloxetine 20 MG 20 mg=1 cap, Active [facility] Enteric Coated PO, Daily, # 2013 Medical Capsule [Cymbalta] 180 cap, 0 Center Refill(s) Zinc 50 mg, PO, Active 11/02[facility] Daily, 0 2013 Medical Refill(s) [place] Aspirin 81 MG 81 mg=1 tab, Active [facility] Enteric Coated PO, Daily, # 2013 Medical Tablet 0 tab, 0 Center Refill(s) Vitamin C 500 mg 500 mg=1 tab, Active [facility] oral tablet PO, Daily, # 2014 Medical 30 tab, 0 Center Refill(s) clopidogrel 75 MG 75 mg=1 tab, Active [facility] Oral Tablet PO, Daily, # 2014 Medical [Plavix] 30 tab, 0 Center Refill(s) magnesium oxide 400 mg=1 tab, Active [place] 400 mg oral tablet PO, BID, # 10 2013 Medical tab, 0 Center Refill(s) Fish Oil PO, Daily, 0 Active [facility] Refill(s) 2014 Medical Center Folic Acid 400 mg, PO, Active [facility] BID, 0 2014 Medical Refill(s) Center ramipril 10 mg 10 mg=1 cap, Active [facility] oral capsule PO, BID, # 30 2014 Medical cap, 0 Center Refill(s) Nitroglycerin 0.4 0.4 mg=1 tab, Active [facility] MG Sublingual SL, Q5Min, 2014 Medical Tablet Chest pain, # Center 100 tab, 0 Refill(s) Clopidogrel DAILY Active St. Bisulfate 2014 [facility] [place] Atorvastatin AT BEDTIME Active St. Calcium 2014 [facility] [place] Metformin Hcl THREE TIMES A Active St. DAY 2014 [facility] [place] Lubiprostone TWICE DAILY Active St. WITH MEALS 2014 [facility] [place] Isosorbide [place] DAILY Active St[facility] 2014 [facility] [place] Folic Acid DAILY Active St. 2014 [facility] [place] Allergies, Adverse Reactions, Alerts Substance Category Reaction Severity Reaction Status Date Comments Source type Reported erythromycin Rash Moderate Allergy to Active [facility] base Substance 7 [facility] [facility] Penicillins SWELLING Moderate Allergy to Active [facility] Substance 7 [facility] azithromycin Unknown Allergy to Active [facility] Substance 7 [facility] [place] Cipro IV Unknown Allergy to Active [facility] Substance 7 [facility] [place] erythromycin Assertion Drug Active [facility] allergy Erythromycin Assertion Drug Active [facility] Ethylsuccinat allergy e penicillins Assertion Drug Active [facility] allergy Cipro Assertion Drug Active [facility] allergy Immunizations Immunization Date Site Status Last Comments Source Given Updated influenza virus Right completed [facility] vaccine, 4 deltoid for Adv inactivated Heart Failure, [facility] influenza virus Right completed [facility] vaccine, 4 deltoid for Adv inactivated Heart Failure,[facility] Results Order Name Results Value Reference Date Interpretation Comments Source Range Shoulder Shoulder 2+ 3 VIEW LEFT SHOULDER 11/21 - [facility] 2+ Views Views /2017 - Bilateral Bilateral DX [...] IMPRESSION: Negative bilateral shoulders. END REPORT SL: [id number] Abdomen/Pe Abdomen/Pelv PROCEDURE: CT ABDOMEN AND PELVIS WITHOUT CONTRAST 09/23 - [facility] lvis wo IV is wo IV - contrast contrast CT CT Clinical Indication: Neurogenic bladder. Presurgical planning [...] 4. Figueroa catheter present. END REPORT SL: [id number] Laboratory Other Total 11.3 g/dl - 06/05 [facility]. Studies Hemoglobin [email or web address] - (Blood Gas) [place] [facility] Blood Gas pH 7.39 7.35 - 06/05 [facility]. Studies 7.45 [facility] [place] [facility] Blood Gas 66.9 mmHG 75 - 100 06/05 [facility]. Studies PO2 [facility] [place] [facility] Blood Gas 50.8 mmHG 35 - 45 06/05 [facility]. Studies PCO2 /2016 [facility] [place] [facility] Blood Gas 87.9 % 94 - 97 06/05 [facility]. Studies Oxyhemoglobi /2016 [facility] n [place] [facility] Blood Gas 21.0 % 06/05 [facility]. Studies Inspired [email or web address] - Oxygen [place] [facility] Blood Gas 30.4 22 - 28 06/05 [facility]. Studies HCO3 mmol/L /2016 [facility] [place] [facility] Blood Gas 5.6 mmol/L 06/05 [facility]. Studies Base Excess /2016 [facility] [place] [facility] Arterial 1.4 % 0 - 1.5 06/05 [facility]. Studies Blood /2016 [facility] Methemoglobi [place] n Laboratory Arterial 0.9 % 0 - 1.5 06/05 [facility]. Studies Blood [facility] - Carboxyhemog [place] lobin Laboratory Arterial Bld 90.0 % 92 - 98.5 06/05 [facility]. Studies O2 [facility] Saturation [place] (Measur) Laboratory Procalcitoni null 06/05 [facility]. Studies n /2016 [facility] [place] Laboratory Thyroid 2.04 0.34 - 06/05 [facility] Studies Stimulating uIU/mL 5.60 [facility] Hormone [place] (TSH) Laboratory Magnesium 2.4 mg/dL 1.8 - 2.5 06/05 [facility]. Studies Level /2016 [facility] [place] [facility] Estimat null 90 06/05 [facility]. Studies Glomerular /2016 [facility] Filtration [place] Rate Laboratory Creatinine 0.45 mg/dL 0.44 - 06/05 [facility]. Studies 1.00 [facility] [place] [facility] Blood Urea 5 mg/dL 6 - 06/05 [facility]. Studies Nitrogen [facility] [place] [facility] Troponin I null 06/05 [facility]. Studies /2016 [facility] [place] [facility] White Blood 11.4 K/uL 4.3 - 10.9 06/05 [facility] Studies Count /2016 [facility] [place] [facility] Red Cell 20.3 % 12.1 - 06/05 [facility] Studies Distribution 15.2 [facility] Width [place] Laboratory Red Blood 4.06 M/uL 3.86 - 06/05 [facility] Studies Count 4.86 [facility] [place] [facility] Platelet 262 K/uL 152 - 406 06/05 [facility] Studies Count /2016 [facility] [place] [facility] Neutrophils 41.9 % 41.7 - 06/05 [facility]. Studies % 73.7 /2016 [facility] [place] [facility] Monocytes % 7.8 % 3.3 - 12.3 06/05 [facility]. Studies /2016 [facility] [place] Laboratory Mean 8.0 fL 7.6 - 11.3 06/05 [facility] Studies Platelet /2016 [facility] Volume [place] Laboratory Mean 82.5 fL 80 - 100 06/05 [facility] Studies Corpuscular /2016 [facility] Volume [place] Laboratory Mean 32.4 g/dL 32.0 - 06/05 [facility] Studies Corpuscular 36.0 /2016 [facility] Hemoglobin [place] Concent Laboratory Mean 26.8 pg 27.0 - 06/05 [facility] Studies Corpuscular 35.0 /2016 [facility] Hemoglobin [place] Laboratory Lymphocytes 38.7 % 15.3 - 06/[address] [facility] [address] Studies % 44.8 /2017 [facility] [place] [facility] Hemoglobin 10.9 g/dL 12.0 - 06/05 St. Studies 15.0 /2016 [facility] [place] [facility] Hematocrit 33.5 % 36.0 - 06/05 St. Studies 45.0 /2016 [facility] [place] [facility] Eosinophils 11.0 % 0 - 4.4 06/05 St. Studies % /2016 [facility] [place] [facility] Basophils % 0.6 % 0 - 1.3 06/05 St. Studies /2016 [facility] [place] Laboratory Absolute 4.8 K/uL 1.8 - 8.0 06/05 St. Studies Neutrophil /2016 [facility] [place] [facility] Absolute 0.9 K/uL 0.1 - 1.3 06/05 St[facility] Studies Monocytes [facility] (CBC) [place] [facility] Absolute 4.4 K/uL 0.7 - 4.9 06/05 [facility]. Studies Lymphocytes [facility] (CBC) [place] [facility] Absolute 1.3 K/uL 0 - 0.5 06/05 St. Studies Eosinophils [facility] (CBC) [place] [facility] Absolute 0.1 K/uL 0 - 0.5 06/05 St[facility] Studies Basophils [facility] (CBC) [place] [facility] Sodium Level 142 mEq/L 135 - 145 06/05 St. Studies /2016 [facility] [place] [facility] Potassium 4.1 mEq/L 3.6 - 5.0 06/05 St. Studies Level /2016 [facility] [place] [facility] Glucose 127 mg/dL 65 - 120 06/05 St. Studies Level [facility] [place] [facility] Chloride 106 mEq/L 101 - 111 06/05 St. Studies Level [facility] [place] [facility] Carbon 30 mEq/L 21 - 31 06/05 St. Studies Dioxide /2016 [facility] [place] [facility] Calcium 8.6 mg/dL 8.5 - 10.5 06/05 St[facility] Studies Level [facility] [place] [facility] Total 0.4 mg/dL 0.3 - 1.2 06/04 St[facility] Studies Bilirubin [facility] [place] [facility] Serum Total 6.1 g/dL 6.0 - 8.3 06/04 St. Studies Protein /2016 [facility] [place] [facility] Globulin 3.1 g/dL 2.3 - 3.5 06/04 St[facility] Studies [facility] [place] [facility] Creatine 6.1 ng/ml 0.3 - 4.0 06/04 [facility]. Studies Kinase MB /2016 [facility] [place] [facility] Creatine 108 IU/L 22 - 269 06/04 St. Studies Kinase /2016 [facility] [place] [facility] Aspartate 25 IU/L 10 - 42 06/04 St. Studies Amino Transf /2016 [facility] (AST/SGOT) [place] [facility] Alkaline 70 IU/L 42 - 121 06/04 [facility]. Studies Phosphatase /2016 [facility] [place] Laboratory Albumin/Glob 1.0 1.1 - 1.8 06/04 [facility]. Studies ulin Ratio [facility] [place] [facility] Albumin 3.0 g/dL 3.2 - 5.5 06/04 St[facility] Studies [facility] [place] [facility] Alanine 14 IU/L 10 - 60 06/04 [facility]. Studies Aminotransfe /2016 [facility] rase [place] (ALT/SGPT) Laboratory Segmented 35 % 40 - 80 06/04 [facility]. Studies Neutrophils [facility] [place] [facility] Monocytes 6 % 0 - 10 06/04 St. Studies [facility] [place] [facility] Lymphocytes 41 % 15 - 42 06/04 [facility]. Studies [facility] [place] [facility] Eosinophils 15 % 0 - 3 06/04 [facility]. Studies [facility] [place] [facility] Blood Blood 06/04 [facility]. Studies Morphology Morphology [facility] - Comment Comment [place] [facility] Basophils 2 % 0 - 1 06/04 St. Studies [facility] [place] [facility] Band 1 % 0 - 1 06/04 [facility]. Studies Neutrophils [facility] [place] [facility] Urine pH 5.5 06/03 [facility]. Studies [facility] [place] [facility] Urine Total Urine 06/03 [facility]. Studies Protein Total [facility] Protein [place] [facility] Urine null 06/03 [facility]. Studies Specific [facility] [place] [facility] Urine Urine 06/03 [facility]. Studies Nitrite Nitrite [facility] [place] [facility] Urine Urine 06/[address] [facility] Studies Leukocyte Leukocyte [facility] Esterase Esterase [place] Laboratory Urine Urine 06/03 St[facility] Studies Ketones Ketones /2016 [facility] [place] [facility] Urine Urine 06/03 St[facility] Studies Glucose Glucose [facility] [place] [facility] Urine Blood Urine 06/03 St[facility] Studies Blood [facility] [place] [facility] Polychromasi Polychroma 06/03 St[facility] Studies a [place] [facility] [place] [facility] Macrocytosis Macrocytos 06/03 St[facility] Studies is [facility] [place] Laboratory Anisocytosis Anisocytos 06/03 St[facility] Studies is [facility] [place] [facility] C-Reactive 18.6 mg/L 05/22 St[facility] Studies Protein [facility] [place] [facility] Sedimentatio 47 mm/HR 0 - 30 05/22 St. Studies n Rate, [facility] [place] [facility] Direct 0.1 mg/dL 0 - 0.2 05/22 St[facility] Studies Bilirubin [facility] [place] Microbiolo Klebsiella Klebsiella 03/28 St[facility] Studies Pneumoniae Pneumoniae /2016 [facility] [place] Laboratory Bedside 154 mg/dl 65 - 120 03/27 St[facility] Studies Glucose [facility] [place] Microbiolo Klebsiella Klebsiella 03/27 St[facility] gy Studies Oxytoca Oxytoca [facility] [place] Laboratory Basophilic Basophilic 03/26 St. Studies Stippling Stippling [facility] [place] Laboratory Prothrombin 15.5 9.5 - 12.5 03/25 St. Studies Time SECONDS [facility] [place] [facility] INR 1.31 03/25 St. Studies Internationa [facility] - l Normalized [place] Ratio Laboratory Activated 27.1 24.3 - 03/25 St. Studies Partial SECONDS 36.9 [facility] Thromboplast [place] Time Laboratory B-Type 120 pg/ml 03/25 St. Studies Natriuretic [facility] Peptide [place] Laboratory Rapid 0.03 ng/mL 03/25 St. Studies Troponin I [facility] [place] Laboratory Lipase 10 U/L 22 - 51 03/25 St[facility] Studies [facility] [place] Spine Spine PROCEDURE: CT CERVICAL SPINE WITHOUT CONTRAST 06/07 [facility] cervical cervical wo /2015 - contrast CT contrast CT Clinical Indication: [...] 4. Multilevel bony foraminal stenosis. END IMPRESSION [id number] Spine Spine MRI CERVICAL SPINE WITHOUT CONTRAST 07/08 [facility] cervical cervical /2015 - [facility] w/wo w/wo [place] contrast contrast MRI MRI TECHNIQUE: Multiplanar [...] of 60-89 may be normal in [facility] mL/min/1. some populations, particularly the elderly, for [...] CO2 24 meq/L 24 - 32 07/06 [facility] CHEM PANEL Chloride Lvl 94 meq/L 95 - 109 07/06 [facility] CHEM PANEL Alk Phos 76 unit/L 39 - 136 07/06 [facility] CHEM PANEL AST 13 unit/L 0 - 37 07/06 [facility] CHEM PANEL Total 6.3 g/dL 6.4 - 8.4 07/06 CHEM PANEL Calcium Lvl 9.3 mg/dL 8.5 - 10.5 07/06 CHEM PANEL Bili Total 0.4 mg/dL 0.2 - 1.3 07/06 [facility] CHEM PANEL ALT 14 unit/L 0 - 65 07/06 [facility] CHEM PANEL Albumin Lvl 3.0 g/dL 3.5 - 5.0 07/06 CHEM PANEL Potassium 5.0 meq/L 3.5 - 5.1 07/06 [facility] Lv CHEM PANEL Sodium Lvl 128 meq/L 135 - 145 07/06 [facility] CHEM PANEL Creatinine 0.4 mg/dL 0.5 - 1.4 07/06 [facility] CHEM PANEL BUN 8 mg/dL 7 - 22 07/06 [facility] CHEM PANEL Glucose Lvl 113 mg/dL 70 - 99 07/06 2Interpretive Data: Adult reference range values reflect the clinical guidelines of the [place] [employer]. CHEM PANEL AGAP 15.0 meq/L 10.0 - 07/06 [facility] . CHEM PANEL B/C Ratio 20 6 - 25 07/06 [facility] CHEM PANEL Globulin 3.3 g/dL 2.0 - 4.0 07/06 [facility] CHEM PANEL A/G Ratio 0.9 0.7 - 1.6 07/06 [facility] HEMATOLOGY Basophils 0.4 % 0.0 - 1.0 07/06 [facility] HEMATOLOGY Segs-Bands # 8.7 K/CMM 1.5 - 8.1 07/06 [facility] HEMATOLOGY Monocytes 9.2 % 2.0 - 12.0 07/06 [facility] HEMATOLOGY Lymphocytes 20.1 % 20.0 - 07/06 [facility] 40.0 HEMATOLOGY Eosinophils 0.7 % 0.0 - 4.0 07/06 [facility] HEMATOLOGY Segs 69.6 % 45.0 - 07/06 [facility] 75.0 HEMATOLOGY Toxic Gran Slight 07/06 [facility] HEMATOLOGY Anisocyte 1+ None Seen 07/06 [facility] *ABN* (07/06/14 10:20 AM) HEMATOLOGY Microcyte 3+ None Seen 07/06 [facility] *NA* (07/06/14 10:20 AM) HEMATOLOGY Basophils # 0.1 K/CMM 0.0 - 0.2 07/06 [facility] HEMATOLOGY Monocytes # 1.1 K/CMM 0.0 - 0.8 07/06 [facility] HEMATOLOGY Eosinophils 0.1 K/CMM 0.0 - 0.5 07/06 [facility] HEMATOLOGY Lymphocytes 2.5 K/CMM 1.0 - 5.5 07/06 [facility] HEMATOLOGY Plt Morph Normal 07/06 [facility] (07/06/14 10:20 AM) HEMATOLOGY Hypochrom 1+ None Seen 07/06 [facility] (07/06/14 10:20 AM) HEMATOLOGY MPV 8.6 fL 7.4 - 10.4 07/06 [facility] HEMATOLOGY RDW 21.4 % 11.5 - 07/06 [facility] 14.5 HEMATOLOGY Platelet 354 K/CMM 133 - 450 07/06 [facility] HEMATOLOGY MCH 21.3 pg 27.0 - 07/06 [facility] 31.0 HEMATOLOGY MCHC 29.8 g/dL 32.0 - 07/06 [facility] 36.0 HEMATOLOGY Hgb 10.6 g/dL 12.0 - 07/06 [facility] 16.0 HEMATOLOGY RBC 5.01 M/CMM 4.20 - 07/06 [facility] 5.40 HEMATOLOGY Hct 35.7 % 36.0 - 07/06 [facility] 48.0 HEMATOLOGY MCV 71.3 fL 80.0 - 07/06 [facility] 98.0 HEMATOLOGY WBC 12.5 K/CMM 3.7 - 10.4 07/06 [facility] CHEM PANEL Magnesium 1.5 mg/dL 1.8 - 2.4 06/03 [facility] Lv CHEM PANEL eGFR 106 06/03 1Result Comment: [...] 30 meq/L 24 - 32 06/03 [facility] CHEM PANEL Chloride Lvl 101 meq/L 95 - 109 06/03 [facility] CHEM PANEL AGAP 12.6 meq/L 10.0 - 06/03 [facility] .0 CHEM PANEL Calcium Lvl 9.1 mg/dL 8.5 - 10.5 06/03 [facility] CHEM PANEL Glucose Lvl 104 mg/dL 70 - 99 06/03 4Interpretive Data: Adult reference range values reflect the clinical guidelines of the [place] [employer]. CHEM PANEL Potassium 4.6 meq/L 3.5 - 5.1 06/03 [facility] Lvl CHEM PANEL Sodium Lvl 139 meq/L 135 - 145 06/03 [facility] CHEM PANEL BUN 4 mg/dL 7 - 22 06/03 [facility] CHEM PANEL Creatinine 0.5 mg/dL 0.5 - 1.4 06/03 [facility] Lvl CHEM PANEL Magnesium 1.2 mg/dL 1.8 - 2.4 06/02 [facility] CHEM PANEL eGFR 106 06/02 2Result Comment: [...] Lvl 99 meq/L 95 - 109 06/02 [facility] CHEM PANEL BUN 7 mg/dL 7 - 22 06/02 [facility] CHEM PANEL Glucose Lvl 123 mg/dL 70 - 99 06/02 5Interpretive Data: Adult reference range values reflect the clinical guidelines of the [place] [employer]. CHEM PANEL Magnesium 1.5 mg/dL 1.8 - 2.4 06/01 [facility] Lv ELECTROLYT CO2 29 meq/L 24 - 32 06/01 [facility] ELECTROLYT Calcium Lvl 8.7 mg/dL 8.5 - 10.5 06/01 [facility] ELECTROLYT AGAP 14.7 meq/L 10.0 - 06/01 [facility] ES 20.0 ELECTROLYT Chloride Lvl 99 meq/L 95 - 109 06/01 [facility] ES ELECTROLYT Potassium 4.7 meq/L 3.5 - 5.1 06/01 [facility] ES Lvl ELECTROLYT Creatinine 0.5 mg/dL 0.5 - 1.4 06/01 [facility] ES Lvl ELECTROLYT Sodium Lvl 138 meq/L 135 - 145 06/01 [facility] ES ELECTROLYT eGFR 106 06/01 3Result Comment: The eGFR [...] should be multiplied by the estimated BMI. ELECTROLYT BUN 6 mg/dL 7 - 22 06/01 [facility] ELECTROLYT Glucose Lvl 92 mg/dL 70 - 99 06/01 6Interpretive Data: Adult reference range values reflect the clinical guidelines [facility] of the [place] [employer]. CHEM PANEL Phosphorus 3.1 mg/dL 2.5 - 4.5 05/31 [facility] /2013 HEMATOLOGY Eosinophils 0.2 K/CMM 0.0 - 0.5 05/31 [facility] # /2013 HEMATOLOGY Lymphocytes 3.2 K/CMM 1.0 - 5.5 05/31 [facility] # /2013 HEMATOLOGY Anisocyte 1+ None Seen 05/31 [facility] *ABN* (05/31/14 4:16 AM) HEMATOLOGY Basophils # 0.0 K/CMM 0.0 - 0.2 05/31 [facility] /2013 HEMATOLOGY Monocytes # 0.6 K/CMM 0.0 - 0.8 05/31 [facility] HEMATOLOGY Polychrom Slight 05/31 [facility] /2013 HEMATOLOGY Microcyte 3+ None Seen 05/31 [facility] /2013 *NA* (05/31/14 4:16 AM) HEMATOLOGY Lymphocytes 33.1 % 20.0 - 05/31 [facility] 40.0 /2013 HEMATOLOGY Monocytes 6.6 % 2.0 - 12.0 05/31 [facility] /2013 HEMATOLOGY Segs-Bands # 5.8 K/CMM 1.5 - 8.1 05/31 [facility] /2013 HEMATOLOGY Basophils 0.1 % 0.0 - 1.0 05/31 [facility] /2013 HEMATOLOGY Segs 58.5 % 45.0 - 05/31 [facility] 75.0 HEMATOLOGY Eosinophils 1.7 % 0.0 - 4.0 05/31 [facility] /2013 HEMATOLOGY MCHC 31.3 g/dL 32.0 - 05/31 [facility] 36.0 HEMATOLOGY MCH 21.7 pg 27.0 - 05/31 [facility] 31.0 HEMATOLOGY MPV 8.2 fL 7.4 - 10.4 05/31 [facility] HEMATOLOGY Platelet 563 K/CMM 133 - 450 05/31 [facility] HEMATOLOGY RDW 20.7 % 11.5 - 05/31 [facility] 14. HEMATOLOGY WBC 9.8 K/CMM 3.7 - 10.4 05/31 [facility] /2013 HEMATOLOGY MCV 69.2 fL 80.0 - 05/31 [facility] 98.0 HEMATOLOGY Hct 28.9 % 36.0 - 05/31 [facility] 48.0 HEMATOLOGY Hgb 9.1 g/dL 12.0 - 05/31 [facility] 16.0 HEMATOLOGY RBC 4.18 M/CMM 4.20 - 05/31 [facility] 5.40 /2013 CHEM PANEL Phosphorus 2.8 mg/dL 2.5 - 4.5 05/24 [facility] /2013 HEMATOLOGY Monocytes # 0.5 K/CMM 0.0 - 0.8 05/24 [facility] /2013 HEMATOLOGY Lymphocytes 3.3 K/CMM 1.0 - 5.5 05/24 [facility] # /2013 HEMATOLOGY Segs-Bands # 2.2 K/CMM 1.5 - [...] # 0.0 K/CMM 0.0 - 0.2 05/24 [facility] HEMATOLOGY Eosinophils 0.2 K/CMM 0.0 - 0.5 05/24 [facility] HEMATOLOGY Plt Morph Normal 05/24 [facility] (05/24/14 5:00 AM) HEMATOLOGY Segs 36.2 % 45.0 - 05/24 [facility] 75.0 HEMATOLOGY Hypochrom 1+ None Seen 05/24 [facility] (05/24/14 5:00 AM) HEMATOLOGY RBC 4.35 M/CMM 4.20 - 05/24 [facility] 5.40 HEMATOLOGY WBC 6.2 K/CMM 3.7 - 10.4 [...] MPV 8.5 fL 7.4 - 10.4 05/24 [facility] CHEM PANEL Phosphorus 3.6 mg/dL 2.5 - 4.5 05/20 [facility] HEMATOLOGY Microcyte 3+ None Seen 05/20 [facility] *NA* (05/20/14 5:20 AM) HEMATOLOGY Anisocyte 1+ None Seen 05/20 [facility] *ABN* (05/20/14 5:20 AM) HEMATOLOGY Monocytes # 0.4 K/CMM 0.0 - 0.8 05/20 [facility] HEMATOLOGY Basophils # 0.0 K/CMM 0.0 - 0.2 05/20 [facility] HEMATOLOGY Eosinophils 0.1 K/CMM 0.0 - 0.5 [...] RDW 21.1 % 11.5 - 05/20 [facility] 14. HEMATOLOGY Platelet 286 K/CMM 133 - 450 05/20 [facility] HEMATOLOGY WBC 6.8 K/CMM 3.7 - 10.4 05/20 [facility] HEMATOLOGY Hct 30.1 % 36.0 - 05/20 [facility] 48.0 /2013 HEMATOLOGY RBC 4.47 M/CMM 4.20 - 05/20 [facility] 5.40 /2013 HEMATOLOGY Hgb 9.2 g/dL 12.0 - 05/20 [facility] 16.0 HEMATOLOGY Polychrom Slight 05/17 [facility] HEMATOLOGY Target Cell Slight 05/17 [facility] HEMATOLOGY Hypochrom 1+ None Seen 05/17 [facility] (05/17/14 4:30 AM) HEMATOLOGY Plt Morph Normal 05/17 [facility] (05/17/14 4:30 AM) HEMATOLOGY Bands 0.0 % 0.0 - 11.0 05/17 [facility] HEMATOLOGY Atypical 0.0 % <=0.0 % 05/17 [facility] Lymph CHEM PANEL Globulin 3.1 g/dL 2.0 - 4.0 05/14 [facility] CHEM PANEL B/C Ratio 18 6 - 25 05/14 [facility] CHEM PANEL A/G Ratio 0.8 0.7 - 1.6 05/14 [facility] CHEM PANEL Bili Total 0.3 mg/dL 0.2 - 1.3 05/14 [facility] CHEM PANEL Alk Phos 75 unit/L 39 - 136 05/14 [facility] CHEM PANEL Total 5.6 g/dL 6.4 - 8.4 05/14 CHEM PANEL ALT 17 unit/L 0 - 65 05/14 [facility] CHEM PANEL Albumin Lvl 2.5 g/dL 3.5 - 5.0 05/14 [facility] CHEM PANEL AST 20 unit/L 0 - 37 05/14 [facility] HEMATOLOGY Plt Morph Normal 05/14 [facility] (05/14/14 5:45 AM) HEMATOLOGY Sed Rate 50 mm/h 0 - 20 05/12 [facility] IMMUNOLOGY C-REACTIVE 64.3 mg/L <=2.9 mg/L 05/12 [facility] HEMATOLOGY Polychrom Slight 05/12 [facility] HEMATOLOGY Atypical [...] Epi None Seen Few 05/07 [facility] STOOL (05/07/14 6:38 AM) URINE AND UA WBC 0-2 /HPF None Seen 05/07 [facility] STOOL /HPF URINE AND UA RBC 0-2 /HPF 0 - 2 05/07 [facility] STOOL SPECIAL Hgb A1C 6.9 % <=5.6 % 05/07 [facility] CHEMISTRY HEMATOLOGY PT 13.9 s 12.0 - 05/07 [facility] 14.7 HEMATOLOGY INR 1.07 0.85 - 05/07 8Interpretive Data: RECOMMENDED RANGES FOR PROTIME INR: [facility] 1. 2.0-3.0 for most medical and surgical thromboembolic states. 2.5-3.5 for artificial heart valves and recurrent embolism. INR SHOULD BE USED ONLY FOR PATIENTS ON STABLE ANTICOAGULANT THERAPY. HEMATOLOGY PTT 24.6 s 22.9 - 05/07 9Interpretive [facility] 35.8 /2013 Data: Heparin Therapeutic Range: 57 - 92 [...] 15 unit/L 0 - 37 05/07 [facility] CHEM PANEL Alk Phos 79 unit/L 39 - 136 05/07 [facility] CHEM PANEL Albumin Lvl 2.7 g/dL 3.5 - 5.0 05/07 [facility] CHEM PANEL Total 5.7 g/dL 6.4 - 8.4 05/07 [facility] THYROID T4 Free 1.55 ng/dL 0.76 - 05/07 [facility] PANEL 1.46 THYROID TSH 4.080 0.360 - 05/07 [facility] PANEL uIU/mL 3.740 /2013 Vital Signs Vital Sign Value Date Comments Source Height 152.4 cm 12/23/2017 [facility] Weight 63.636 12/23/2017 [facility] BMI Calculated 27.4 12/23/2017 [facility] Respitory Rate 18 12/23/2017 [facility] Temperature Oral (F) 97.7 F 12/23/2017 [facility] Heart Rate 99 12/23/2017 [facility] Systolic (mm Hg) 113 12/23/2017 [facility] Diastolic (mm Hg) 76 12/23/2017 [facility] Weight 66.818 11/21/2017 [facility] BMI Calculated 28.77 [...] [facility] Temperature Oral (F) 98.1 F 10/08/2017 [facility] Systolic (mm Hg) 134 10/08/2017 [facility] [...] [facility] Diastolic (mm Hg) 66 08/08/2017 [facility] Temperature Oral (F) 97.6 F 08/07/2017 [facility] Systolic (mm Hg) 94 08/07/2017 [facility] Diastolic (mm Hg) 53 08/07/2017 [facility] Weight 60 08/07/2017 [facility] BMI Calculated 25.83 08/07/2017 [facility] Height 152.4 cm 08/07/2017 [facility] Weight 62.273 07/23/2017 [facility] BMI Calculated 26.78 07/23/2017 [facility] Respitory Rate 18 07/23/2017 [facility] Temperature Oral (F) 97.9 F 07/23/2017 [facility] Heart Rate 83 07/23/2017 [facility] Height 152.5 cm 07/23/2017 [facility] Systolic (mm Hg) 108 07/23/2017 [facility] Diastolic (mm Hg) 70 07/23/2017 [facility] BMI Calculated 27.4 06/26/2017 [facility] Weight 63.636 06/26/2017 [facility] Systolic (mm Hg) 122 06/26/2017 [facility] Diastolic (mm Hg) 71 06/26/2017 [facility] Respitory Rate 20 06/26/2017 [facility] Heart Rate 108 06/26/2017 [facility] Height 152.4 cm 06/26/2017 [facility] Temperature Oral (F) 98.0 F 06/07/[address] [facility] Heart Rate 68 06/07/[address] [facility] Respitory Rate 16 06/07/[address] [facility] Systolic (mm Hg) 158 06/07/[address] [facility] Diastolic (mm Hg) 72 06/07/[address] [facility] Height 60 06/03/[address] [facility] 145 06/03[facility] 89 05/23/2017 [facility] Respitory Rate [...] 78 08/08/2016 [facility] BMI Calculated 27.4 07/23/2016 [facility] Weight 63.636 07/23/2016 [facility] Height 152.4 cm 07/23/2016 [facility] Temperature Oral (F) 97.4 F 07/23/2016 [facility] Respitory Rate 16 07/23/2016 [facility] Heart Rate 80 07/23/2016 [facility] Systolic (mm Hg) 93 07/23/2016 [facility] Diastolic (mm Hg) 58 07/23/2016 [facility] Weight 63.636 07/11/2016 [facility] BMI Calculated 27.4 07/11/2016 [facility] Height 152.4 cm 07/11/2016 [facility] Heart Rate 70 07/11/2016 [facility] Respitory Rate 20 07/11/2016 [facility] Systolic (mm Hg) 126 07/11/2016 [facility] Diastolic (mm Hg) 71 07/11/2016 [facility] Height 152.4 cm 07/04/2016 [facility] BMI Calculated 24.66 07/04/2016 [facility] Weight 57.273 07/04/2016 [facility] Systolic (mm Hg) 101 07/04/2016 [facility] Diastolic (mm Hg) 68 07/04/2016 [facility] Heart Rate 76 07/04/2016 [facility] Respitory Rate 18 07/04/2016 [facility] Weight 55.455 06/07/2016 [facility] BMI Calculated 23.88 06/07/2016 [facility] Height 152.4 cm 06/07/2016 [facility] Systolic (mm Hg) 127 06/07/2016 [facility] Diastolic (mm Hg) 72 06/07/2016 [facility] Respitory Rate 18 06/07/2016 [facility] Weight 62.273 04/20/2016 [facility] Height 152.4 cm 04/20/2016 [facility] BMI Calculated 26.81 04/20/2016 [facility] BMI Calculated 25.05 02/17/2016 [facility] Weight 58.182 02/17/2016 [facility] Height 152.4 cm 02/17/2016 [facility] Respitory Rate 20 02/17/2016 [facility] Heart Rate 72 02/17/2016 [facility] Systolic (mm Hg) 130 02/17/2016 [facility] Diastolic (mm Hg) 69 02/17/2016 [facility] Height 152.4 cm 02/15/2016 [facility] BMI Calculated 26.44 02/15/2016 [facility] Weight 61.42 02/15/2016 [facility] Heart Rate 79 02/15/2016 [facility] Systolic (mm Hg) 121 02/15/2016 [facility] Diastolic (mm Hg) 69 02/15/2016 [facility] Height 152.4 cm 01/19/2016 [facility] BMI Calculated 25.25 01/19/2016 [facility] Weight 58.636 01/19/2016 [facility] Respitory Rate 20 01/19/2016 [facility] Heart Rate 73 01/19/2016 [facility] Systolic (mm Hg) 145 01/19/2016 [facility] Diastolic (mm Hg) 84 01/19/2016 [facility] Weight 59.659 01/03/2016 [facility] Height 152.4 cm 01/03/2016 [facility] BMI Calculated 25.69 01/03/2016 [facility] Heart Rate 71 01/03/2016 [facility] Respitory Rate 16 01/03/2016 [facility] Temperature Oral (F) 97.9 F 01/03/2016 [facility] Systolic (mm Hg) 147 01/03/2016 [facility] Diastolic (mm Hg) 79 01/03/2016 [facility] Weight 57.273 12/29/2015 [facility] Systolic (mm Hg) 165 12/29/2015 [facility] Diastolic (mm Hg) 86 12/29/2015 [facility] BMI Calculated 24.66 12/29/2015 [facility] Height 152.4 cm 12/29/2015 [facility] Temperature Oral (F) 97.8 F 12/29/2015 [facility] Heart Rate 75 12/29/2015 [facility] Respitory Rate 20 12/29/2015 [facility] BMI Calculated 23.51 08/23/2015 [facility] Weight 54.602 08/23/2015 [facility] Height 152.4 cm 08/23/2015 [facility] Heart Rate 69 08/23/2015 [facility] Respitory Rate 16 08/23/2015 [facility] Temperature Oral (F) 97.7 F 08/23/2015 [facility] Systolic (mm Hg) 121 08/23/2015 [facility] Diastolic (mm Hg) 74 08/23/2015 [facility] Heart Rate 77 04/26/2015 [facility] Respitory Rate 16 04/26/2015 [facility] Temperature Oral (F) 97.8 F 04/26/2015 [facility] Systolic (mm Hg) 151 04/26/2015 [facility] Diastolic (mm Hg) 86 04/26/2015 [facility] Weight 47.5 04/26/2015 [facility] BMI Calculated 20.45 04/26/2015 [facility] Height 152.4 cm 04/26/2015 [facility] Systolic (mm Hg) 77 12/22/2014 [facility] [...] Weight 65.568 05/06/2014 [facility] Weight 61.364 03/22/2014 [facility] BMI Calculated 23.22 03/22/2014 [facility] Height 162.56 cm 03/22/2014 [facility] Heart Rate 81 02/01/2014 [facility] Temperature Oral (F) 96.9 F 02/01/2014 [facility] Diastolic (mm Hg) 77 02/01/2014 [facility] Systolic (mm Hg) 163 02/01/2014 [facility] Respitory Rate 16 02/01/2014 [facility] Height 152.4 cm 02/01/2014 [facility] BMI Calculated 28.88 02/01/2014 [facility] Weight 67.074 02/01/2014 [facility] Height 152.4 cm 11/02/2013 [facility] BMI Calculated 28.57 11/02/2013 [facility] Heart Rate 92 11/02/2013 [facility] Temperature Oral (F) 97.4 F 11/02/2013 [facility] Weight 66.364 11/02/2013 [facility] Diastolic (mm Hg) 74 11/02/2013 [facility] Systolic (mm Hg) 117 11/02/2013 [facility] Respitory Rate 16 11/02/2013 [facility] Encounters Location Location Encounter Encounter Reason Attending ADM DC Status Source Details Type Number For Provider Date Date Visit [facility] Outpatient [id number] FOLLOW- BISWAJIT 10/13 Active [facility] TO Center FACILIT Y. [facility] Outpatient [id number] FOLLOW- BISWAJIT 11/17 Active [facility] TO Center FACILIT Y. [facility] Phone [id number] 10/05 10/07 [facility] Message /2013 Center Center for for Adv Advanced Heart Heart Failure Failure [facility] Outpatient [id number] Biswajit 11/02 11/03 [facility] Mario /2013 [facility] Outpatient [id number] Biswajit 02/01 02/02 [facility] Mario /2013 [facility] Outpatient [id number] Biswajit 03/22 03/23 [facility] Mario /2013 [facility] Inpatient [id number] Eleanor 05/06 06/03 [facility]2013 [facility] Phone [id number] 06/04 06/06 [facility] Message /2013 [facility] for for Adv Advanced Heart Heart Failure Failure [facility] [id number] Roldan 06/25 06/26 JEREMY Barrera /2014 [facility] Outpatient [id number] Eleanor 07/06 07/07 [facility] Fritzfran Alberts /2014 [facility] Outpatient [id number] Roldan 12/22 12/23 [facility] [place] /2014 [facility] Outpatient [id number] Biswajit 04/26 04/27 [facility] /2014 [facility] Advanced Heart Failure [facility] Out[facility] Diag [id number] Tobias La 07/08 07/09 [facility] Gui Jr /2015 [facility] Outpatient [id number] Biswajit 08/22 08/23 [facility] /2015 [facility] Advanced Heart Failure [facility] Phone [id number] 08/24 08/26 [facility] Message /2015 Center Center for for Adv Advanced Heart Heart Failure Failure [facility] Phone [id number] 11/24 11/25 [place] Message /2015 [facility] for for Adv Advanced Heart Heart Failure Failure [facility] Outpatient [id number] Argyrios 12/28 12/29 [facility]2015 [facility] Outpatient [id number] Biswajit 01/02 01/03 [facility] /2015 [facility] Advanced Heart Failure [facility] Outpatient [id number] Kayla 01/18 01/19 [facility]2015 [place] [facility] Phone [id number] 01/18 01/20 [place] Message /2015 Center Center for for Adv Advanced Heart Heart Failure Failure [facility] Recurring [id number] Argyrios 02/14 03/[address] [facility] [place] [facility] Outpatient [id number] Kayla 02/16 02/17 [facility] /2015 [facility] [facility] Outpatient [id number] Kayla 04/20 04/21 [facility]2015 [facility] Phone [id number] 05/01 05/03 [place] Message /2015 Center Center for for Adv Advanced Heart Heart Failure Failure [facility] Outpatient [id number] Kayla 06/07 06/[address] [facility] [facility] Outpatient [id number] Yfn 07/04 07/05 [facility] /2016 [facility] Outpatient [id number] Yfn 07/11 07/12 [facility] Barbya-[facility] /2016 [facility] Outpatient [id number] Tomer 07/23 07/24 [facility] /2016 [facility] Advanced Heart Failure [facility] Outpatient [id number] Yfn 08/08 08/09 [facility] [place] /2016 [facility] Phone [id number] 08/14 08/16 [place] Message /2016 [facility] for for Adv Advanced Heart Heart Failure Failure [facility] Phone [id number] 08/28 08/30 [facility] Message /2016 Center Center for for Adv Advanced Heart Heart Failure Failure [facility] Phone [id number] 10/18 10/20 [place] Message /2016 [facility] for for Adv Advanced Heart Heart Failure Failure [facility] Phone [id number] 11/01 11/03 [place] Message /2016 [facility] for for Adv Advanced Heart Heart Failure Failure [facility] Phone [id number] 11/19 11/21 [facility] Message /2016 [facility] for for Adv Advanced Heart Heart Failure Failure [facility] Phone [id number] 11/20 11/22 [place] Message /2016 [facility] for for Adv Advanced Heart Heart Failure Failure [facility] Phone [id number] 11/26 11/28 [place] Message /2016 [facility] Center for for Adv Advanced Heart Heart Failure Failure [facility] Outpatient [id number] Kayla 11/29 11/30 [facility] [id number] 03/25 03/[address] [facility] Phone [id number] 05/01 05/03 [place] Message /2016 Center Center for for Adv Advanced Heart Heart Failure Failure [facility] Phone [id number] 05/16 05/18 [place] Message /2016 [facility] for for Adv Advanced Heart Heart Failure Failure [facility] [id number] 05/[address] [facility] Outpatient [id number] Argyrios 05/23 05/24 [facility] [place] /2016 [facility] Phone [id number] 06/03 06/05 [facility] Message /2016 Center Center for for Adv Advanced Heart Heart Failure Failure [facility] [id number] 06/03 06/[address] [facility]2016 [facility] Outpatient [id number] Roldan 06/26 06/27 [facility] /2017 [facility] Phone [id number] 07/15 07/17 [facility] Neurosurger Message /2017 Neuro y [facility] Outpatient [id number] Biswaji 07/23 07/24 [facility] /2017 [facility] Advanced Heart Failure [facility] Outpatient [id number] Biswajishahrzad 08/07 08/08 [facility] /2017 [facility] Outpatient [id number] [facility] 08/08 [id number] [facility] 08[facility]08 08/09 [facility] Neurosurger [facility] /2017 Neuro y C [facility] Phone [id number] 08/20 08/22 [facility] /2017 [place] [facility] for for Adv Advanced Heart Heart Failure Failure [facility] Outpatient [id number] Roldan 09/23 09/24 [facility] /2017 [facility] Outpatient [id number] Roldan 10/08 10/09 [facility] /2017 [facility] Outpatient [id number] Roldan 10/21 10/22 [facility] /2017 [facility] Outpatient [id number] Roldan 11/20 11/21 [facility] [place] [facility] Outpatient [id number] Argyrios 11/21 11/22 [facility] /2017 [facility] Outpatient [id number] Rosywajishahrzad 12/23 12/24 [facility] /2017 [facility] Advanced Heart Failure Outpatient [id number] CHAVEZ 02/13 [facility] /2018 [facility] Outpatient [id number] FOLLOW- BISWAJIT Cancel [facility] TO [facility] FACILIT Y[facility] Preadmit [id number] CHF BISWAJIT Cancel [facility] Center Procedures Procedure Code Date Perfomer Comments Source Change of [id number] [facility] suprapubic 8 catheter-(18 fr 5cc) Change of [id number] Center for suprapubic 8 Adv Heart catheter-(18 fr Failure 5cc) Change of [id number] [facility]-(18 fr 5cc) Chest Single View [id number] [facility] [place] Head Brain Wo [id number] [facility] Cont [facility] [place] Abdomen & Pelvis [id number] [facility] Contrast [facility] [place] Anaerobic Blood [id number] [facility] [place] Aerobic Blood [id number] [facility] [place] Count [id number] [facility] [place] [id number] [facility] [place] Influenza Type [facility] [place] Influenza Type A [facility] [place] Gram Stain [id number] [facility] [place] Anaerobic Blood [id number] [facility] [place] Aerobic Blood [id number] [facility] [place] Count [id number] [facility] [place] [id number] [facility] [place] Head Brain Wo [id number] [facility] [place] Chest Single View [id number] [facility] [place] DRAINAGE OF [id number] [facility] BLADDER WITH [facility] [place] DRAINAGE DEVICE, VIA OPENING Video urodynamic [id number] [facility] study 5 Video urodynamic 780408044 Center for study 5 Adv Heart Failure Video urodynamic 823265175 [facility] study 5 [facility] Video urodynamic [id number] [place] [address] Medical [place] Video urodynamic [id number] [facility] 5 Bile duct stone 818106694 [facility] removal Gallbladder 00504714 [facility] excision Hysterectomy 722915678 [facility] Knee maneuver 167404985 [facility] Stent placement 209588236 [facility] Bile duct stone [id number] Center for removal Adv Heart Failure Gallbladder 88460140 Center for excision Adv Heart Failure Hysterectomy 661636695 Center for Adv Heart Failure Knee maneuver [id number] Center for Adv Heart Failure Stent placement [id number] Center for Adv Heart Failure Bile duct stone 354209053 [facility] removal [facility] Gallbladder 19248695 [facility] excision [facility] Hysterectomy [id number] [facility] Knee maneuver 868072867 [facility] Stent placement [id number] [facility] Bile duct stone 868802917 [facility] Gallbladder [id number] [facility] Hysterectomy 303784194 [facility] Knee maneuver 771766617 [facility] Stent placement [id number] [facility] Bile duct stone 884197719 [facility] removal Gallbladder 90250704 [facility] excision Hysterectomy 196174687 [facility] Knee maneuver 956356933 [facility] Stent placement [id number] [facility]
--- OUTSIDE RECORDS SUMMARY | 2018-07-10 13:02 | XMS REPORT ---
:1955 [facility] [address] [place] [address] Care Team Providers Name Role Phone UNKNOWN, [...] <=8/4 Resistant Cefazolin (CFZ) 16 Resistant Ceftriaxone (CLOTH EDGE SINGER) 16 Resistant Ciprofloxacin (CP) >2 Resistant >2 [...] Antibiotic Summary Grid: AUG AM A/S CFZ CLOTH EDGE SINGER CP GM HLG IMP LEV LNZ Group [...] to the Main Lab for Analysis. Urinalysis [id number] 10:12:00 Test Item Value Reference Range Comments Color (test code=COLOR) Yellow Yellow,Straw,Pl yellow Clarity (test code=CLAR) Sl Cloudy Clear Specific Fountain (test code=SPGR) 1.006 1.001-1.035 pH (test code=PH) [...] Bacteria (test code=BACT) Few /HPF CBC with [id number] 09:23:00 Test Item Value Reference Range Comments [...] Lymph Abs (test code=ALYMPH) 3.6 K/cumm 0.5-4.6 [place] Abs (test code=AMONO) 0.3 K/cumm 0.0-1.2 Eos Abs (test code=AEOS) 0.49 K/cumm 0.00-0.74 Baso Abs (test code=ABASO) 0.0 K/cumm 0.00-0.21 RBC Morphology (test Slight Microcytosis ; Slight code=RBCMRPH) Hypochromia ; Moderate Anisocytosis Platelet Est (test Normal Platelet on Smear code=PLTEST) Comprehensive Metabolic [id number] 07:35:00 Test Item Value Reference Range Comments [...] race is not provided, and the patient isAfrican-Moroccan, multiply by 1.212. If sex is not [...] the National Kidney Foundation,http://nkdep.nih .gov POC Glucose, [id number] 07:12:00 Test Item Value Reference Range Comments POC Glucose (test 138 mg/dL 70-115 If you consider your patient code=POCGLUC) critically ill, the Gui Accu-Chek InformII metershould not be used for Glucose determinations.Draw a venous Glucose and send to the Main Lab for Analysis.
[2018-07-10 13:28] VITALS: BMI 28.9
[2018-07-10] MEDS ORDERED: D50W 25 GM/50 ML SYRINGE IV PRN (13:34)
[2018-07-10] MEDS ORDERED: GLUCAGON 1 MG/VIAL IM PRN (13:34)
[2018-07-10] MEDS: NA CHLORIDE 0.9% 1,000 ML IV SCH ×2 (14:00→21:47)
[2018-07-10 14:19] LABS: Absolute Lymphocytes (CBC) 2.3 K/uL (0.7-4.9); Absolute Monocytes 0.5 K/uL (0.1-1.3); Absolute Neutrophil 6.1 K/uL (1.8-8.0); Basophils % 0.4 % (0-1.3); Eosinophils % 2.6 % (0-4.4); Hematocrit 37.6 % (36.0-45.0); Lymphocytes % 25.4 % (15.3-44.8); Monocytes % 5.6 % (3.3-12.3); RBC Red Blood Cell Count 3.89 M/uL (3.86-4.86)
[2018-07-10 14:46] LABS: Platelet Estimate ADEQ; Urine White Blood Cell Casts OK
[2018-07-10 14:51] LABS: Anisocytosis 3+; Blood Morphology Comment NOTED (NOT SEEN)
[2018-07-10 14:52] LABS: ALT/SGPT 13 U/L (12-78); AST/SGOT 18 U/L (15-37); Albumin 2.3 g/dL (3.4-5.0); Alkaline Phosphatase 132 U/L (45-117); BUN Blood Urea Nitrogen 4 mg/dL (7-18); Bicarbonate 30 mmol/L (21-32); Bilirubin Total 0.2 mg/dL (0.2-1.0); CKMB Creatine Kinase MB < 1.0 ng/mL (0.3-3.6); Creatine Phosphokinase 29 U/L (26-192); Glucose Level 170 mg/dL (74-106); Hypochromasia 2+; Lipase 38 U/L (73-393); Potassium 3.5 mmol/L (3.5-5.1); Sodium Level 135 mmol/L (136-145); Stomatocytes 2+; Troponin I < 0.02 ng/mL (0.0-0.045)
[2018-07-10 14:53] LABS: Polychromasia 1+
[2018-07-10 14:55] LABS: Magnesium 1.4 mg/dL (1.8-2.4)
--- NOTE | 2018-07-10 14:58 | RAD REPORT ---
EXAM DESCRIPTION: RAD - Chest Single View - 07/10/2018 2:03 pm CLINICAL HISTORY: Hypotension COMPARISON: June 06, 2017 TECHNIQUE: AP portable chest image was obtained 1400 hours . FINDINGS: Lung volumes are relatively low. Chronic interstitial lung disease is present similar to c omparison. Lung markings are more prominent in the left upper lung field but not clearly different fr om the comparison. Heart and vasculature are normal. No measurable pleural effusion and no pneumothor ax. No acute bony abnormality seen. No acute aortic findings suspected. IMPRESSION: Chronic interstitial lung disease similar to comparison. No acute chest finding seen.
[2018-07-10] MEDS ORDERED: Meropenem 1000 MG/VIAL IV SCH (16:00)
[2018-07-10] MEDS: Meropenem 1,000 MG in NA CHLORIDE 0.9% 100 ML IV SCH ×2 (16:00→21:00)
[2018-07-10 16:07] LABS: Urine Appearance CLEAR; Urine Bilirubin NEGATIVE (NEG); Urine Blood NEGATIVE (NEG); Urine Color YELLOW; Urine Glucose NEGATIVE (NEG); Urine Protein NEGATIVE (NEG); Urine Specific Gravity <=1.005 (1.005-1.030); Urine Urobilinogen 0.2 mg/dL (0.2-1.0)
[2018-07-10] MEDS: INSULIN -REGULAR HUMAN 50 UNIT/0.5 ML ML SQ SCH ×2 (16:30→20:06)
[2018-07-10 16:44] LABS: Urine Bacteria >50 /HPF (<20); Urine RBC <5 /HPF (NONE SEEN)
[2018-07-10 16:45] LABS: Urine Amorphous Sediment 1+ /HPF (NONE SEEN); Urine Culture Reflex Order REFLEXED
--- NOTE | 2018-07-10 19:39 | RAD REPORT ---
EXAM DESCRIPTION: US - Extrem Venous W Compress Robinson - 07/10/2018 7:31 pm CLINICAL HISTORY: leg edema Bilateral leg edema and swelling. COMPARISON: EXT VENOUS W COMPRESSION ROBINSON dated 07/16/2013 TECHNIQUE: Real-time sonographic interrogation of the left and right lower extremity deep venous sys tems was performed. FINDINGS: Normal compressibility, flow augmentation, phasic flow and spontaneous flow is identified in both the left and right lower extremity deep venous systems. IMPRESSION: No sonographic evidence of left or right lower extremity deep venous thrombosis.
[2018-07-10] MEDS ORDERED: Magnesium Sulfate 2gm IVPB 2 G/50 ML BAG IV ONE (20:56)
[2018-07-10] MEDS ORDERED: POTASSIUM 25 MEQ EFFERV TAB PO ONE (21:36)
[2018-07-11] MEDS: Meropenem 1,000 MG in NA CHLORIDE 0.9% 100 ML IV SCH ×3 (00:34→20:26)
[2018-07-11] MEDS: NA CHLORIDE 0.9% 1,000 ML IV SCH ×2 (03:20→16:40)
[2018-07-11 05:56] LABS: BUN Blood Urea Nitrogen 4 mg/dL (7-18); Bicarbonate 33 mmol/L (21-32); Glucose Level 110 mg/dL (74-106); Potassium 3.9 mmol/L (3.5-5.1); Sodium Level 140 mmol/L (136-145)
[2018-07-11] MEDS ORDERED: POTASSIUM 25 MEQ EFFERV TAB PO ONE (05:59)
[2018-07-11] MEDS: INSULIN -REGULAR HUMAN 50 UNIT/0.5 ML ML SQ SCH ×4 (07:30→21:00)
--- NOTE | 2018-07-11 08:36 | RAD REPORT ---
EXAM DESCRIPTION: RAD - Chest Single View - 07/10/2018 11:59 pm CLINICAL HISTORY: PICC Placement COMPARISON: Chest Single View dated 07/10/2018; Chest Single View dated 06/06/2017; Chest Single View dated 03/25/2017; Chest Pa And Lat (2 Views) dated 10/23/2016 FINDINGS: Portable chest was obtained following placement of a left upper extremity PICC line. The c atheter tip projects over the SVC..
--- NOTE | 2018-07-11 08:39 | HP ---
Date of Admission: 07/10/2018 Chief Complaint: Fever, low blood pressure. History Of Present Illness: This is a 63-year-old pleasant female patient who has a suprapubic bill ter and history of recurrent urinary tract infection, although her incidence of urinary tract infecti on is less since she had suprapubic catheter placement. Her last catheter was replaced about 2 days ago by home health nurse. In last few days, she had low-grade fever as reported by the patient's homer dior. She was brought in today to office for her routine office visit, and at that time, daughter i nformed me about all these details, and she also informed me that for last 4 days she has not receive d any of her antihypertensive medication, which is her metoprolol and losartan because her blood pres sure is running on low side. At home, it is running around 101/60 or so and pulse rate around 115 an d this is very unusual for her, so family did not give her losartan or metoprolol in last 4 days. Jordyn jackson is also having some vague abdominal pain and bloating type of sensation associated with nausea. No diarrhea, no vomiting. Denies any cough, cold, congestion, no expectoration. Bloating sensation jordyn jackson has that has been going on for long time, but it is getting worse lately and now associated with na usea. After she was evaluated, she was admitted to the hospital. I was concerned about urinary trac t infection or other source of infection. Allergies: CIPRO, ERYTHROMYCIN, HYDROCODONE, PENICILLIN. Medications: List reviewed. Review of Systems: Constitutional: As mentioned above. Cardiovascular: As mentioned above. GI: As mentioned above. All other systems reviewed and negative. Social History: Negative for smoking and alcohol use. Past Surgical History: Significant for suprapubic catheter placement; surgery for cervical spinal st enosis April 28, 2014; right breast biopsy, which was benign; tonsillectomy; arthroscopic knee isabell mohamud; cholecystectomy; hysterectomy; . Past Medical History: Significant for chronic gastritis, iron-deficiency anemia, neurogenic bladder and quadriplegia due to cervical spinal stenosis and surgery done for that in the past, coronary david ry disease, type 2 diabetes mellitus, hypertension, mixed hyperlipidemia, depression. Physical Examination: Vital Signs: When she was at office, we were not able to check her weight because she was not able t o stand up, height 60 inches, blood pressure was 108/78, pulse rate 118, respiratory rate 15, tempera ture 98.4. General: Awake, alert, oriented, not in distress. HEENT: Head atraumatic, normocephalic. Conjunctivae nonerythematous. Sclerae white. Mouth, no thr ush or edema noted. Ears/Nose, no mass, lesion, discharge noted. Neck: Supple. No JVD, lymph nodes, bruit, thyromegaly noted. Lungs: Bilateral good equal air entry. Clear to auscultation. No rhonchi. No rales. Heart: Normal heart sounds, no murmur or gallop. Abdomen: The patient has suprapubic catheter placement. Soft, nontender. No guarding, rigidity. B owel sounds normoactive. No hepatosplenomegaly. Extremities: Bilateral grade 1 edema. Skin: No rash, ulcer, cellulitis. Lymphatics: No lymph node enlargement in neck, supraclavicular, infraclavicular region. Neuro: The patient has quadriplegia. Chest: Unremarkable. External Genitalia: Deferred. Rectal: Deferred. Laboratory Data: Chest x-ray, no acute cardiopulmonary changes noted except some fibrotic chronic in terstitial lung disease type of pattern noted. Venous Doppler of lower extremity, no evidence of DVT of her right or left leg. White count 9.3, hemoglobin 12.4, platelets 327. Sodium 135, potassium 3 .5, chloride 96, bicarb 30, BUN 4, creatinine 0.5, glucose 170. Hemoglobin A1c 6.3. Lactic acid lev el 6.2, magnesium 1.4. Liver function tests unremarkable. Albumin 2.3, lipase 38, procalcitonin 0.1 5. TSH 1.0. Urinalysis: 2+ esterase, 10 to 20 wbc, bacteria more than 50. Blood culture pending. Urine culture pending. Impression: 1.Urinary tract infection. 2.Abdominal pain. 3.Hypotension. 4.Coronary artery disease. 5.Mixed hyperlipidemia. 6.Type 2 diabetes mellitus. 7.Hypertension. 8.Quadriplegia. 9.Cervical spinal stenosis. Plan: We will go ahead and admit the patient to hospital for further evaluation and management of th is problem. The patient is appropriate for inpatient and is expected to spend 2 midnights in [facility]. Home medications will be continued per order using the patient's home medication supply and I hav e informed the patient's daughter not to give any metoprolol or losartan until further instruction. We will start IV antibiotic, which is meropenem until we get culture and sensitivity results back the n we will decide culture specific antibiotics. IV fluid will be given and we will start DVT prophyla xis starting tomorrow using Lovenox. YAMILETH/DANUTA Voice ID: [id number]
--- NOTE | 2018-07-11 08:47 | RAD REPORT ---
EXAM DESCRIPTION: US - Abdomen Exam Complete - 07/11/2018 8:26 am CLINICAL HISTORY: Abdominal pain. abd pain COMPARISON: Renal Ultrasound-Complete dated 06/04/2017 FINDINGS: Examination is very limited due to patient's paralysis. Mild diffuse fatty liver. No focal liver lesions or intrahepatic biliary dilatation is seen. Cholecystectomy. Common bile duct is normal in caliber measuring 3 mm. The right kidney appears normal in size measuring 9.1 x 4.9 cm without hydronephrosis. The left kidne y was very difficult to visualize due to bowel gas. The spleen is normal in size measuring 7 cm. The pancreas and aorta are obscured by bowel gas. The visualized aspects of the IVC are grossly normal. IMPRESSION: Limited examination without acute finding demonstrated. Mild fatty liver.
[2018-07-11] MEDS: ENOXAPARIN 30 MG/0.3 ML SQ SCH (09:22)
--- NOTE | 2018-07-11 15:53 | RAD REPORT ---
EXAM DESCRIPTION: RAD - Abdomen 1 View (KUB) - 07/11/2018 3:38 pm CLINICAL HISTORY: Abdominal pain FINDINGS: A loop of bowel is dilated within the right pelvis measuring 10 centimeters. Remainder of the bowel gas pattern is unremarkable. A moderate amount of stool is present throughout the colon. IMPRESSION: Dilated loop of bowel within the right pelvis represents colon. It is unclear whether th is is cecum or sigmoid colon. It is recommended that the patient have a complete abdominal plain film series for further evaluation
[2018-07-11] MEDS ORDERED: FOLIC ACID PO SCH (17:30)
[2018-07-11] MEDS ORDERED: MV MIN PO SCH (17:30)
[2018-07-11] MEDS ORDERED: IRON FUM PO SCH (17:30)
[2018-07-11] MEDS ORDERED: LEFLUNOMIDE 10 MG PO SCH (17:30)
[2018-07-11] MEDS: BISACODYL 10 MG RECTAL SUPP PR SCH (20:30)
[2018-07-11] MEDS ORDERED: LUBIPROSTONE 24 MCG PO SCH (21:00)
[2018-07-11] MEDS ORDERED: CYCLOBENZAPRINE 10 MG PO SCH (21:00)
--- NOTE | 2018-07-11 21:48 | RAD REPORT ---
EXAM DESCRIPTION: RAD - Abdomen Acute Series - 07/11/2018 7:01 pm CLINICAL HISTORY: Abdominal pain COMPARISON: July 11, 2018 FINDINGS: A loop of colon is dilated within the pelvis measuring 13 centimeters. Remainder the bowel gas pattern is unremarkable. There is air within nondilated small bowel. Free air is not seen beneath the diaphragm. Lungs appear clear of acute infiltrate. IMPRESSION: Loop of colon is dilated within the pelvis measuring 13 centimeters. It is unclear if th is represents cecum or sigmoid colon. This probably represents an ileus. Close follow-up with either x-ray or CT recommended Examination was discussed with Dr. Manzo 9:40 p.m. July 11, 2018
--- NOTE | 2018-07-11 23:09 | PN ---
Date of Progress Note: 07/11/2018 Subjective: The patient was seen for followup this morning. No new complaints or problems reported. Objective: Vital Signs: Reviewed. HEENT: Unremarkable. Lungs: Clear to auscultation. No rhonchi. No rales. Heart: Sounds normal. Abdomen: Soft. Bowel sounds normal. No guarding, rigidity, tenderness, or distention. Extremities: Trace leg edema. Laboratory Data: Her abdominal ultrasound remains unremarkable. Abdominal x-ray done today shows di lated loop of bowel within the right pelvis representing colon. Moderate amount of stool present thr oughout the colon. Complete abdominal plain film series was advised by radiologist for further evalu ation. Sodium 140, potassium 3.9, chloride 101, bicarb 33, BUN 4, creatinine 0.36, glucose 110. Impression: 1.Urinary tract infection. 2.Rule out ileus. 3.Constipation. 4.Quadriplegia. 5.Diabetes mellitus. 6.Hypertension. 7.Coronary artery disease. Plan: The patient's pulse rate and blood pressure have improved. We will continue current IV fluid antibiotics. We will repeat abdominal x-ray per recommendation from radiologist and I have ordered s ome Dulcolax rectal suppository. The patient does not have any peritonitis or any signs or symptoms of bowel obstruction. We will see her tomorrow for followup. YAMILETH/MODL Voice ID: [id number] Report ID: [id number]
[2018-07-12] MEDS: NA CHLORIDE 0.9% 1,000 ML IV SCH ×3 (05:00→21:09)
[2018-07-12] MEDS: INSULIN -REGULAR HUMAN 50 UNIT/0.5 ML ML SQ SCH ×4 (07:30→21:00)
[2018-07-12] MEDS ORDERED: HOME MED 1 EA UNK (Folic Acid [Folic Acid] 0.8 MG) PO SCH (09:00)
[2018-07-12] MEDS ORDERED: HOME MED 1 EA UNK (Magnesium Oxide [Magnesium] 250 MG) PO SCH (09:00)
[2018-07-12] MEDS ORDERED: NORTRIPTYLINE HCL 25 MG PO SCH (09:00)
[2018-07-12] MEDS ORDERED: HOME MED 1 EA UNK (Cholecalciferol (Vitamin D3) [Vitamin D3] 1,000 UNIT) PO SCH (09:00)
[2018-07-12] MEDS ORDERED: HOME MED 1 EA UNK (L.Acidoph,Paracasei, B.Lactis [Probiotic] 1 EACH) PO SCH (09:00)
[2018-07-12] MEDS: ENOXAPARIN 30 MG/0.3 ML SQ SCH (09:42)
[2018-07-12] MEDS: Meropenem 1,000 MG in NA CHLORIDE 0.9% 100 ML IV SCH ×2 (09:44→21:09)
--- NOTE | 2018-07-12 12:50 | RAD REPORT ---
EXAM DESCRIPTION: CT - Abdomen Pelvis W Contrast - 07/12/2018 11:50 am CLINICAL HISTORY: Distended colon COMPARISON: May 2017 TECHNIQUE: Biphasic, helical CT imaging of the abdomen and pelvis was performed following 100 ml non -ionic IV contrast. Oral contrast was given. All CT scans are performed using dose optimization technique as appropriate and may include automated exposure control or mA/KV adjustment according to patient size. FINDINGS: Prominent interstitial markings noted similar to the2016 study. No focal mass or consoli dation. No pneumothorax or pleural effusion. Heart size is normal with no pericardial effusion. The liver, spleen, and pancreas show no suspicious findings. Cholecystectomy clips are present. No bi liary tree dilatation. Symmetric renal function is seen with no hydronephrosis or suspicious renal mass. No pyelonephritis o r acute parenchymal process. Urinary bladder is contracted around a suprapubic catheter. No gross anton dence for mass. No bladder calculus seen. Uterus is absent. Ovaries are absent or atrophic. No adrena l abnormalities. Oral contrast fills the stomach. No gastric dilatation or wall thickening. No gastric outlet obstruct ion. Small bowel is unremarkable. No appendicitis findings. No acute findings of the cecum or ascendi ng colon. There is a large amount of stool present distending but not dilating the colon from hepatic flexure through the descending colon. Sigmoid is quite tortuous and redundant contributing to an ove rall distention appearance to the abdomen. Morgan of the rectum and distal sigmoid colon showing mild enhancement pattern and are fluid-filled. A minimal colitis component is not excluded. No free air, free fluid or inflammatory stranding. No hernia, mass or bulky lymphadenopathy. Degenerative changes are present without a destructive bone process identified. Soft tissues are prom inent posterior to the coccyx and lower sacrum segments. No destructive component seen. IMPRESSION: From the hepatic flexure to the rectum the colon is distended by a either large stool vo lume, fluid or air. Mild enhancement changes of the rectum and distal sigmoid colon could indicate a mild colitis component. No bowel obstruction, abscess, free air or other surgically emergent finding.
[2018-07-12] MEDS: HOME MED 1 EA UNK (Baclofen [Baclofen] 20 MG) PO SCH ×2 (14:00→21:13)
[2018-07-12] MEDS: GABAPENTIN 400 MG PO SCH ×2 (14:00→21:11)
--- NOTE | 2018-07-12 14:46 | PN ---
Date of Progress Note: 07/12/2018 Subjective: Patient was seen this morning for followup. No new complaints reported by her and her h usband was present with her at bedside. She feels like her abdomen is bloated and distended, the way it is now for last several months ever since she had her suprapubic catheter placement and s ays that even during that surgery, her surgeon had hard time finding bladder from what the way he is describing it to me. No nausea, vomiting. Objective: Vital Signs: Reviewed. HEENT: Examination unremarkable. Lungs: Clear to auscultation. Heart: Sounds normal. Abdomen: Soft. Bowel sounds normal. No guarding, rigidity, tenderness. Abdomen: Appears mildly distended. Extremities: Leg edema present, but better than before. Laboratory Data: Urine culture growing Enterobacter, sensitivity results reviewed. Impression: 1.Urinary tract infection. 2.Rule out adynamic ileus. 3.Quadriplegia. 4.Cervical spinal stenosis. Plan: We will go ahead and continue current antibiotic treatment. The patient reports that even tho ugh she had allergic reaction to Cipro, she has been able to take oral Levaquin without any side effe ct. She also reports that even though she is allergic to penicillin, she has been able to take cepha losporin group of antibiotic. So we will consider appropriate alternate antibiotics at appropriate ti me. Today, plan is to get a CAT scan of abdomen done and GI consultation from Dr. Hernandez who is on c all from GI Service to evaluate the patient's distended colon. Last night, radiologist did call me w ith her abdominal x-ray result. This is not an acute problem on basis of patient's history and I str ongly believe that she has adynamic ileus going on for a long time, the question and concern are the magnitude of distention of colon and potential concern about any perforation if this continues to get more and more distended. So, we will see what histology teacher has to say to help us with that. Details were discussed with the patient and her . Continue Lovenox for DVT prophylaxis. YAMILETH/MODL Voice ID: [id number] Report ID: [id number]
[2018-07-12] MEDS: ZINC SULFATE 220 MG PO SCH (17:00)
[2018-07-12] MEDS ORDERED: GOLYTELY 4000 ML PO SCH (17:30)
[2018-07-12] MEDS: ATORVASTATIN CALCIUM 80 MG PO SCH (21:00)
[2018-07-12] MEDS: DULOXETINE 60 MG PO SCH (21:12)
[2018-07-12] MEDS: BISACODYL 10 MG RECTAL SUPP PR SCH (21:18)
[2018-07-13] MEDS: INSULIN -REGULAR HUMAN 50 UNIT/0.5 ML ML SQ SCH ×4 (07:30→21:00)
[2018-07-13] MEDS: Meropenem 1,000 MG in NA CHLORIDE 0.9% 100 ML IV SCH ×2 (08:24→21:22)
[2018-07-13] MEDS: ZINC SULFATE 220 MG PO SCH ×2 (09:00→18:02)
[2018-07-13] MEDS: GABAPENTIN 400 MG PO SCH ×4 (09:00→21:00)
[2018-07-13] MEDS: HOME MED 1 EA UNK (Baclofen [Baclofen] 20 MG) PO SCH ×4 (09:00→21:00)
[2018-07-13] MEDS: ASPIRIN 81 MG PO SCH ×2 (09:00→18:01)
--- NOTE | 2018-07-13 15:35 | PN ---
Date of Progress Note: 07/13/2018 Subjective: The patient was seen this morning for followup. No new complaints or problems reported by the patient. Her abdomen feels much better as she had several bowel movement as Dr. Hernandez is try ing to get ready for colonoscopy for today. She does not feel as bloated as before since she had thi s multiple bowel movements. No nausea. No vomiting. No other complaints reported by patient. Objective: Vital Signs: Reviewed. HEENT: Examination unremarkable. Lungs: Clear to auscultation. Heart: Sounds normal. Abdomen: Soft. Bowel sounds normal. No guarding, rigidity, tenderness, distention. Extremities: Trace leg edema, overall better than before. Laboratory Data: Urine culture results reviewed. CAT scan of abdomen and pelvis from yesterday reviewed and details were discussed with gastroenterolo gist, Dr. Hernandez yesterday. Impression: 1.Urinary tract infection. 2.Chronic constipation. 3.Rule out ulcerative colitis. 4.Quadriplegia. 5.Coronary artery disease. 6.Diabetes mellitus. Plan: Considering patient had a CAT scan done with IV contrast, we will discontinue metformin. Repe at blood work tomorrow. Continue current antibiotics for urinary tract infection and Dr. Hernandez is p svetlana to do colonoscopy today. We will see her tomorrow. Depending on her condition tomorrow, we will decide if we can discharge her to go home tomorrow or not. The patient reports that she has not had constipation at home. She continues to have regular bowel movement, in spite of that we have se en significant constipation problem. So, we will have to go ahead and make some adjustment on her me dication to try to help her with this problem of constipation that was noted on the CAT scan. Possib le discharge tomorrow. Details were discussed with the patient and her , who was at bedside. YAMILETH/MODL Voice ID: [id number] Report ID: [id number]
[2018-07-13] MEDS ORDERED: PROPOFOL 200 MG/20 ML VIAL IV ONE (16:10)
[2018-07-13] MEDS ORDERED: LIDOCAINE 1% MPF 5 ML VIAL ONE (16:10)
--- NOTE | 2018-07-13 17:10 | ENDO RPT ---
[address], [address] COLONOSCOPY PROCEDURE REPORT EXAM DATE: 07/13/2018 PATIENT NAME: Radha Shipman MR #: [id number] BIRTHDATE: 1955 ATTENDING: Tyler Hernandez Dr STATUS: inpatient VALVE GRINDER: Angella Omalley and Sierra Martinez RN INDICATIONS: The patient is a 63 yr old Female here for a colonoscopy due to abnormal CT of abdomen revealing inflammation / colitis in the rectosigmoid colon, and abdominal pain PROCEDURE PERFORMED: Colonoscopy with biopsy MEDICATIONS: Per Anesthesia. ESTIMATED BLOOD LOSS: None CONSENT: The patient understands the risks and benefits of the procedure and understands that these risks include, but are not limited to: sedation, allergic reaction, infection, perforation and/or bleeding. Alternative means of evaluation and treatment include, among others: physical exam, x-rays, and/or surgical intervention. The patient elects to proceed with this endoscopic procedure. DESCRIPTION OF PROCEDURE: During intra-op preparation period all mechanical medical equipment was checked for proper function. Hand hygiene and appropriate measures for infection prevention was taken. Procedure, possible complications, alternatives including, but not limited to possibility of bleeding, perforation, tear, infection, sepsis, need for surgery, need for blood transfusion, were explained to the patient. After the risks, benefits and alternatives of the procedure were thoroughly explained, Informed consent was verified, confirmed and timeout was successfully executed by the treatment team. The patient was placed in the left lateral position. A digital rectal exam was performed and revealed no abnormalities of the rectum. After appropriate level of anesthesia, the scope was passed. The EC-[id number] ([id number]) endoscope was introduced through the anus and advanced to the distal transverse colon. The quality of the prep was poor. The instrument was then slowly withdrawn as the colon was fully examined. Scope withdrawal time was 8 minutes. COLON FINDINGS: Random biopsies of the transverse/descending colon, sigmoid colon, and rectum. Small internal hemorrhoids were found. Retroflexed views revealed small hemorrhoids. The scope was then completely withdrawn from the patient and the procedure terminated. ADVERSE EVENTS: There were no complications. IMPRESSIONS: 1. Small internal hemorrhoids 2. Random biopsies of the transverse/descending colon, sigmoid colon, and rectum 3. Poor prep RECOMMENDATIONS: 1. await biopsy results RECALL: Tyler Hernandez Dr eSigned: Tyler Hernandez Dr 07/13/2018 5:09 PM cc: Darius Manzo CPT CODES: ICD9 CODES: PATIENT NAME: Radha Shipman MR#: [id number]
[2018-07-13] MEDS: ENOXAPARIN 30 MG/0.3 ML SQ SCH (18:00)
[2018-07-13] MEDS: CLOPIDOGREL BISULFATE 75 MG PO SCH (18:03)
[2018-07-13] MEDS: ISOSORBIDE MONONITRATE 30 MG PO SCH (18:05)
[2018-07-13] MEDS: BISACODYL 10 MG RECTAL SUPP PR SCH (21:00)
[2018-07-13] MEDS: ATORVASTATIN CALCIUM 80 MG PO SCH (21:00)
[2018-07-13] MEDS: DULOXETINE 60 MG PO SCH (21:21)
[2018-07-13] MEDS: NA CHLORIDE 0.9% 1,000 ML IV SCH (21:22)
--- NOTE | 2018-07-13 21:47 | CON ---
Date of Consultation: 07/12/2018 Reason For Consultation: Bloating, nausea and vomiting with colitis noted on abnormal CT of abdomen and pelvis. History Of Present Illness: The patient is a 63-year-old white female with history of iron-deficienc y anemia, neurogenic bladder, quadriplegia, recurrent UTI status post suprapubic tube placement in 2016, coronary artery disease, diabetes, hypertension, mixed hyperlipidemia, depression, statu s post quadriplegia due to spinal stenosis and surgery in the past. The patient presented to the [facility] with fever and low blood pressure, found to have recurrent urinary tract infection despite supr apubic tube placement in July 2016. Also some abdominal pain. CT scan revealed colitis of the r ectosigmoid colon with increased stool noted above the colitis area from the descending colon all the way to the hepatic flexure. Retained stool. The patient complains of increased abdominal bloating with nausea and vomiting since suprapubic placed back in July 2016. The patient also has a histo ry of diarrhea, irritable bowel syndrome in addition to her recurrent UTIs. Past Medical History: Significant for iron deficiency anemia, chronic gastritis, neurogenic bladder, recurrent urinary tract infection status post suprapubic tube placement in July 2016 with abdomi nal bloating, nausea and vomiting since then. Spinal stenosis with quadriplegia after spinal stenosi s surgery in the past. Heart disease, diabetes, hypertension, hyperlipidemia, and depression. Past Surgical History: Includes suprapubic catheter placement, surgery for spinal stenosis April 28, 2014 with subsequent quadriplegia, right breast biopsy which was benign, tonsillectomy, arthrosco pic knee surgery, cholecystectomy, hysterectomy and . Allergies: CIPRO, ERYTHROMYCIN, CODEINE, PENICILLIN. Medications: See list. Social History: She is . Three kids. No tobacco, never. No alcohol. Family History: Father of myocardial infarction. History of hypertension, heavy tobacco use. Mother of stroke, coronary disease, history of hypertension, heavy tobacco use as well. Medications: In the hospital now include Dulcolax, Lovenox, glycogen, Glucagon. She has got a list of home medicines without a name and is also on meropenem, Novolin insulin. Her home medicines inclu de insulin, Lovenox, atorvastatin, baclofen, Dulcolax, Cymbalta, gabapentin, aspirin, Plavix, Isordil , zinc sulfate, iron, folic acid, multivitamin, Arava, Flexeril, Amitiza, vitamin D3, acidophilus pr obiotic, magnesium oxide, Pamelor. Physical Examination: Vital Signs: The patient is afebrile. Temperature 97.1 degrees Fahrenheit, pulse 92, respirations 1 6, blood pressure 113/56, . The patient is 5 feet, 148 pounds, BMI of 29 kg/m2. HEENT: Normocephalic, atraumatic. Anicteric. Pupils equal, round, and reactive to light. Extraocu lar movements are intact. Oropharynx is clear. Neck: Supple. No masses. Respirations: Clear to auscultation bilaterally. Cardiac: Regular rate and rhythm. Gastrointestinal: Positive bowel sounds. Soft, nontender, nondistended. No hepatosplenomegaly, obe se. Extremities: Some lower extremity edema. Unable to move extremities well due to quadriplegia. Laboratory Data: The patient has a white count of 9.3 on the , hemoglobin 12.4, hematocrit 37.6, MCV of 97, platelet count 327. Polys 66%, lymphocytes 25%, monocytes 6%, eosinophils 3%. Yesterday , sodium 140, potassium 3.9, chloride 101, bicarb 33, BUN of 4, creatinine 0.4, glucose 110, calcium 7.6, magnesium 2.0. On the , the patient had a magnesium 1.4, total bilirubin 0.2, AST of 18, AL T of 13, alkaline phosphatase 132, creatine kinase 29, CK-MB less than 1.0. Troponin I less than 0.0 2. Protein 6.0, albumin 2.3, lipase 38. Procalcitonin 0.15. TSH 1.070. UA revealed 10-20 white bl ood cells, less than 5 squamous epithelial cells, greater than 50 bacteria, 2+ leukocyte esterase, po sitive for urinary tract infection. A CT of abdomen and pelvis performed earlier today revealed incr eased stool from the hepatic flexure to descending colon and an inflammation, colitis of the rectosig moid colon with enhancing hester. Impression: 1.Abdominal bloating, nausea and vomiting suprapubic tube placement with recurrent urinary tract inf ections with tube O2 placement in July 2016. 2.Abnormal CT revealing inflamed rectosigmoid colon hester with proximal increased stool from the [place] cending colon to hepatic flexure. Since suppository last night, she has had 5-[address] colonoscopy was approximately 5 years ago, which was negative by her recollection today [facility] [place], [place]. 3.History of diarrhea, predominantly to , recurrent urinary tract infections, suprapubic t ube placement in July 2016 with subsequent nausea, vomiting, bloating since then, diabetes, hyper tension, hyperlipidemia, coronary artery disease status post 9 cardiac stents, lung collapse with 3 m onths induced coma in [facility]. 4.Surgery for spinal stenosis resulted in quadriplegia, she reports. Recommendations: 1.Check previous serologies. 2.Flexible sigmoidoscopy. 3.Colonoscopy tomorrow. 4.Lactinex therapy, probiotics. CHLOE/DANUTA Voice ID: [id number] Report ID: [id number]
[2018-07-13 22:56] VITALS: O2SAT 98
[2018-07-14] MEDS: NA CHLORIDE 0.9% 1,000 ML IV SCH ×3 (05:29→21:52)
[2018-07-14 05:57] LABS: Absolute Monocytes 0.5 K/uL (0.1-1.3); Basophils % 0.9 % (0-1.3); Eosinophils % 4.3 % (0-4.4); Hematocrit 29.8 % (36.0-45.0); Lymphocytes % 34.9 % (15.3-44.8); MPV 7.4 fL (7.6-11.3); Monocytes % 8.1 % (3.3-12.3); RBC Red Blood Cell Count 3.15 M/uL (3.86-4.86)
[2018-07-14 06:18] LABS: BUN Blood Urea Nitrogen 2 mg/dL (7-18); Bicarbonate 29 mmol/L (21-32); Glucose Level 81 mg/dL (74-106); Sodium Level 140 mmol/L (136-145)
[2018-07-14 06:19] LABS: Phosphorus 1.9 mg/dL (2.5-4.9)
[2018-07-14 06:22] LABS: Magnesium 1.2 mg/dL (1.8-2.4); Potassium 2.5 mmol/L (3.5-5.1)
[2018-07-14] MEDS: INSULIN -REGULAR HUMAN 50 UNIT/0.5 ML ML SQ SCH ×4 (07:30→21:00)
[2018-07-14] MEDS: KCL 20 MEQ/100 mL IVPB 20 MEQ/100 ML BAG IV SCH ×5 (07:54→21:51)
[2018-07-14] MEDS ORDERED: Magnesium Sulfate 2gm IVPB 2 G/50 ML BAG IV ONE (08:00)
[2018-07-14] MEDS: Meropenem 1,000 MG in NA CHLORIDE 0.9% 100 ML IV SCH ×2 (08:30→21:52)
[2018-07-14] MEDS: ENOXAPARIN 30 MG/0.3 ML SQ SCH (08:34)
[2018-07-14] MEDS: ASPIRIN 81 MG PO SCH ×2 (08:37→08:38)
[2018-07-14] MEDS: HOME MED 1 EA UNK (Baclofen [Baclofen] 20 MG) PO SCH ×3 (08:38→21:51)
[2018-07-14] MEDS: ZINC SULFATE 220 MG PO SCH (08:38)
[2018-07-14] MEDS: CLOPIDOGREL BISULFATE 75 MG PO SCH (08:39)
[2018-07-14] MEDS: ISOSORBIDE MONONITRATE 30 MG PO SCH (08:39)
[2018-07-14] MEDS: GABAPENTIN 400 MG PO SCH ×3 (08:39→21:50)
[2018-07-14 08:54] LABS: Anisocytosis 2+; Blood Morphology Comment NOTED (NOT SEEN); Platelet Estimate ADEQ; Urine White Blood Cell Casts OK
[2018-07-14 16:37] LABS: Magnesium 1.8 mg/dL (1.8-2.4)
[2018-07-14] MEDS ORDERED: MAGNESIUM SULFATE 1 gm IVPB 1 GM/100 ML BAG IV SCH (17:41)
[2018-07-14] MEDS: BISACODYL 10 MG RECTAL SUPP PR SCH (21:00)
[2018-07-14] MEDS: ATORVASTATIN CALCIUM 80 MG PO SCH (21:00)
[2018-07-14] MEDS: DULOXETINE 60 MG PO SCH (21:50)
--- NOTE | 2018-07-15 01:37 | PN ---
Date of Progress Note: 07/14/2018 Subjective: The patient was seen this morning for followup. No new complaints, problems reported by her. Colonoscopy results reviewed, were unremarkable except hemorrhoids and it was a poor prep as Donya Hernandez reported. Denies any nausea, vomiting, abdominal pain. Objective: Vital Signs: Reviewed. HEENT: Examination unremarkable. Lungs: Clear to auscultation. Heart: Sounds normal. Abdomen: Soft. Bowel sounds normal. No guarding, rigidity, tenderness, distention. Extremities: No leg edema. Laboratory Data: White count 5.7, hemoglobin 9.9, platelets 315. Sodium 140, potassium 2.5, magnesi um 1.2, chloride 102, bicarb 29, BUN 2, creatinine less than 0.15, glucose 81. Impression: 1.Urinary tract infection. 2.Hypokalemia. 3.Hypomagnesemia. 4.Coronary artery disease. 5.Diabetes mellitus. Plan: We will go ahead and replace electrolyte per protocol. Continue current antibiotics. Continu e other current medications. I will see her tomorrow for followup, possible discharge to go home [place] depending on her condition. Details were discussed with her and her who was at bedside . YAMILETH/MODL Voice ID: [id number] Report ID: [id number]
[2018-07-15] MEDS ORDERED: POTASSIUM 25 MEQ EFFERV TAB PO ONE (05:11)
[2018-07-15] MEDS: INSULIN -REGULAR HUMAN 50 UNIT/0.5 ML ML SQ SCH ×2 (07:30→11:30)
[2018-07-15] MEDS ORDERED: SPIRONOLACTONE 25 MG TABLET PO SCH (09:00)
[2018-07-15] MEDS: ENOXAPARIN 30 MG/0.3 ML SQ SCH (09:00)
[2018-07-15] MEDS ORDERED: levoFLOXacin 500 MG TAB PO SCH (09:00)
[2018-07-15] MEDS: ASPIRIN 81 MG PO SCH (09:37)
[2018-07-15] MEDS: ZINC SULFATE 220 MG PO SCH (09:38)
[2018-07-15] MEDS: CLOPIDOGREL BISULFATE 75 MG PO SCH (09:39)
[2018-07-15] MEDS: GABAPENTIN 400 MG PO SCH (09:39)
[2018-07-15] MEDS: ISOSORBIDE MONONITRATE 30 MG PO SCH (09:39)
[2018-07-15] MEDS: HOME MED 1 EA UNK (Baclofen [Baclofen] 20 MG) PO SCH (09:42)
[2018-07-15 12:17] VITALS: BP 139/82; TEMP 98.3
--- NOTE | 2018-07-15 17:08 | P.PN ---
Subjective Date of Service: 07/15/18 Subjective: Improving Physical Examination - Vital Signs Temperature: 98.3 F Blood Pressure: 139/82 Pulse: 91 Respirations: 16 Pulse Ox (%): 96 - Studies Laboratory Data (last 24 hrs) 07/15/18 12:00: Potassium Cancelled 07/15/18 04:40: Potassium 3.0 L
--- NOTE | 2018-07-16 05:35 | DS ---
Date of Discharge: 07/15/2018 Subjective: The patient was seen this morning for followup. Her was with her at bedside. N o new complaints or problems reported. Physical Examination: Vital Signs: Reviewed. HEENT: Unremarkable. Lungs: Clear to auscultation. Heart: Sounds normal. Abdomen: Soft. Bowel sounds normal. No guarding, rigidity, tenderness, or distention. Extremities: Bilateral edema of arms and legs present. Laboratory Data: Upon admission, white count was 9.3, hemoglobin 12.4, platelets 327. Yesterday, wh ite count 5.7, hemoglobin 9.9, platelets 315. Yesterday, sodium 140, potassium 2.5, chloride 102, bi carb 29, BUN 2, creatinine less than 0.15, glucose 81, magnesium 1.2. Urine culture growing Enteroba cter. Hospital Course: A 63-year-old female patient admitted to hospital with fever and low blood pressure . Please see dictated H and P for more information. After she was evaluated at office, she was admi tted to hospital. I was also concerned about infection, most likely urinary tract infection. Routin e blood work was done, urinalysis was done, and it did come back positive for urinary tract infection . She was started on empiric antibiotics. The patient reported that ever since she had a suprapubic catheter placement, she feels bloated. Her stomach appears slightly distended, and this has not linda nged any lately. We did obtain abdominal ultrasound, which was unremarkable. Abdominal x-ray showed distended colon, and radiologist was not sure whether it was cecum or sigmoid colon. CAT scan of abdomen was done for this reason for further evaluation, and Dr. [facility] Dr. Hernandez did a colonoscopy on her and found out that the patient had hemorrhoids with evidence of poor prep, and no further intervention, no abnormality was detected. Before colonoscopy, the pat iegiorgio had received Dulcolax rectal suppository with good result, having bowel movement, and her abdomi nal bloating problem already had subsided with that. Overall, she is feeling much better. Her potas sium and magnesium were low, which we started replacing it yesterday with electrolyte replacement pro tocol. This morning, her potassium was 3 and another replacement dose of potassium chloride was give n to her. The patient will be discharged to go home in stable condition with following discharge med ication and instruction. Discharge Diagnoses: 1.Urinary tract infection. 2.Chronic constipation. 3.Generalized edema. 4.Hypertension. 5.Lqy-[id number]-unothdnmr diabetes mellitus. 6.Coronary artery disease. 7.Mixed hyperlipidemia. 8.Quadriplegia. 9.Cervical spinal stenosis. 10.Hypokalemia. 11.Hypomagnesemia. Discharge Medications/instructions: 1.Continue prior home medication except do not take any losartan. 2.Take Levaquin 500 mg p.o. daily as prescribed for 1 week, and the patient reports that even though she had allergic reaction to Cipro IV, she has been able to take Levaquin by mouth without any side effect. 3.Take qlde-gcr-hderndt Dulcolax rectal suppository once a week. 4.Follow up at my office in 2 weeks and follow up with Dr. Hernandez in 3 weeks. 5.Take spironolactone 25 mg p.o. daily for 1 week. YAMILETH/MODL Voice ID: [id number] Report ID: [id number]
== END 2018-07-15 12:29 | disposition home or self-care (01) | DRG 689 ==
LOC: 4TH 12:48
PROVIDERS: ADMIT Internal Medicine; ATTEND Internal Medicine
PROC: 02HV33Z Insertion of Infusion Device into Superior Vena Cava, Percutaneous Approach (ICD-10-PCS; 2018-07-10)
PROC: 0DBL8ZX Excision of Transverse Colon, Via Natural or Artificial Opening Endoscopic, Diagnostic (ICD-10-PCS; 2018-07-13)
PROC: 0DBN8ZX Excision of Sigmoid Colon, Via Natural or Artificial Opening Endoscopic, Diagnostic (ICD-10-PCS; 2018-07-13)
PROC: 0DBP8ZX Excision of Rectum, Via Natural or Artificial Opening Endoscopic, Diagnostic (ICD-10-PCS; 2018-07-13)
PROC: 0DBM8ZX Excision of Descending Colon, Via Natural or Artificial Opening Endoscopic, Diagnostic (ICD-10-PCS; principal; 2018-07-13 12:30)
DX: N39.0 Urinary tract infection, site not specified (principal); G82.50 Quadriplegia, unspecified; Z88.1 Allergy status to other antibiotic agents; Z88.5 Allergy status to narcotic agent; Z88.0 Allergy status to penicillin; K29.50 Unspecified chronic gastritis without bleeding; D50.9 Iron deficiency anemia, unspecified; N31.8 Other neuromuscular dysfunction of bladder; I25.10 Atherosclerotic heart disease of native coronary artery without angina pectoris; E78.2 Mixed hyperlipidemia; F32.9 Major depressive disorder, single episode, unspecified; E11.9 Type 2 diabetes mellitus without complications; I10 Essential (primary) hypertension; I95.9 Hypotension, unspecified; M48.02 Spinal stenosis, cervical region; B96.89 Other specified bacterial agents as the cause of diseases classified elsewhere; K59.09 Other constipation; K64.8 Other hemorrhoids; K52.9 Noninfective gastroenteritis and colitis, unspecified; E87.6 Hypokalemia; E83.42 Hypomagnesemia; Z79.84 Long term (current) use of oral hypoglycemic drugs
CPT/HCPCS: 36415; 71045; 74018; 74022; 74177; 76700; 80048; 80053; 81001; 82550; 82553; 82962; 83036; 83605; 83690; 83735; 84100; 84132; 84145; 84443; 84484; 85025; 87040; 87077; 87086; 87088; 87186; 88305; 93970; J1650; J2704; J3475; J7030; Q9967